=== PATIENT | male | born 1960 | race Caucasian/White ===

== ENCOUNTER → 2022-07-07 | Outpatient (CLI) | payer OTHER, SELFPAY ==
--- NOTE | 2022-07-07 06:57 | RAD_ITS ---
STUDY: X-RAY - CERVICAL SPINE REASON FOR EXAM: Male, 62 years old. Radiculopathy, cervical region TECHNIQUE: 3 view(s) of the cervical spine were obtained. COMPARISON: None FINDINGS: Normal anterior atlantoaxial articulation. Normal odontoid process. There is reversal of the normal cervical lordosis. There is 3 mm retrolisthesis C5, otherwise normal alignments. There is multi-level endplate spondylosis. There is multi-level degenerative disc disease with multilevel disc space narrowing. The soft tissue structures are unremarkable. There is no demonstrated fracture of the cervical spine. RAD/Cerv Spine 2 or 3 Views IMPRESSION: No abnormality. Degenerative changes as above. Electronically Signed: Rodrigo Mosquera MD at 18:22 EDT ,
--- NOTE | 2022-07-07 06:57 | RAD_ITS ---
STUDY: X-RAY - RIGHT SHOULDER REASON FOR EXAM: Male, 62 years old. RIGHT SHOULDER PAIN TECHNIQUE: 4 view(s) of the shoulder. COMPARISON: None. FINDINGS: Normal glenohumeral articulation. Normal acromioclavicular joint. Normal acromion. Normal humeral head and visualized proximal humerus. The soft tissue structures are unremarkable. There is no demonstrated fracture. Normal visualized pulmonary apex. RAD/Shoulder min 2 Views IMPRESSION: Normal x-ray examination of the shoulder. Electronically Signed: Rodrigo Mosquera MD at 20:26 EDT ,
== END | disposition home or self-care (01) ==
LOC: RAD 06:53
PROVIDERS: PCP Nurse Practitioner Family; Referring Provider Anesthesiology Pain Medicine; Visit Provider Anesthesiology Pain Medicine
DX: M25.511 Pain in right shoulder (principal); M54.12 Radiculopathy, cervical region
CPT/HCPCS: 72040; 73030

== ENCOUNTER → 2022-07-27 | Outpatient (CLI) | payer OTHER, SELFPAY ==
--- NOTE | 2022-07-27 07:00 | MRI_ITS ---
STUDY: MRI CERVICAL SPINE REASON FOR EXAM: Male, 62 years old. Radiculopathy TECHNIQUE: MRI examination cervical spine fusion protocol including multiplanar multiecho noncontrast imaging. Contrast: No contrast administered. COMPARISON: None FINDINGS: Vertebral bodies and alignment: 1. Vertebral body height is maintained, there is a short segment reversal cervical lordosis from C4 to C7. No evidence of marrow edema or occult fracture. 2. No evidence of marrow edema, fracture or subluxation. 3. Prevertebral soft tissue planes have normal appearance. 4. Normal appearance the odontoid process and alignment of the craniocervical junction. 5. Normal appearance the posterior muscular fascial planes of the cervical spine, and the posterior ligamentous support structure the cervical spine is intact. Intervertebral disc levels: C2-3: No disc herniation or canal stenosis. Mild LEFT foraminal narrowing due to uncovertebral joint hypertrophic changes. No osiris nerve root impingement. C3-4: Minimal broad-based disc bulge, no evidence of disc herniation or canal stenosis. Bilateral foraminal narrowing is noted severe on the LEFT moderate on the RIGHT. C4-5: Disc desiccation, no evidence of disc herniation or canal stenosis. Mild LEFT foraminal narrowing due to uncovertebral joint hypertrophic changes. Normal RIGHT neural foramen. C5-6: Disc desiccation, broad-based chronic appearing disc protrusion, deformity the anterior epidural space at, cord contact noted however thecal sac measures 11 mm in AP dimension. No cord compression. There is narrowing of neural foramina severe on the LEFT and moderate to severe on the RIGHT. C6-7: Disc desiccation, broad-based posterior disc bulge, no evidence canal stenosis. Bilateral foraminal narrowing contributed about vertebral joint hypertrophic changes. Severe bilateral foraminal stenosis noted. C7-T1: Normal endplates. Normal disc height, signal and morphology. Normal central canal and intervertebral neural foramina. Spinal CORD: There is normal appearance the spinal cord. There is cord contact at C5-6 however no evidence of acute cord compression. No intramedullary signal abnormality. No evidence of syrinx. Cervical medullary junction is normal. MRI/Spine Cervical (Routine) IMPRESSION: 1. Short segment reversal cervical lordosis I, there is a chronic appearing broad-based disc protrusion at C5-6. Deformity the intervertebral space and mild cord contact without evidence of acute cord compression. Bilateral foraminal stenosis noted at this level greater on the LEFT than RIGHT. 2. Mild chronic appearing disc bulges at remaining levels. No other evidence of disc herniation canal stenosis or cord compression. 3. Multilevel foraminal narrowing as detailed with potential of multilevel nerve root impingement. 4. Foraminal narrowing is severe on the LEFT at C3-4, severe at C5-6 greater on the LEFT than RIGHT, severe bilateral foraminal narrowing at C6-7. 5. Normal appearance of the spinal cord without intramedullary signal abnormality. No acute cord compression or syrinx Electronically Signed: Jerrell Lugo MD at 20:59 EDT ,
== END | disposition home or self-care (01) ==
PROVIDERS: PCP Nurse Practitioner Family; Referring Provider Anesthesiology Pain Medicine; Visit Provider Anesthesiology Pain Medicine
DX: M54.12 Radiculopathy, cervical region (principal)
CPT/HCPCS: 72141

== ENCOUNTER 2023-02-16 08:35 | Day surgery (SDC) | payer OTHER, SELFPAY ==
--- NOTE | 2023-02-08 12:30 | EKG12_ITS ---
Test Reason : PRE OP Blood Pressure : / mmHG Vent. Rate : 093 BPM Atrial Rate : 093 BPM P-R Int : 146 ms QRS Dur : 080 ms QT Int : 346 ms P-R-T Axes : 044 -21 027 degrees QTc Int : 430 ms Normal sinus rhythm Normal ECG Confirmed by MARINA WHEELER, RAISSA ([id number]), book editor ABDIRIZAK CASILLAS ([id number]) on 02/13/2023 8:37:24 AM Referred By: BILLY Confirmed By:EFREN GRAY MD
[2023-02-08 13:39] LABS: Absolute Lymphocyte Count 1.77 X10^3/uL (0.83-4.51); Absolute Neutrophil Count 7.9 X10^3/uL (2.0-7.7); Basophil# 0.05 X10^3/uL; Basophil% 0.5 % (0-1); Hematocrit 44.9 % (40-54); Hemoglobin 14.7 g/dL (13.0-16.5); Lymphocyte # 1.77 X10^3/ul (0.83-4.51); Mean Corp Hgb Conc 32.7 g/dL (32-36); Mean Corpuscular Hgb 29.5 pg (27.0-32.0); Mean Corpuscular Volume 90.2 fL (80-94); Mean Platelet Vol. 10.2 fl (6.2-12.0); Monocyte# 0.56 X10^3/uL; Monocyte% 5.4 % (0-10); NRBC Flagged by Analyzer 0 % (0-5); Neutrophil % 75.7 % (47-70); Platelet Count 235 K/mm3 (150-450); RBC Distribution Width SD 39.5 fl (35.1-43.9); Red Blood Count 4.98 M/mm3 (4.6-6.2); White Blood Count 10.4 K/mm3 (4.4-11.0)
[2023-02-16] VITALS (7 sets, daily range): BP systolic 114–136; BP diastolic 61–68; PULSE 61–80; RESP 16; TEMP 36.3–36.6; O2SAT 94–100; BMI 26.4
[2023-02-16] MEDS: Lactated Ringers 1,000 ML 15 ML IV (09:04)
[2023-02-16 09:53] LABS: Bedside Glucose 137 mg/dL (74-106)
[2023-02-16] MEDS: Ropivacaine 0.5% 30 ML Vial (10:56)
--- NOTE | 2023-02-16 11:30 | OP.PCM_ITS ---
Report of Operation Date of Procedure: 02/16/23 Description of Surgical Findings:: Preoperative diagnosis: Bilateral carpal Tunnel Syndrome Postoperative diagnosis: Bilateral carpal Tunnel Syndrome Procedure: Bilateral endoscopic Carpal Tunnel Release Surgeon: Florentino Schneider DO Anesthesia: MAC with local Instructor Ground Services: Pedro Rosario CRNA Complications: None apparent Drains: None Estimated blood loss: 2 cc Urinary output: None measured IV fluids: Per anesthesia record Specimens: None Surgical implants: None Surgical indications: This is a 62-year-old male seen in the outpatient setting diagnosed with bilateral carpal tunnel syndrome. The patient failed nonoperative management in the form of bracing, anti-inflammatory medications, activity modification. Operative intervention in form of endoscopic possible open carpal tunnel release was offered to bilateral hands. The risks, benefits, alternatives to procedure were reviewed with patient at length in the outpatient setting and he agreed to proceed. Risks included but were not limited to bleeding, infection, loss of life or limb, risk of anesthesia, incomplete release, neurovascular injury, persistent pain, need for additional surgery, stiffness, loss of hand function. Patient expressed understanding wish to proceed with surgery. Informed consent obtained in the office. Description of procedure: Patient was seen in preoperative holding area. Patient was identified by name, medical record number, date of . The operative extremities were marked with a surgical marker. We confirmed informed consent with the patient and all questions were answered to the patient's satisfaction. At time of his procedure, patient was brought to the operative suite and positioned supine a standard operating table. All bony prominences were well- padded. Gentle MAC anesthesia was induced. Bilateral upper extremities were then prepped for surgery by first applying a well-padded pneumatic tourniquet to the upper arms. We spun the bed approximately 45 degrees. 2 g Ancef was administered prior to incision by anesthesia staff. Tumescent field blocks were administered with 10 cc in each and of 0.5% plain ropivacaine. We then prepped and draped bilateral upper extremities. We performed a timeout at this point confirming side, site, and operation to be performed. No concerns voiced and elected to proceed. I began surgery on the right side, as this was the more symptomatic side. Hand was exsanguinated and tourniquet was inflated to 250 mmHg. I first marked a transverse incision on the ulnar aspect of the palmaris longus tendon in the proximal wrist crease approximately 1 cm in length. Skin was sharply incised with 15 blade scalpel. Superficial veins were cauterized with bipolar cautery. The fatty layer was dissected through bluntly until the antebrachial fascia was encountered. The antebrachial fascia were split in line with the fibers as well as the incision with the Littler scissors. I then placed a skin hook around the antebrachial fascia distally. I open the proximal 1 cm longitudinally of the an tebrachial fascia. I then sequentially dilated within the carpal tunnel utilizing Arthrex supplied dilators. I then utilized there synovial elevator to debride the undersurface of the transverse carpal ligament free from synovium. I then removed the elevator and inserted the centerline endoscopic carpal tunnel release system. The transverse carpal ligament was well visualized and free from underlying synovium. I identified its distal aspect by blotting the skin and perivascular fat was visualized. I then carefully deployed the scalpel from the sheath and, in retrograde fashion, sequentially released the transverse carpal ligament longitudinally. No aberrancies of the median nerve were apparent. Complete release was confirmed with Littler scissors acting as a probe. The tourniquet was then deflated. Hemostasis was excellent. Skin was closed with interrupted horizontal mattress suture of 4-0 nylon suture. Sterile compression dressing was then applied. I then turned my attention to the left side. Hand was exsanguinated and tourniquet inflated to 250 mmHg. I then marked a transverse incision on the ulnar aspect of the palmaris longus tendon in the proximal wrist crease approximately 1 cm in length. Skin was sharply incised with 15 blade scalpel. Superficial veins were cauterized with bipolar cautery. The fatty layer was dissected through bluntly until the antebrachial fascia was encountered. The antebrachial fascia were split in line with the fibers as well as the incision with the Littler scissors. I then placed a skin hook around the antebrachial fascia distally. I opened the proximal 1 cm longitudinally of the antebrachial fascia. I then sequentially dilated within the carpal tunnel utilizing Arthrex supplied dilators. I then utilized there synovial elevator to debride the undersurface of the transverse carpal ligament free from synovium. I then removed the elevator and inserted the centerline endoscopic carpal tunnel release system. The transverse carpal ligament was well visualized and free from underlying synovium. I identified its distal aspect by blotting the skin and perivascular fat was visualized. I then carefully deployed the scalpel from the sheath and, in retrograde fashion, sequentially released the transverse carpal ligament longitudinally. No aberrancies of the median nerve were apparent. Complete release was confirmed with Littler scissors acting as a probe. The tourniquet was then deflated. Hemostasis was excellent. Skin was closed with interrupted horizontal mattress suture of 4-0 nylon suture. Sterile compression dressing was then applied. Patient tolerated procedure well without apparent complication. Patient was awakened from anesthesia. Patient was transferred to PACU in stable condition. Intraoperative medications: Post Operative Plan: Weightbearing: Weightbearing as tolerated bilateral upper extremities Antibiotics: Ancef 2 g x 1 dose preoperatively DVT Prophylaxis: None indicated Cooney: None Dressing: Okay to remove on postoperative day #2, shower. Apply Band-Aid X-Rays: None Pain Medication: [facility] provided Follow-up: 2 weeks post-operatively with me in the office
[2023-02-16] MEDS: Ketorolac 30 MG/ML Syringe IV (11:50)
== END 2023-02-16 12:25 | disposition home or self-care (01) ==
LOC: SDC 08:36 → AC 08:37
PROVIDERS: PCP Nurse Practitioner Family; Referring Provider Student in an Organized Health Care Education/Training Program; Visit Provider Student in an Organized Health Care Education/Training Program
PROC: (CPT 29848; principal; 2023-02-16 10:10)
DX: G56.03 Carpal tunnel syndrome, bilateral upper limbs (principal); E11.9 Type 2 diabetes mellitus without complications; Z86.718 Personal history of other venous thrombosis and embolism; E78.00 Pure hypercholesterolemia, unspecified; Z87.09 Personal history of other diseases of the respiratory system; Z86.16 Personal history of COVID-19; M18.0 Bilateral primary osteoarthritis of first carpometacarpal joints; M19.042 Primary osteoarthritis, left hand; E66.3 Overweight; Z68.26 Body mass index [BMI] 26.0-26.9, adult
CPT/HCPCS: 29848; 01810; 36415; 82962; 85025; 93005; J7120; J2405

== ENCOUNTER 2023-06-15 07:30 | Outpatient (RCR) | payer OTHER, SELFPAY ==
--- NOTE | 2023-05-26 12:51 | HP.OTEVAL ---
Patient's Visit Information Visit Information Visit Information: MARIELENA FARRELL Jr. is a 62 year old M, referred to Occupational Therapy by Dr. Florentino Schneider DO, with a diagnosis of OA/CTS. Date of Evaluation: 05/26/23 Occupational Therapist: VIJI Wong/Tameka, CHT Subjective Subjective: This 62 year old male was seen for OT eval with dx of CTS and had sx in 2022. Pt states he did have CTS for about two years prior to having sx. Pt also was dx with Bilateral primary osteoarthritis of first carpometacarpal joints. Pt is taking meloxicam in am and pm - pt states he just started back up on that medication. pt state pain in bilateral thumbs and wrist- pt states he does not wear thumb or wrist braces. pt is right handed works round [employer]. 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 Pain right hand: Current Pain Intensity: 1 Pain Intensity Range: 5 left hand: Current Pain Intensity: 2 Pain Intensity Range: 7 ROM Wrist: right 65/60 pain with motion left 75/70 CMC: right 20 left 15* MP: right 40 left 30* IP: right 55 left 50* Palmar Abduction: right 40* therapist felt grind left 30* ROM Comments: therapist can feel grinding with just CMC AROM Strength Sprayer Automatic Spray Machine: right 65# left 85# Lateral Pinch: right 12# left 14# Tripod Pinch: right 10# left 12# Sensation Sensation Comments: denies Quick DASH-Disab of Arm,Shoulder& Hand Quick DASH Score: 55.3550 Goals Goal:: pt will report no pain greater than 3/10 with use of cmc bracing for heavy work and yard tasks by d.c Goal:: Pt will demo understanding of joint protection and ergonomics when performing BADLs and IADLs by d/c Pt will demo understanding of adaptive Equipment use to decrease stress on joints to allow pt to perform BADSL and IADLS at MARTHA level. Goal:: Dash score will improve 10points indication of improved performance of ADLs by d.c Goal:: Pt will demo understanding of using supportive bracing 80% of workday/ADLS to decrease stress on tendon origin to allow healing and decrease pain by end of 3nd session. Rehabilitation General Assessment: pt demo with positive symptoms of bilateral CMC J OA pain and deformity. this is limiting pts ability to perform daily mtg of work tasks. pt would benefit from skilled OT services 1-2x week for 3 -4 weeks to ed. pt on joint protection, use of bracing, and ergo changes to decrease stress on bilateral hands, to decrease pain by d.c. today therapist ed pt on joint protection and ergo changes for work tasks- as well as bracing cmcj- pt receptive to bracing- will continue to explore bracing to ensure good ability with brace- pt demo understanding and agree to POC. Rehabilitation Potential: Good Anticipated Interventions Anticipated Interventions: A/AAROM/PROM, Strengthening and Triggerpoint Release Visit Plan Frequency: 2x /Week Duration: 3 Weeks TEXT: Thank you for the opportunity to evaluate your patient. For Medicare and Medicare HMO plans, please review the plan of care and approve it. It will need to be FAXED BACK to us at [phone] for Medicare purposes. Please let me know if there are questions or concerns regarding this plan of care. Physician Signature: Date:
--- NOTE | 2023-06-15 07:55 | HP.OTDCSUM ---
Discharge Summary D/C Summary: It has been my pleasure to treat MARIELENA FARRELL Jr. under orders from Dr. Florentino Schneider, DO, for the diagnosis of OA/CTS for a total of 7 visit(s). Please see the following information for a summary of their discharge status. 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 05/06-07/06. Right more painful than left- pt has been ed. in joint protection fátima. and work ergo. etc. pt demo understanding. Wrist: right 65/70 ( flexion increased by 10*) left 75/70 no change from eval CMC: right 25 increased by 5* left 20* increase from 15* MP: right 45* increase by 5* left 40* increase from 30* IP: right 60* increased from 55 left 60* increase from 50* Palmar Abduction: right 40* therapist felt grind left 30* ROM Comments: therapist can feel grinding with just CMC AROM Strength Farm Management Teacher: right 60# decrease but painful with resistive furnace brazer testing initial was 65# left 85# Lateral Pinch: right 12# left 14# Tripod Pinch: right 10# left 12# pts ROM and strength limited with Pain . pt using bracing to support CMC while working. Goals Patient Goals: Decrease Pain and Use Hand/Wrist/Arm Normally Again Goal:: pt will report no pain greater than 3/10 with use of cmc bracing for heavy work and yard tasks by d.c (Goal is met) Goal:: Pt will demo understanding of joint protection and ergonomics when performing BADLs and IADLs by d/c ( goal Met) Pt will demo understanding of adaptive Equipment use to decrease stress on joints to allow pt to perform BADSL and IADLS at MARTHA level. (Goal Met) Goal:: Dash score will improve 10points indication of improved performance of ADLs by d.c Goal:: Pt will demo understanding of using supportive bracing 80% of workday/ADLS to decrease stress on tendon origin to allow healing and decrease pain by end of 3nd session. ( goal met) Plan Plan: D/C D/C Information Discharge Comments: Pt was seen in OT for 7 sessions- pt did Meet OT goals. Pt will return to for Further discussion on pursuing [facility] [place] in [place]- Nov. d/c sentence: If there are questions or concerns regarding this patient's occupational therapy, please fell free to call me at [phone]. Thank you for the referral of this patient. Sincerely, Cece Almonte, OTR/L, CHT
== END 2023-06-15 09:41 | disposition home or self-care (01) ==
LOC: OT 07:30
PROVIDERS: PCP Nurse Practitioner Family; Referring Provider Student in an Organized Health Care Education/Training Program; Visit Provider Student in an Organized Health Care Education/Training Program
DX: M18.0 Bilateral primary osteoarthritis of first carpometacarpal joints (principal); G56.03 Carpal tunnel syndrome, bilateral upper limbs
CPT/HCPCS: 97035; 97110; 97140; 97166; 97530

== ENCOUNTER 2024-02-02 08:01 | Emergency (ER) | payer OTHER, SELFPAY ==
[2024-02-02] VITALS (7 sets, daily range): BP systolic 109–130; BP diastolic 62–75; PULSE 68–86; RESP 15–20; TEMP 36.4–37; O2SAT 96–100; BMI 24.5
--- NOTE | 2024-02-02 08:12 | CT_ITS ---
STUDY: CT ABDOMEN AND PELVIS WITH CONTRAST REASON FOR EXAM: Male, 63 years old. Right flank pain RADIATION DOSAGE (If Supplied By Facility): CTDIvol = ( 18.23 ) mGy, DLP = ( 998.16 ) mGycm TECHNIQUE: Transaxial images were obtained from the dome of the diaphragm to the symphysis pubis without oral contrast. IV 100mL Isovue-300 was administered. Sagittal and coronal images were reconstructed. Individualized dose optimization techniques were used for this CT. COMPARISON: None. FINDINGS: The visualized lung bases are unremarkable. Coronary artery calcification. There is decreased attenuation of the liver consistent with steatosis. Normal gallbladder and extrahepatic biliary system. Normal spleen. Normal pancreas. Normal bilateral adrenal glands. There is an 8 mm cyst in the anterior aspect of the right kidney. There is a 4.8 mm nonobstructive left intrarenal calculus. There is a small hiatal hernia. Normal small intestine. Normal colon. The appendix is visualized and appears normal. Normal abdominal aorta. Normal inferior vena cava. Normal retroperitoneum. Normal urinary bladder. There is heterogeneous enlargement of the prostate measuring 5 cm x 5.5 cm. This causes indentation of the bladder base. Normal abdominal wall. Disc space narrowing and degeneration with spondylosis at the L5-S1 CT/Abdomen/Pelvis W IV Cont ONLY IMPRESSION: Nonobstructive left intrarenal calculus. Small right renal cyst. No evidence of ureteral obstruction. Fatty infiltration of the liver. Heterogeneous enlargement of the prostate with indentation at the bladder base. Electronically Signed: Dez Story MD at 9:13 EST ,
--- NOTE | 2024-02-02 08:13 | EX.ED.DYSGE1 ---
HPI History of Present Illness Chief Complaint: Flank Pain Narrative Narrative: Patient is a 63-year-old male who is presenting to the ER with chief complaint of nausea, vomiting, right flank pain. Patient is at bedside. Patient started having right lower back and right flank pain yesterday at 1 PM. Patient left work. Patient's pain was intermittent last evening with intensity. Patient said he was able to sleep, but when he woke up this morning he was having more right lower back pain and right flank pain. Patient has no fever or chills. No chest pain or shortness of breath. He still has his gallbladder and appendix. Patient had no difficulty urinating last evening or today. Patient is a recent heavy lifting twisting or turning. No recent trauma. No radiation of pain down into his right leg. Patient has no history of kidney stone. No other acute complaints. Patient did have 2 loose stools earlier this morning. [facility] Medical History (Updated 02/02/24 @ 13:[address] Jesus Bell, DO) Loss of hearing Wears glasses Anxiety Arthritis Diabetes DVT (deep venous thrombosis) High cholesterol Injury of head and neck Dietary restriction Non-smoker Leg cramps History of deviated nasal septum Home Medications ?Medication ?Instructions ?Recorded ?Last Taken ?Type meloxicam 15 mg tablet 15 mg PO DAILY PRN pain 02/08/23 Unknown History metformin 1,000 mg tablet 1,000 mg PO BID 02/08/23 Unknown History simvastatin 40 mg tablet 40 mg PO DAILY 02/08/23 Unknown History dicyclomine 10 mg capsule 20 mg (2 x 10 mg) PO TIDAC #20 02/02/24 Unknown Rx CAPSULES fluoxetine 10 mg capsule 10 mg PO DAILY 02/02/24 Unknown History ondansetron 4 mg disintegrating 4 mg PO Q8H PRN PRN Nausea #10 tabs 02/02/24 Unknown Rx tablet semaglutide 2 mg/dose (8 mg/3 mL) 2 mg subcut QWEEK 02/02/24 Unknown History subcutaneous pen injector (Ozempic) Allergy/AdvReac Type Severity Reaction Status Date / Time No Known Allergies Allergy Verified 02/02/24 08:27 Social History Smoking Status: Never smoker ROS ROS ED ROS Narrative REVIEW OF SYSTEMS: Unless otherwise stated in this report the patient's positive and negative responses for review of systems for constitutional, eyes, ENT, cardiovascular, respiratory, gastrointestinal, neurological, , musculoskeletal, and integument systems and related systems to the presenting problem are either stated in the history of present illness or were not pertinent or were negative for the symptoms and/or complaints related to the presenting medical problem. EXAM Physical Exam Narrative Exam Narrative: Vital signs reviewed and patient is not hypoxic. General: The patient appears moderate distress secondary to pain and discomfort, patient is holding his right flank. Patient is resting uncomfortably on cart. Not toxic, lethargic, or listless. Skin: Clammy; not diaphoretic, dry, no pallor noted. There is no rash noted. Head: Normocephalic, atraumatic Eye: Normal conjunctiva, no drainage, EOMI. PERRL. Ears, Nose, Mouth, and Throat: oral mucosa is moist. Nares patent. Mouth without vesicles. Poor dentition, no secondary signs of infection. Cardiovascular: Regular Rate and Rhythm, no murmurs, gallops, or rubs Respiratory: Patient is in no distress, no accessory muscle use, lungs are clear to auscultation, no wheezing, rales or rhonchi Back: non-tender, right CVA tenderness to palpation moderate, no left CVA tenderness palpation. Mild to moderate right flank pain, no left flank pain. No right lower quadrant tenderness to palpation, no suprapubic tenderness to palpation. NO CTLS midline or paraspinal tenderness to palpation. GI: Soft, no tenderness to palpation, no masses appreciated. No rebound, guarding, or rigidity noted. Musculoskeletal: The patient has full range of motion of all extremities and joints with no difficulty. Patient has no motor, no sensory deficits. Neurological: A&O x4, normal speech, no focal neurological deficits. Psychiatric: Cooperative Const Vital Signs: 02/02/24 08:01 02/02/24 08:30 02/02/24 09:13 Temperature 98.6 F 98.6 F 97.5 F L Temperature Source Temporal Oral Oral Pulse Rate 80 80 68 Respiratory Rate 20 H 20 H 15 Blood Pressure 130/75 H 130/75 H 109/63 Blood Pressure Mean 93 93 78 Pulse Ox 100 100 100 Oxygen Delivery Method Room Air Room Air Room Air 02/02/24 10:07 02/02/24 11:35 02/02/24 12:28 Temperature 97.5 F L 98.1 F Temperature Source Oral Oral Pulse Rate 86 84 86 Respiratory Rate 17 16 17 Blood Pressure 113/66 112/62 121/66 H Blood Pressure Mean 81 78 84 Pulse Ox 96 97 96 Oxygen Delivery Method Room Air Room Air Room Air 02/02/24 13:31 Temperature 98.2 F Temperature Source Pulse Rate 74 Respiratory Rate 16 Blood Pressure 126/70 H Blood Pressure Mean 88 Pulse Ox 99 Oxygen Delivery Method MDM MDM MDM Narrative Medical decision making narrative: CT report shows no acute findings. Patient has benign findings of fatty liver, right kidney cyst, enlarged prostate. Patient is aware of his left kidney stone. Patient has no other acute intra-abdominal findings. Patient lab work and urine showed no other significant findings. Education was done at bedside and all the incidental findings of his CT of his abdomen pelvis. Patient was given a copy of his CT report. Patient does not know when the last time he saw his PCP and had a regular laboratory testing including PSA. Patient will call today to make an appointment for his PCP for general prophylactic testing as needed and follow-up on all the incidentals that were found today. Patient was sent with Zofran and Bentyl prophylactically. Reassessment of patient's abdomen at discharge shows a soft, nontender, no guarding rebound rigidity. No flank pain. No CVA tenderness. Patient has a completely benign abdomen, lower back and flank. Patient feels good at discharge. Lab Data Labs: Laboratory Results - last 24 hr 02/02/24 02/02/24 08:10 09:40 WBC 8.6 RBC 5.10 Hgb 15.1 Hct 45.3 MCV 88.8 MCH 29.6 MCHC 33.3 RDW Std Deviation 37.8 RDW Coeff of Lucia 11.7 Plt Count 227 MPV 9.7 Immature Gran % (Auto) 0.200 Neut % (Auto) 70.2 H Lymph % (Auto) 19.5 Gove % (Auto) 7.8 Eos % (Auto) 2.0 Baso % (Auto) 0.3 Absolute Neuts (auto) 6.0 Absolute Lymphs (auto) 1.67 Nucleated RBC % 0 Sodium 136 Potassium 4.4 Chloride 102 Carbon Dioxide 26.0 Anion Gap 8 BUN 18 Creatinine 1.05 Estim Creat Clear Calc 83.49 Est GFR (MDRD) Af Amer 92 Est GFR (MDRD) Non-Af 76 BUN/Creatinine Ratio 17.1 Glucose 233 H Lactic Acid 2.2 H* Calcium 9.6 Total Bilirubin 0.80 AST 19 ALT 25 Alkaline Phosphatase 95 Total Protein 7.7 Albumin 3.9 Globulin 3.8 Albumin/Globulin Ratio 1.0 Lipase 51 Urine Color Straw Urine Clarity Clear Urine pH 8.0 Ur Specific [place] 1.010 Urine Protein 30 H Urine Glucose (UA) Normal Urine Ketones 50 H Urine Occult Blood Negative Urine Nitrite Negative Urine Bilirubin Negative Urine Urobilinogen Normal Ur Leukocyte Esterase 25 H Urine RBC 0 SEEN Urine WBC 5-10 SEEN Ur Squamous Epith Cells 0 SEEN Urine Bacteria 0 SEEN Urine Mucus 0 SEEN Radiography Diagnostic Testing: Clinical Impression(s) from Imaging Studies Abdomen/Pelvis CT 02/02/24 08:12 IMPRESSION: Nonobstructive left intrarenal calculus. Small right renal cyst. No evidence of ureteral obstruction. Fatty infiltration of the liver. Heterogeneous enlargement of the prostate with indentation at the bladder base. Electronically Signed: Dez Story MD at 9:13 EST , Discharge Plan Triage Chief Complaint: Flank Pain ED Provider: Jesus Bell Dx/Rx/DC Orders Clinical Impression: Right flank pain, Right lumbar pain Instructions: Abdominal Pain, NAFLD, Back Exercises: Lower Back Stretch, Simple Kidney Cysts, ED BPH (Enlarged Prostate), ED Flank Pain, Uncertain Cause, ED Pain, Acute, Uncertain Cause Prescriptions: New ondansetron 4 mg tablet,disintegrating 4 mg PO Q8H PRN PRN (Reason: Nausea) Qty: 10 0RF dicyclomine 10 mg capsule 20 mg PO TIDAC Qty: 20 0RF No Action metformin 1,000 mg tablet 1,000 mg PO BID simvastatin 40 mg tablet 40 mg PO DAILY meloxicam 15 mg tablet 15 mg PO DAILY PRN (Reason: pain) fluoxetine 10 mg capsule 10 mg PO DAILY Ozempic 2 mg/dose (8 mg/3 mL) pen injector 2 mg subcut QWEEK Primary Care Provider: Elie Garcia NP Referrals: Elie Garcia NP, [employer] [Primary Care Provider] - Activity Restrictions/Additional Instructions: Use Zofran as needed for nausea, use Bentyl as needed for abdominal cramping. Follow-up with your PCP for outpatient lab testing including PSA and additional prostate testing is recommended. Education on fatty liver and right kidney cyst was given to you for educational purposes only. Follow-up for further testing as indicated from your PCP. If any other significant acute concerns, intractable pain, nausea, vomiting or anything else acute returns, return back to the ER. Print Language: Beninese Disposition Disposition: Home, Self Care Discharge Date/Time: 02/02/24 13:32
[2024-02-02] MEDS: Ondansetron 4 MG/2 ML Vial IV (08:23)
[2024-02-02] MEDS: Morphine 4 MG/ML Syringe IV (08:23)
[2024-02-02] MEDS: Ketorolac 15 MG/ML Vial IV (08:23)
[2024-02-02 08:35] LABS: Absolute Lymphocyte Count 1.67 X10^3/uL (0.83-4.51); Basophil# 0.03 X10^3/uL; Basophil% 0.3 % (0-1); Eosinophil# 0.17 X10^3/uL; Hematocrit 45.3 % (40-54); Hemoglobin 15.1 g/dL (13.0-16.5); Lymphocyte # 1.67 X10^3/ul (0.83-4.51); Lymphocyte % 19.5 % (19-41); Mean Corp Hgb Conc 33.3 g/dL (32-36); Mean Corpuscular Hgb 29.6 pg (27.0-32.0); Mean Corpuscular Volume 88.8 fL (80-94); Mean Platelet Vol. 9.7 fl (6.2-12.0); Monocyte# 0.67 X10^3/uL; Monocyte% 7.8 % (0-10); NRBC Flagged by Analyzer 0 % (0-5); Neutrophil # 6.02 X10^3/uL (2.7-7.7); Neutrophil % 70.2 % (47-70); Platelet Count 227 K/mm3 (150-450); RBC Distribution Width CV 11.7 % (11.6-14.6); RBC Distribution Width SD 37.8 fl (35.1-43.9); White Blood Count 8.6 K/mm3 (4.4-11.0)
[2024-02-02 08:50] LABS: AST(SGOT) 19 U/L (15-37); Alanine Aminotransfer ALT/SGPT 25 U/L (16-61); Albumin, Serum 3.9 g/dL (3.2-5.0); Alkaline Phosphatase 95 U/L (45-117); Anion Gap 8 (5-15); BUN 18 mg/dL (7-18); BUN/Creat Ratio 17.1 RATIO (10-20); Calcium,Total 9.6 mg/dL (8.5-10.1); Chloride 102 mmol/L (98-107); Creatinine, Serum 1.05 mg/dL (0.70-1.30); EST Glomerular Filtration Rate 76 mL/min (>60); Est Glom Filt Rate - Afr Amer 92 mL/min (>60); Estimated Creatinine Clearance 83.49 ml/min; Globulin 3.8 g/dL (2.2-4.2); Glucose 233 mg/dL (74-106); Lipase 51 U/L (13-75); Potassium 4.4 mmol/L (3.5-5.1); Protein, Total 7.7 g/dL (6.4-8.2); Sodium Level 136 mmol/L (136-145)
[2024-02-02 09:03] LABS: Lactic Acid 2.2 mmol/L (0.4-1.9)
[2024-02-02 09:46] LABS: Bacteria 0 SEEN /hpf (None Seen); Mucous, Urine 0 SEEN /hpf (<or=2+); Red Blood Cells-Urine 0 SEEN /hpf (0-5); Squamous Epithelial Cells - UA 0 SEEN /hpf (0-5)
[2024-02-02 09:51] LABS: Color, Urine Straw (Yellow); Glucose, Dipstick Normal (Normal); Ketone-Dipstick 50 mg/dl (Negative); Leukocyte Esterase-Dipstick 25 /ul (Negative); Nitrite-Dipstick Negative (Negative); Occult Blood-Urine Negative /ul (Negative); Protein-Dipstick 30 mg/dl (Negative); Urine Bilirubin Dipstick Negative (Negative); Urine Clarity Clear (Clear); Urine Urobilinogen Normal (Normal)
[2024-02-02 10:01] LABS: White Blood Cells 5-10 SEEN /hpf (0-5)
[2024-02-02 12:30] LABS: Reflex Lactate? Y
== END 2024-02-02 13:32 | disposition home or self-care (01) ==
PROVIDERS: Emergency Provider Emergency Medicine; PCP Nurse Practitioner Family; Visit Provider Emergency Medicine
DX: R10.9 Unspecified abdominal pain (principal); E11.9 Type 2 diabetes mellitus without complications; M54.50 Low back pain, unspecified; K76.0 Fatty (change of) liver, not elsewhere classified; E78.00 Pure hypercholesterolemia, unspecified; R11.2 Nausea with vomiting, unspecified; Z79.84 Long term (current) use of oral hypoglycemic drugs; Z79.85 Long-term (current) use of injectable non-insulin antidiabetic drugs; Z79.899 Other long term (current) drug therapy
CPT/HCPCS: 74177; 80053; 81001; 83605; 83690; 85025; 96374; 96375; 99283; Q9967; A4216; J2405

== ENCOUNTER → 2024-02-29 | Outpatient (CLI) | payer OTHER, SELFPAY ==
--- NOTE | 2024-02-29 07:00 | EKG12_ITS ---
Test Reason : PRE OP Blood Pressure : */* mmHG Vent. Rate : 80 BPM Atrial Rate : 80 BPM P-R Int : 164 ms QRS Dur : 76 ms QT Int : 362 ms P-R-T Axes : 66 18 44 degrees QTcB Int : 417 ms Normal sinus rhythm Normal ECG Confirmed by VINI WHEELER, ARELIS ([id number]), scientific publications editor ABDIRIZAK CASILLAS ([id number]) on 03/01/2024 6:27:53 AM Referred By: Frances Escobedo Confirmed By: ARELIS MARTINI MD
== END | disposition home or self-care (01) ==
LOC: PSN 06:57
PROVIDERS: PCP Nurse Practitioner Family; Referring Provider Physician Assistant Surgical; Visit Provider Physician Assistant Surgical
DX: Z01.818 Encounter for other preprocedural examination (principal)
CPT/HCPCS: 93005

== ENCOUNTER → 2024-03-11 | Outpatient (CLI) | payer OTHER, SELFPAY ==
[2024-03-11 18:57] LABS: Hemoglobin A1c 6.9 % (3.8-5.6)
== END | disposition home or self-care (01) ==
LOC: MTLAB 15:30
PROVIDERS: PCP Nurse Practitioner Family; Referring Provider Student in an Organized Health Care Education/Training Program; Visit Provider Student in an Organized Health Care Education/Training Program
DX: E11.9 Type 2 diabetes mellitus without complications (principal)
CPT/HCPCS: 36415; 83036

== ENCOUNTER 2024-06-04 07:30 | Outpatient (RCR) | payer OTHER, SELFPAY ==
--- NOTE | 2024-04-16 10:47 | HP.OTEVAL ---
Patient's Visit Information Visit Information Visit Information: MARIELENA FARRELL Jr. is a 63 year old M, referred to Occupational Therapy by MANJEET Ochoa, with a diagnosis of right CMC primary OA. Date of Evaluation: 04/15/24 Occupational Therapist: Cece Almonte, ANISHAR/Tameka, CHT Subjective Subjective: This 63 year old male was seen for OT eval with dx of right unilateral primary osteoarhritis of first carpometacarpal joint. pt states pain became so bad he decided to have sx. belives sx was on 03/13/24 with cast placed on 03/29/24. pt states pain is gone and he is feeling great! pt arrives to day 4 weeks and 5 days s/p from a right cmc arthroplasty. ROM Wrist: right 45/20 left 75/70 CMC: right 0 left 20 MP: right 20 left 45 IP: right 25 left 40 Strength Visual Basic .Net Developer: right NT left 85# Lateral Pinch: right NT left 12# Strength Comments: will test strength at later date Sensation Sensation Comments: denies Quick DASH-Disab of Arm,Shoulder& Hand Quick DASH Score: 64.2850 Goals Goal:100% adherence to protocol: Yes Comment: cmc arthroplasty guidelines Goal:Daily scar massage when approriate: Yes Goal:ROM equal to unaffected hand: Yes Goal:Visual Basic .Net Developer/Pinch strength at least 75% of unaffected hand: Yes Goal:No pain with affected hand use: Yes Goal:Full use of affected hand in daily activities including work: Yes Other Goal: orthosis use pt will demo understanding of orthosis use by end of 1st session. Rehabilitation General Assessment: pt arrives 4 weeks and 5 days s/p from right cmc arthroplasty. pt demo with newly healing structure's limiting pts functional use of right dominate hand for ADLs and IADs. pt demo need for skilled OT services 1-2x week for 8 weeks to return pt to a functional use of right dominate hand with ADLs and IADLs. Today therapist jonathan. custom thumb spica orthosis to provide support and protection to right CMC. therapist ed. pt on use care and precautions pt demo understanding. therapist ed. pt on wrist ROM and initial of IP and MP flexion - adding in CMC motion in one week. pt demo understanding and agre to POC. Rehabilitation Potential: Good Anticipated Interventions Anticipated Interventions: A/AAROM/PROM, Strengthening, Scar Care, Triggerpoint Release, Desensitization, Modalities, Orthoses, Joint Protection/Energy Conservation, Ergonomic Education, Education re assistive Equipment, Education re Diagnosis and Home Program Visit Plan Frequency: 2-3x /Week Duration: 2 Months General Plan: week 4 Begin MP and IP thumb flexion and extension with cmc SUPPORTED OK for Full wrist ROM Week 6 Begin gentle thumb CMC ROM PROM of wrist Pre-jonathan hand based thumb orthosis of pts choice for daytime Begin retraining of stable CMC position. Week 7 20-30* of MP flexion is adequate Dr. Diggs does not want HYPEREXTENSION at the MP IF there is less than 20-30* of MP flexion, can begin gentle PORM for MP flexion only supporting CMC Week 10 if pt is progressing with finger and wrist motion and is able to demonstrate ability to maintain a stable thumb, may begin hand strengthening. If thumb stability in not achieved at this time * HOLD * on strengthening until week 12 s/p ALL Strengthening is to be performed as tolerated and pain free TEXT: Thank you for the opportunity to evaluate your patient. For Medicare and Medicare HMO plans, please review the plan of care and approve it. It will need to be FAXED BACK to us at [phone] for Medicare purposes. Please let me know if there are questions or concerns regarding this plan of care. Physician Signature: Date:
--- NOTE | 2024-10-31 09:54 | HP.OT.NRP ---
Patient Information Patient Information: MARIELENA FARRELL Jr. was seen in my office for initial evaluation on 04/15/24. The following Plan of Care was established for this patient: POC Established Initial Frequency: 2-3x /Week Initial Duration: 2 Months Plan: week 11 gentle strengthening no hyperextension at MP joint Anticipated Interventions Anticipated Interventions: A/AAROM/PROM, Strengthening, Scar Care, Triggerpoint Release, Desensitization, Modalities, Orthoses, Joint Protection/Energy Conservation, Ergonomic Education, Education re assistive Equipment, Education re Diagnosis and Home Program Last Seen Last Seen: This patient was last seen in our office 06/04/24. Pertinent comments regarding their Occupational therapy will appear below: No further apts have been scheduled. Due to time lapse in service pt is d/c. At this point I will be discontinuing this patient from occupational therapy. I would be happy to see this patient again in the future if found appropriate by the physician. Thank you! Cece Almonte, OTR/L, CHT
== END 2024-06-04 19:00 | disposition home or self-care (01) ==
LOC: OT 07:30
PROVIDERS: PCP Nurse Practitioner Family; Visit Provider Physician Assistant Surgical
DX: M18.11 Unilateral primary osteoarthritis of first carpometacarpal joint, right hand (principal)
CPT/HCPCS: 97110; 97140; 97166; 97530; 97760

== ENCOUNTER → 2025-01-29 | Outpatient (CLI) | payer OTHER, SELFPAY ==
--- OUTSIDE RECORDS SUMMARY | 2025-01-29 07:40 | XMS RPT_ITS | CCD ---
Author Organization [facility] Care Team Providers Care Tie Tamper Name Role Phone Blaz LOAN CLOSER.GIS ADMINISTRATOR, Jakob KERR Primary Care Provider Ching Leonard MD Primary Care Provider Ching Leonard MD Primary Care Provider Ching Leonard MD Primary Care Provider Monique CAN SOLDERER, CAN SOLDERER-C Elie Primary Care Provider Dr. Rohini Beckwith Attending Provider Dr. Florentino Schneider Referring Provider Ching Leonard MD Primary Care Provider Mignon LOAN CLOSER.Alicia MOHAMUD Unavailable Monique LOAN CLOSER.Elie MOHAMUD Unavailable ELIE AMAYA Referring Unavailable ELDERBROCK, CHING Primary Care Unavailable MONIQUEELIE Attending Unavailable ELDERBROCK, CHING Primary Care Unavailable ELDERBROCK, CHING Referring Unavailable ELDERBROCK, CHING Primary Care Unavailable ELDERBROCK, CHING Attending Unavailable ELDERBROCK, CHING Primary Care Unavailable MONIQUEELIE Referring Unavailable ELDERBROCK, CHING Primary Care Unavailable MONIQUE, ELIE Attending Unavailable ELDERBROCK, CHING Primary Care Unavailable LAZARUS HDZ Attending Unavailable ELDERBROCK, CHING Primary Care Unavailable LAZARUS HDZ Attending Unavailable ELDERBROCK, CHING Primary Care Unavailable TESTRAKEADRIAN Attending Unavailable TESTRAKE, ADRIAN Referring Unavailable ELDERBROCK, CHING Primary Care Unavailable TESTRAKE, ADRIAN Referring Unavailable ELDERBROCK, CHING Primary Care Unavailable TESTRAKE, ADRIAN Referring Unavailable ELDERBROCHING BEEBE Primary Care Unavailable ADRIAN LEAHY Attending Unavailable CHING LEONARD Primary Care Unavailable Monique CAN SOLDERER-C, Elie Primary Care Physician Monique CAN SOLDERER-C, Elie Referring Provider Abbe Jackson Attending Physician Monique CAN SOLDERER, Elie Referring Unavailable Monique CAN SOLDERER, Elie Primary Care Unavailable Abbe Jackson Attending Unavailable Monique CAN SOLDERER, Elie Primary Care Unavailable Justice Burkettril Attending Unavailable Frances Escobedo Referring Unavailable Monique CAN SOLDERER, Elie Primary Care Unavailable Frances Escobedo Attending Unavailable Monique CAN SOLDERER, Elie Primary Care Unavailable Spittle, Florentino Referring Unavailable Spittle Florentino Attending Unavailable Monique CAN SOLDERER, Elie Primary Care Unavailable Frances Escobedo Referring Unavailable Frances Escobedo Attending Unavailable Monique CAN SOLDERER, Elie Primary Care Unavailable Jesus Bell Attending Unavailable Allergies Allergy Classification Reported Allergen(s) Allergy Type Date of Onset Reaction(s) Facility (20 sources) Seasonal allergy; Translations: [SEASONAL ALLERGIES] Allergy to substance 0 Other: See Comments [facility] (1 source) Environmental Allergies: Uncoded; Translations: [Environmental Allergies: Uncoded] Propensity to adverse reactions (disorder) 5 [facility] Repository Medications Current Medications Medication Drug Class(es) Dates Sig (Normalized) Sig (Original) Acetaminophen (18 sources) acetaminophen (T YLENOL ARTHRITIS ORAL) Take by mouth once daily. Active acetaminophen (T YLENOL ARTHRITIS ORAL) Take by mouth once daily. 0 Active Apple Cider Vinegar (2 sources) End: 07-29-2021 take 1 dose by mouth once daily APPLE CIDER VINEGAR ORAL Take 1 Dose by mouth once daily. gummy 0 07/29/2021 Discontinued (Course of therapy completed) take 1 dose by mouth once daily APPLE CIDER VINEGAR ORAL Take 1 Dose by mouth once daily. gummy 0 Active Comment on above: Take 1 Dose by mouth once daily. gummy azithromycin 250 mg oral tablet (1 source) Macrolide Antimicrobial Start: 12-01-2023 End: 12-06-2023 azithromycin (ZITHROMAX Z-SUE) 250 mg tablet Indications: Cough, unspecified type , Bronchitis Take 2 tablets day one, then, 1 tablet daily until gone. 6 tablet 12/01/2023 12/06/2023 Active benoxinate hydrochloride 4 mg/ml / fluorescein sodium 3 mg/ml ophthalmic solution (5 sources) Diagnostic Dye Start: 09-30-2024 End: 10-01-2024 fluorescein-benoxinate 0.3-0.4 % 1 drop (FLURESS) Start: 09-30-2024 End: 10-01-2024 1 drop, BOTH EYES, DIRECT ED, Starting on Mon09/30/24 at 1330, Until Mon10/01/24 at 0129, Administer for applanation tonometry. In the event of a Fluress shortage, administer Olga-Fluor 1 drop into both eyes as directed for applanation tonometry Start: 09-21-2023 End: 09-21-2023 fluorescein-benoxinate 0.3-0 .4 % 1 Drop (FLURESS) Start: 09-19-2022 End: 09-19-2022 fluorescein-benoxinate 0.25- 0.4 % 1 Drop (FLURESS) dulaglutide (TRULICITY) 3 mg/0.5 mL pen injector (15 sources) Start: 12-13-2022 End: 10-02-2023 inject 3 mg by subcutaneous injection every week dulaglutide (TRULICITY) 3 mg/0.5 mL pen injector Indications: Controlled type 2 diabetes mellitus without complication, without long-term current use of insulin (HCC) Inject 3 mg subcutaneously one time a week. 4 Each 12/13/2022 10/02/2023 Discontinued (Course of therapy completed) Start: 12-13-2022 inject 3 mg by subcu taneous injection every week dulaglutide (TRULICITY) 3 mg/0.5 mL pen injector Indications: Controlled type 2 diabetes mellitus without complication, without long-term current use of insulin (HCC) Inject 3 mg subcutaneously one time a week. 4 Each 12/13/2022 Active Comment on above: Inject 3 mg subcutan eously one time a week. fexofenadine / Pseudoephedri ne (20 sources) alpha-Adrenergic Agonist, Histamine-1 Receptor Antagonist fexofenadine/pseudoe p hedrine (MARU-D 12 HOUR ORAL) Take by mouth as needed. Active fexofenadine/pse udoephedrine (MARU-D 12 HOUR ORAL) Take by mouth as needed. 0 Active Comment on above: Take by mouth as nee ded. FLUoxetine 10 mg oral capsule (20 sources) Serotonin Reuptake Inhibitor Start: 02-02-2024 take 1 capsule by mouth once daily Fluoxetine 10 mg capsule Active 10 mg PO DAILY February 02, 2024 1:00am Complies with drug therapy Start: 10-02-2023 End: 11-06-2023 take 1 capsule by mouth once daily FLUoxetine (PROZAC) 10 mg capsule Indications: Anxiety with depression Take 1 capsule by mouth once daily. 90 capsule 3 11/06/2023 Active metFORMIN hydrochloride 1000 mg oral tablet (20 sources) Biguanide Start: 02-02-2021 End: 10-07-2025 take 1 tablet by mouth twice daily Metformin 1,000 mg tablet Active 1000 mg PO TWICE A DAY February 08, 2023 1:00am Complies with drug therapy Comment on above: Take 1 tablet by chapo twice daily with meals. Take 1 tablet by chapo th two times a day with meals. phenylephrine hydrochloride 25 mg/ml ophthalmic solution (5 sources) alpha-1 Adrenergic Agonist Start: 09-30-2024 End: 10-01-2024 PHENYLephrine 2.5 % 1 drop (AK-DILATE, ROSANNA-SYNEPHRINE) Start: 09-30-2024 End: 10-01-2024 1 drop, BOTH EYES, DIRECT ED, Starting on Mon09/30/24 at 1330, Until Mon10/01/24 at 0129, Administer for dilation PROTECT FROM LIGHT Start: 09-21-2023 End: 09-21-2023 PHENYLephrine 2.5 % 1 Drop ( AK-DILATE, ROSANNA-SYNEPHRINE) Start: 09-19-2022 End: 09-19-2022 PHENYLephrine 2.5 % 1 Drop ( AK-DILATE, ROSANNA-SYNEPHRINE) proparacaine hydrochloride 5 mg/ml ophthalmic solution (3 sources) Local Anesthetic Start: 09-30-2024 End: 10-01-2024 proparacaine 0.5 % 1 drop (ALCAINE) Start: 09-30-2024 End: 10-01-2024 1 drop, BOTH EYES, DIRECT ED, Starting on Mon09/30/24 at 1330, Until Mon10/01/24 at 0129, Administer for pneumo tonometry, tonopen tonometry, or pachymetry. In the event of a proparacaine shortage, administer tetracaine 0.5% ophthalmic drops 1 drop in the left eye as directed for pneumo tonometry, tonopen tonometry, or pachymetry Start: 09-21-2023 End: 09-21-2023 proparacaine 0.5 % 1 Drop (A LCAINE) semaglutide (OZEMPIC) 2 mg/dose (8 mg/3 mL) pen injector (20 sources) Start: 08-26-2024 inject 2 mg by subcutaneous injection every week semaglutide (OZEMPIC) 2 mg/dose (8 mg/3 mL) pen injector Indications: Controlled type 2 diabetes mellitus without complication, without long-term current use of insulin (HCC) Inject 2 mg subcutaneously one time a week. 3 mL 11 08/26/2024 Active Start: 10-02-2023 End: 08-26-2024 inject 2 mg by subcutaneous injection every week semaglutide (OZEMPIC) 2 mg/dose (8 mg/3 mL) pen injector Indications: Controlled type 2 diabetes mellitus without complication, without long-term current use of insulin (HCC) Inject 2 mg subcutaneously one time a week. 3 mL 5 10/02/2023 08/26/2024 Discontinued Start: 10-02-2023 inject 2 mg by subcu taneous injection every week semaglutide (OZEMPIC) 2 mg/dose (8 mg/3 mL) pen injector Indications: Controlled type 2 diabetes mellitus without complication, without long-term current use of insulin (HCC) Inject 2 mg subcutaneously one time a week. 3 mL 5 10/02/2023 Active Start: 09-01-2023 End: 10-02-2023 inject 2 mg by subcutaneous injection every week semaglutide (OZEMPIC) 2 mg/dose (8 mg/3 mL) pen injector Indications: Controlled type 2 diabetes mellitus without complication, without long-term current use of insulin (HCC) Inject 2 mg subcutaneously one time a week. 3 mL 5 09/01/2023 10/02/2023 Discontinued Start: 09-01-2023 inject 2 mg by subcu taneous injection every week semaglutide (OZEMPIC) 2 mg/dose (8 mg/3 mL) pen injector Indications: Controlled type 2 diabetes mellitus without complication, without long-term current use of insulin ([facility]) Inject 2 mg subcutaneously one time a week. 3 mL 5 09/01/2023 Active simvastatin 40 mg oral tablet (20 sources) HMG-CoA Reductase Inhibitor Start: 02-08-2023 End: 05-06-2024 take 1 tablet by mouth once daily Simvastatin 40 mg tablet Active 40 mg PO DAILY February 08, 2023 1:00am Complies with drug therapy Start: 02-02-2021 End: 09-12-2022 take 1 tablet by mouth once daily at bedtime simvastatin (ZOCOR) 40 mg tablet Indications: Controlled type 2 diabetes mellitus without complication, without long-term current use of insulin ([facility]) , Mixed hyperlipidemia Take 1 tablet by mouth daily at bedtime. 90 tablet 1 07/29/2021 03/10/2022 Discontinued Comment on above: Take 1 tablet by chapo th daily at bedtime. terbinafine 250 mg oral tablet (2 sources) Allylamine Antifungal Start: End: take 1 tablet by mouth once daily terbinafine HCl (LAMISIL) 250 mg tablet Indications: Fungal infection of nail Take 1 tablet by mouth once daily. 30 tablet 2 09/08/2021 12/07/2021 Active Start: 04-20-2021 End: 07-19-2021 take 1 tablet by mouth once daily terbinafine HCl (LAMISIL) 250 mg tablet Indications: Fungal infection of nail Take 1 tablet by mouth once daily. 30 tablet 2 04/20/2021 07/19/2021 Active Comment on above: Take 1 tablet by chapo th once daily. tropicamide 10 mg/ml ophthalmic solution (5 sources) Anticholinergic Start: 09-30-2024 End: 10-01-2024 tropicamide 1 % 1 drop (MYDRIACYL) Start: 09-30-2024 End: 10-01-2024 1 drop, BOTH EYES, DIRECT ED, Starting on Mon09/30/24 at 1330, Until Mon10/01/24 at 0129, Administer for dilation Start: 09-21-2023 End: 09-21-2023 tropicamide 1 % 1 Drop (MYDR IACYL) Start: 09-19-2022 End: 09-19-2022 tropicamide 1 % 1 Drop (MYDR IACYL) Completed/Discontinued Medications Medication Drug Class(es) Dates Sig (Normalized) Sig (Original) acetaminophen 325 mg / HYDROcodone bitartrate 5 mg oral tablet (4 sources) Opioid Agonist Start: 02-16-2023 End: 02-02-2024 Hydrocodone-Acetamino phen 5-325 mg Tablet Discontinued 1 {tbl} PO EVERY 6 HOURS NEEDED as needed for Pain Score 1-5 12 3 February 16, 2023 February 02, 2024 9:28am Other acute postprocedural pain Other acute postprocedural pain Start: 02-16-2023 take 1 tablet by chapo th every six hours as needed Hydrocodone-Acetaminophen Active 1 TABLE T PO EVERY 6 HOURS NEEDED 12 3 February 16, 2023 1 ml dexamethasone phosphate 4 mg/ml injection (1 source) Corticosteroid Start: 01-14-2022 End: 01-14-2022 dexAMETHasone sodium phosphate 8 mg injection (DECADRON) Start: 01-14-2022 End: 01-14-2022 dexAMETHasone sodium phospha te 8 mg injection (DECADRON) dicyclomine hydrochloride 10 mg oral capsule (2 sources) Anticholinergic Start: 02-02-2024 End: 12-05-2024 take 2 capsules by mouth three times daily before mealtime Dicyclomine 10 mg capsule Discontinued 20 mg PO THREE TIMES DAILY BEFORE MEALS 20 0 February 02, 2024 1:00am December 05, 2024 7:50am Dulaglutide (10 sources) GLP-1 Receptor Agonist Start: 02-08-2023 End: 02-02-2024 Dulaglutide (Trulicity) 3 mg/0.5 mL pen injector Discontinued 3 mg SC February 08, 2023 1:00am February 02, 2024 9:28am Start: 02-08-2023 Dulaglutide (T rulicity) 3 mg/0.5 mL pen injector Active 3 MG SC MO February 08, 2023 1:00am Start: 02-08-2023 Dulaglutide (T rulicity) 3 mg/0.5 mL pen injector Active 3 MG SC February 08, 2023 12:00am Start: 07-18-2022 End: 12-13-2022 dulaglutide (TRULICITY) 1.5 mg/0.5 mL pen injector Indications: Controlled type 2 diabetes mellitus without complication, without long-term current use of insulin (HCC) Inject 1.5 mg subcutaneously one time a week. Inject once per week. Discard Pen After 4 Each 09/13/2022 12/13/2022 Discontinued (Course of therapy completed) Start: 06-14-2022 inject 0.75 mg by alicia bcutaneous injection every week dulaglutide (TRULICITY) 0.75 mg/0.5 mL pen injector Indications: Controlled type 2 diabetes mellitus without complication, without long-term current use of insulin (HCC) Inject 0.75 mg subcutaneously one time a week. Inject dose once per week. Discard Pen After 4 Each 0 06/14/2022 Active Comment on above: Inject 0.75 mg subcu taneously one time a week. Inject dose once per week. Discard Pen After Inject 1.5 mg subcut aneously one time a week. Inject once per week. Discard Pen After 10 ml lidocaine hydrochloride 10 mg/ml injection (1 source) Antiarrhythmic, Amide Local Anesthetic Start: 01-14-2022 End: 01-14-2022 lidocaine (PF) 10 mg/mL (1 %) 1 mL injection (XYLOCAINE) Start: 01-14-2022 End: 01-14-2022 lidocaine (PF) 10 mg/mL (1 % ) 1 mL injection (XYLOCAINE) meloxicam 15 mg oral tablet (13 sources) Nonsteroidal Anti-inflammatory Drug Start: 12-14-2022 End: 12-05-2024 take 1 tablet by mouth once daily as needed for pain Meloxicam 15 mg tablet Discontinued 15 mg PO DAILY as needed for pain February 08, 2023 1:00am December 05, 2024 7:50am Start: 01-12-2022 End: 02-11-2022 take 1 tablet by mouth once daily at mealtime meloxicam (MOBIC) 15 mg tablet Indications: Chronic pain of left knee Take 1 tablet by mouth once daily. With food. 30 tablet 5 01/12/2022 02/11/2022 Active Comment on above: Take 1 tablet by chapo th once daily. With food. 1 ml methylPREDNISolone acetate 40 mg/ml injection (1 source) Corticosteroid Start: 01-15-20 End: 01-15-20 methylPREDNISolone acetate 40 mg injection (DEPO-Medrol) Start: 01-14-2022 End: 01-14-2022 methylPREDNISolone acetate 4 0 mg injection (DEPO-Medrol) ondansetron 4 mg disintegrating oral tablet (2 sources) Serotonin-3 Receptor Antagonist Start: 02-02-2024 End: 12-05-2024 take 1 tablet by mouth every eight hours as needed for nausea Ondansetron 4 mg tablet,disintegrating Discontinued 4 mg PO EVERY 8 HOURS NEEDED as needed for Nausea 10 February 02, 2024 1:00am December 05, 2024 7:51am Semaglutide (2 sources) Start: 02-02-2024 End: 12-05-2024 inject 2 mg by subcutaneous injection every week Semaglutide (Semaglutide 2 Mg/Dose (8 Mg/3 Ml) Subcutaneous Pen Injector) 2 mg/dose (8 mg/3 mL) pen injector Discontinued 2 mg SC EVERY WEEK February 02, 2024 1:00am December 05, 2024 7:51am Start: 02-02-2024 inject 2 mg by subcutaneous in jection every week Problems Active Problems Problem Classification Problem Date Documented Date Episodic/Chronic Acquired foot deformities (7 sources) Hammer toe; Translations: [Other hammer toe(s) (acquired), right foot] Onset: 09-05-2024 Chronic Adjustment disorders (1 source) Adjustment disorder with depressed mood; Translations: [Adjustment disorder with depressed mood] Chronic Anxiety disorders (5 sources) Mixed anxiety and depressive disorder; Translations: [Other specified anxiety disorders] Onset: 04-08-2024 10-02-2023 Chronic Blindness and vision defects (4 sources) Presbyopia; Translations: [Presbyopia] Onset: 09-30-2024 09-19-2022 Episodic Cataract (8 sources) Nuclear sclerosis; Translations: [Age-related nuclear cataract, bilateral] Onset: 09-30-2024 09-19-2022 Chronic Chronic obstructive pulmonary disease and bronchiectasis (1 source) Bronchitis; Translations: [Bronchitis, not specified as acute or chronic] 12-01-2023 Episodic Chronic ulcer of skin (2 sources) Non-pressure chronic ulcer of other part of left foot limited to breakdown of skin; Translations: [Ulcer of other part of foot] 01-03-2023 Chronic Diabetes mellitus with complications (4 sources) Disorder of nervous system due to type 2 diabetes mellitus; Translations: [Type 2 diabetes mellitus with other diabetic neurological complication] Onset: 07-16-2024 Chronic Diabetes mellitus without complication (20 sources) Type 2 diabetes mellitus without complication; Translations: [Type 2 diabetes mellitus without complications] Onset: 09-23-2019 09-23-2019 Chronic Disorders of lipid metabolism (20 sources) Mixed hyperlipidemia; Translations: [Mixed hyperlipidemia] Onset: 09-23-2019 09-23-2019 Chronic Hyperplasia of prostate (1 source) Large prostate ; Translations: [Benign prostatic hyperplasia without lower urinary tract symptoms] 02-08-2024 Chronic Joint disorders and dislocations; trauma-related (1 source) Old tear of medial meniscus; Translations: [Derangement of unspecified medial meniscus due to old tear or injury, left knee] Chronic Mycoses (4 sources) Onychomycosis; Translations: [Tinea unguium] Episodic Osteoarthritis (2 sources) Arthritis of knee; Translations: [Unilateral primary osteoarthritis, unspecified knee] Onset: 11-13-2024 Chronic Other aftercare (1 source) Post-discharge follow-up; Translations: [Encounter for follow-up examination after completed treatment for conditions other than malignant neoplasm] 02-08-2024 Episodic Other circulatory disease (1 source) Abnormal peripheral pulse; Translations: [Other specified symptoms and signs involving the circulatory and respiratory systems] Episodic Other circulatory disease (1 source) Other specified symptoms and signs involving the circulatory and respiratory systems; Translations: [Diminished pulses in lower extremity] Onset: 09-05-2024 Episodic Other disorders of stomach and duodenum (1 source) Upset stomach; Translations: [Functional dyspepsia] 02-08-2024 Episodic Other eye disorders (3 sources) Disorder of lacrimal gland; Translations: [Dry eye syndrome of bilateral lacrimal glands] 09-19-2022 Episodic Other eye disorders (1 source) Dry eye syndrome of bilateral lacrimal glands; Translations: [Dry eye syndrome of bilateral lacrimal glands] Onset: 09-30-2024 Episodic Other lower respiratory disease (1 source) Cough; Translations: [Cough, unspecified type] 12-01-2023 Episodic Other nervous system disorders (4 sources) Acute postoperative pain; Translations: [Other acute postprocedural pain] 02-16-2023 Episodic Other non-traumatic joint disorders (6 sources) Pain in left knee; Translations: [Pain in joint, lower leg] Episodic Other skin disorders (4 sources) Callosity between toes; Translations: [Corns and callosities] Episodic Spondylosis; intervertebral disc disorders; other back problems (2 sources) Lumbago; Translations: [Pain in right lumbar region of back] 02-10-2024 Episodic Unclassified (1 source) Established Patient Onset: 09-10-2024 Past or Other Problems Problem Classification Problem Date Documented Da te Episodic/Chronic Abdominal pain (4 sources) Flank pain; Translations: [Unspecified abdominal pain] Onset: 03-02-2024 02-08-2024 Episodic Other screening for suspected conditions (not mental disorders or infectious disease) (9 sources) Patient encounter status; Translations: [Encounter for screening for malignant neoplasm of colon] Onset: 02-08-2024 Episodic Other skin disorders (1 source) Corns and callosities; Translations: [Callus between toes] Onset: 07-16-2024 Episodic Results Test Name Value Interpretation Reference Range Facility Urgent Care Visit Reporton 1 Urgent Care Visit Report [facility] [address], [address] [place] [id number] OFFICE VISIT Date of Service: 12/05/24 MR#: [id number] Acct: [id number] Name: MARIELENA FARRELL Jr. Rep #: [id number] : 1960 Provider: MANJEET Vital Age/Sex: 64/M Location: [email or web address] Status: Signed Intake Vital Signs 02/02/24 08:01 12/05/24 07:54 Height 6 ft 1 in 6 ft 1 in Weight: 188 lb 6 oz BMI 24.8 BP 120/60 Position Sitting Respiration 20 H Pulse 124 H Temp 99.6 F H Temp Source Oral Pulse Oximetry (%) 97 Oxygen Delivery Method room air Intake Visit Reasons: COUGH, SINUS, BODY ACHES, HEADACHE Accompanied by: Self Allergies Environmental Allergies: Uncoded (seasonal) Allergy (Verified 12/05/24 07:50) Other Nurse's Note: Patient has cough, BA and DE [place] and sinus c/o that has been going on since Monday. Patient is also c/o of wheezing. [facility] Medical History (Updated 12/05/24 @ 08:42 by MANJEET Mariano) Loss of hearing Wears glasses Anxiety Arthritis Diabetes DVT (deep venous thrombosis) High cholesterol Injury of head and neck Dietary restriction Non-smoker Leg cramps History of deviated nasal septum Social History (Updated 12/05/24 @ 07:51 by Lori Brasher MA) Smoking Status: Never smoker alcohol intake: never HPI HPI Details: MARIELENA FARRELL, is a 64 M who presents to the office today for complaint of cough, congestion for the past 5 days. No fever, chills or sweats. No nausea, vomiting or diarrhea. No hemoptysis, shortness of breath or difficulty breathing. No other associated symptoms or alleviating/aggravating factors. ROS Const Constitutional: No other (6 system ROS completed with pertinent findings in the HPI otherwise normal.) Exam Const General: cooperative and well developed HENOR Head: normal to inspection and atraumatic Ears: hearing grossly normal bilaterally Nose: nasal discharge clear Face and sinus: normal facial exam Mouth: oral mucosae normal Throat: abnormal tonsil bilaterally hypertrophy 1+ Resp Effort Inspection: normal respiratory effort and no audible wheezes Auscultation: Bilateral: Clear to Auscultation Cardio Palpation: normal PMI Rate: regular rate Rhythm: regular rhythm Neuro General: patient alert and CN's II-XI intact bilaterally Psych Appearance: grossly normal Mental Status: mental status grossly normal Coding Level of Care Code Off vis,new,level 3 Diagnoses Acute bronchitis J20.9 Assessment and Plan Assessment and Plan (1) Acute bronchitis: Status: Acute Plan: Azithromycin as prescribed today. Encouraged to get plenty of rest, drink lots of clear liquids, and use Tylenol or Ibuprofen (unless contraindicated) for fever and comfort. Patient also educated on other symptomatic management techniques. To be seen in 7-10 days if no improvement; sooner if worsening of symptoms. Patient advised of potential red flags and when appropriate to report to the ED. Patient verbalized understanding and agreement with all the above. Medications: New azithromycin take 500 mg today (day 1), then 250 mg for 4 days (days 2-5) PO 6 tabs 0RF Discontinued dicyclomine Discontinued Reason: Pt no longer taking 20 mg (2 x 10 mg) PO TIDAC 20 CAPSULES 0RF ondansetron Discontinued Reason: Pt no longer taking 4 mg PO Q8H PRN PRN 10 tabs 0RF Nausea 12/05/24 0843 Date Abbe Bhandari Signature: Date (if applicable) CC: Normal [facility] OT D/C of Non Returning Pton 10-31-2024 OT D/C of Non Returning Pt [facility] [address] [place] [address] [address] [place] [address] / REHABILITATION SERVICES DISCHARGE SUMMARY MR#: [id number] Acct: [id number] Name: MARIELENA FARRELL Jr. Rep #: [id number] : 1960 64 From: Cece Almonte OTR/L, CHT Referring Dr.: MANJEET Ochoa Status: REG RCR Eval Date: Discharge Date: Patient Information Patient Information: MARIELENA FARRELL Jr. was seen in my office for initial evaluation on 04/15/24. The following Plan of Care was established for this patient: POC Established Initial Frequency: 2-3x /Week Initial Duration: 2 Months Plan: week 11 gentle strengthening no hyperextension at MP joint Anticipated Interventions Anticipated Interventions: A/AAROM/PROM, Strengthening, Scar Care, Triggerpoint Release, Desensitization, Modalities, Orthoses, Joint Protection/Energy Conservation, Ergonomic Education, Education re assistive Equipment, Education re Diagnosis and Home Program Last Seen Last Seen: This patient was last seen in our office 06/04/24. Pertinent comments regarding their Occupational therapy will appear below: No further apts have been scheduled. Due to time lapse in service pt is d/c. At this point I will be discontinuing this patient from occupational therapy. I would be happy to see this patient again in the future if found appropriate by the physician. Thank you! Cece Almonte, ANISHAR/L, CHT 10/31/24 0954 CC: KRISTOPHER Amaya; MANJEET Ochoa MK Signed Normal [facility] ALBUMIN/CREATININE RATIO, UR JAMALon 10-07-2024 Albumin DL <= 20 mg/L (U) [Mass/Vol] mg/dL Normal [facility] Comment on above: Order Comment: Speci men Type: URINE SPECIMENOrdering Facility: [facility] Address: [address] [place] [address] Performed By: #### U ACR ####[facility] LABCLIA [id number] [place] [address] [place] Albumin/Creatinine (U) [Mass ratio] <7 Normal <30 [facility] Comment on above: Order Comment: Speci men Type: URINE SPECIMENOrdering Facility: [facility] Address: [address] [place] [address] Result Comment: Adul t Male and Female Nephrotic Criteria: <30 mg/g is considered normal to mildly increased 30-300 mg/g is considered moderately increased >300 mg/g is considered severely increased KDIGO. (2013). KDIGO 2012 Clinical Practice Guideline for the Evaluation and Management of Chronic Kidney Disease. Official Journal of the International Society of Nephrology, 3(1), 1-150. Performed By: #### U ACR ####[facility] LABCLIA [id number] [place] [address] [place] Creatinine (U) [Mass/Vol] 168.1 mg/dL Normal 20.0-300.0 [facility] Comment on above: Order Comment: Speci men Type: URINE SPECIMENOrdering Facility: [facility] Address: [address] [place] [address] Performed By: #### U ACR ####[facility] LABCLIA [id number] [place] [address] [place] CBC W Auto Differential pane l (Bld)on 10-07-2024 Basophils (Bld) [#/Vol] 0.04 10*3/uL Normal <0.11 [facility] Comment on above: Order Comment: Speci men Type: BLOOD SPECIMENOrdering Facility: [facility] Address: [address] [place] [address] Performed By: #### 5 7021-8 ####[facility] LABCLIA [id number] [facility] [place] [address] [place] Basophils/100 WBC (Bld) 0.5 % Normal [facility] Comment on above: Order Comment: Speci men Type: BLOOD SPECIMENOrdering Facility: [facility] Address: [address] [place] [address] Performed By: #### 5 7021-8 ####[facility] LABCLIA [id number] [facility] [address] [place] Differential cell count method Nom (Bld) Auto Normal [facility] Comment on above: Order Comment: Speci men Type: BLOOD SPECIMENOrdering Facility: [facility] Address: [address] [place] [address] Performed By: #### 5 7021-8 ####[facility] LABCLIA [id number] [place] [address] [place] Eosinophils (Bld) [#/Vol] 0.17 10*3/uL Normal <0.46 [facility] Comment on above: Order Comment: Speci men Type: BLOOD SPECIMENOrdering Facility: [facility] Address: [address] [place] [address] Performed By: #### 5 7021-8 ####[facility] LABCLIA [id number] [place] [address] [place] Eosinophils/100 WBC (Bld) 2.1 % Normal [facility] Comment on above: Order Comment: Speci men Type: BLOOD SPECIMENOrdering Facility: [facility] Address: [address] [place], [place] [address] Performed By: #### 5 7021-8 ####[facility] LABCLIA [id number] [address] [place] [address] [place] Erythrocyte distribution width (RBC) [Ratio] 11.9 % Normal 11.5-15.0 [facility] Comment on above: Order Comment: Speci men Type: BLOOD SPECIMENOrdering Facility: [facility] Address: [address] [place] [address] Performed By: #### 5 7021-8 ####[facility] LABCLIA [id number] [address], [facility]95 [place] Hematocrit (Bld) [Volume fraction] 42.5 % Normal 39.0-51.0 [facility] Comment on above: Order Comment: Speci men Type: BLOOD SPECIMENOrdering Facility: [facility] Address: [address] [place] [address] Performed By: #### 5 7021-8 ####[facility] LABIA [id number] [address], [facility]95 [place] Hemoglobin (Bld) [Mass/Vol] 14.5 g/dL Normal 13.0-17.0 [facility] Comment on above: Order Comment: Speci men Type: BLOOD SPECIMENOrdering Facility: [facility] Address: [address] [place] [address] Performed By: #### 5 7021-8 ####[facility] LABCLIA [id number] [facility] [address] [place] [address] [place] Immature granulocytes (Bld) [#/Vol] 10*3/uL Normal <0.10 [facility] Comment on above: Order Comment: Speci men Type: BLOOD SPECIMENOrdering Facility: [facility] Address: [address] [place] [address] Performed By: #### 5 7021-8 ####[facility] LABIA [id number] [place] [address] [place] Immature granulocytes/100 WBC (Bld) 0.1 % Normal [facility] Comment on above: Order Comment: Speci men Type: BLOOD SPECIMENOrdering Facility: [facility] Address: [address] [place] [address] Performed By: #### 5 7021-8 ####[facility] LABCLIA [id number] [place] [address] [place] Lymphocytes (Bld) [#/Vol] 1.65 10*3/uL Normal 1.00-4.00 [facility] Comment on above: Order Comment: Speci men Type: BLOOD SPECIMENOrdering Facility: [facility] Address: [address] [place] [address] Performed By: #### 5 7021-8 ####[facility] LABCLIA [id number] [place] [address] [place] Lymphocytes/100 WBC (Bld) 20.7 % Normal [facility] Comment on above: Order Comment: Speci men Type: BLOOD SPECIMENOrdering Facility: [facility] Address: [address] [place] [address] Performed By: #### 5 7021-8 ####[facility] LABCLIA [id number] [place] [address] [place] MCH (RBC) [Entitic mass] 30.3 pg Normal 26.0-34.0 [facility] Comment on above: Order Comment: Speci men Type: BLOOD SPECIMENOrdering Facility: [facility] Address: [address] [place] [address] Performed By: #### 5 7021-8 ####[facility] LABCLIA [id number] [place] [address] [place] MCHC (RBC) [Mass/Vol] 34.1 g/dL Normal 30.5-36.0 [facility] Comment on above: Order Comment: Speci men Type: BLOOD SPECIMENOrdering Facility: [facility] Address: [address] [place] [address] Performed By: #### 5 7021-8 ####[facility] LABCLIA [id number] [place] [address] [place] MCV (RBC) [Entitic vol] 88.7 fL Normal 80.0-100.0 [facility] Comment on above: Order Comment: Speci men Type: BLOOD SPECIMENOrdering Facility: [facility] Address: [address] [place] [address] Performed By: #### 5 7021-8 ####[facility] LABIA [id number] [place] [address] [place] Monocytes (Bld) [#/Vol] 0.61 10*3/uL Normal <0.87 [facility] Comment on above: Order Comment: Speci men Type: BLOOD SPECIMENOrdering Facility: [facility] Address: [address] [place] [address] Performed By: #### 5 7021-8 ####[facility] LABIA [id number] [place] [address] [place] Monocytes/100 WBC (Bld) 7.7 % Normal [facility] Comment on above: Order Comment: Speci men Type: BLOOD SPECIMENOrdering Facility: [facility] Address: [address] [place] [address] Performed By: #### 5 7021-8 ####[facility] LABCLIA [id number] [place] [address] [place] Neutrophils (Bld) [#/Vol] 5.49 10*3/uL Normal 1.45-7.50 [facility] Comment on above: Order Comment: Speci men Type: BLOOD SPECIMENOrdering Facility: [facility] Address: [address] [place] [address] Performed By: #### 5 7021-8 ####[facility] LABCLIA [id number] [address] [place] [address] [place] Neutrophils/100 WBC (Bld) 68.9 % Normal [facility] Comment on above: Order Comment: Speci men Type: BLOOD SPECIMENOrdering Facility: [facility] Address: [address] [place] [address] Performed By: #### 5 7021-8 ####[facility] LABCLIA [id number] [address], [place] [address] [place] Nucleated RBC (Bld) [#/Vol] 10*3/uL Normal <0.01 [facility] Comment on above: Order Comment: Speci men Type: BLOOD SPECIMENOrdering Facility: [facility] Address: [address] [place] [address] Performed By: #### 5 7021-8 ####[facility] LABCLIA [id number] [address], [place] [address] [place] Nucleated RBC/100 WBC (Bld) [Ratio] 0.0 /100 WBC Normal [facility] Comment on above: Order Comment: Speci men Type: BLOOD SPECIMENOrdering Facility: [facility] Address: [address] [place] [address] Performed By: #### 5 7021-8 ####[facility] LABCLIA [id number] [address], [place] [address] [place] Platelet mean volume (Bld) [Entitic vol] 10.6 fL Normal 9.0-12.7 [facility] Comment on above: Order Comment: Speci men Type: BLOOD SPECIMENOrdering Facility: [facility] Address: [address] [place] [address] Performed By: #### 5 7021-8 ####[facility] LABCLIA [id number] [address] [place] [address] [place] Platelets (Bld) [#/Vol] 227 10*3/uL Normal 150-400 [facility] Comment on above: Order Comment: Speci men Type: BLOOD SPECIMENOrdering Facility: [facility] Address: [address] [place] [address] Performed By: #### 5 7021-8 ####[facility] [id number] [place] [address] [place] RBC (Bld) [#/Vol] 4.79 10*6/uL Normal 4.20-6.00 [facility] Comment on above: Order Comment: Speci men Type: BLOOD SPECIMENOrdering Facility: [facility] Address: [address] [place] [address] Performed By: #### 5 7021-8 ####[facility] LABIA [id number] [place] [address] [place] WBC (Bld) [#/Vol] 7.97 10*3/uL Normal 3.70-11.00 [facility] Comment on above: Order Comment: Speci men Type: BLOOD SPECIMENOrdering Facility: [facility] Address: [address] [place] [address] Performed By: #### 5 7021-8 ####[facility] LABIA [id number] [place] [address] [place] CNOVon 10-07-2024 CNOV Office Visit (DONALDWS ) MARIELENA FARRELL ([id number]) 1960 M Date Time Provider Department 10/07/24 7:00 AM ELIE AMAYA During your visit today, we recorded the following information about you: Pulse Respiration Blood pressure Weight 81/minute 16/minute 117/75 84 kg Elie Amaya, EULOGIO.GIS ADMINISTRATOR 10/07/2024 7:11 AM Signed Chief Complaint Patient presents with: F/U 6 months HPI Marielena Farrell is a 64 year old male who presents here today for above reason. Senthil Farrell is a 64-year-old male with a history of T2DM, HLD, and depression, presenting for a 6-month follow-up. Senthil reports a 15-16 lb weight loss since his last visit in March, which he attributes to a decreased appetite secondary to his current medications, metformin and semaglutide. He denies any concerns about the weight loss and feels fine, noting increased activity levels. He is currently on the maximum dose of semaglutide and also takes simvastatin 40 mg for cholesterol and Prozac 10 mg for depression, both of which are well-tolerated. He requests a refill of metformin. He does not monitor his glucose levels at home, relying on laboratory tests for management. He denies chest pain, dyspnea, fevers, chills, syncope, or neuropathy in his feet. He has previously declined the pneumonia vaccine and wishes to postpone it for another year. He is currently under the care of Dr. Bello for hemorrhoids and is considering surgery. Past medical history, appointments, medications, allergies reviewed. EXAM: BP 117/75 Pulse 81 Resp 16 Wt 84 kg (185 lb 3.2 oz) SpO2 95% BMI 24.43 kg/m? General Appearance: Well appearing, alert, in no acute distress, well-hydrated, well nourished.. Heart: RRR without murmur, gallop, or rubs. No ectopy. Lungs: Lungs clear to auscultation, No wheezing, rales or rhonchi Assessment and Plan 1. Controlled type 2 diabetes mellitus without complication, without long-term current use of insulin (HCC) (E11.9) Clinically stable on metformin and semaglutide. Recent weight loss of approximately 15-16 lbs since last visit in March, likely due to medication effects and increased activity. Last HbA1c was 7.3%. - Ordered HbA1c, CBC, and CMP to assess current glycemic control, hematologic status, and renal and hepatic function. - Refilled metformin prescription; sent to [facility] pharmacy. - Follow-up in 6 months. 2. Mixed hyperlipidemia (E78.2) Clinically stable on simvastatin 40 mg daily. - Ordered lipid panel to assess current lipid levels. 3. Anxiety with depression (F41.8) Clinically stable on fluoxetine 10 mg daily. - Continue current fluoxetine regimen. Elie Amaya APRN.CNP RTO in 6 months, sooner if needed. This note was partly generated using Enikoson voice recognition dictation and may contain some misspelled or inaccurate words missed on review. Recording using TrepUp software for draft documentation of the visit was discussed with the patient/authorized labor representative; all questions welcomed and answered. Patient/authorized labor representative agreed to proceed Elie Amaya APRN.CNP 10/07/2024 7:11 AM Addendum We discussed your weight loss: - You have lost approximately 15-16 pounds since your last visit in March. This is likely due to your medications and your active lifestyle. - Metformin has a weight-neutral effect, and semaglutide (Ozempic) at the maximum dose is a strong appetite suppressant, which can contribute to weight loss. - Continue your current medications and maintain your active lifestyle and healthy diet. We discussed your medications: - Continue taking Metformin, Simvastatin 40 mg, and Prozac 10 mg as prescribed. - A refill for Metformin has been sent to your preferred [facility] pharmacy. - You reported that Prozac is working well for you, and no changes are needed at this time. We discussed your lab work: - Blood work was ordered today, including a cholesterol panel, hemoglobin A1c, complete blood count (CBC), and metabolic profile, to monitor your overall health and medication effects. - If you are able to complete the lab work today, I will review the results and send you a message through Spime. We discussed your health maintenance: - Your hemoglobin A1c was previously 7.3, which indicates good control of your diabetes. Based on your weight loss and medication adherence, I anticipate it may have improved further. - You declined the pneumonia vaccine today and opted to postpone it for another year. We discussed your symptoms: - You reported no chest pain, shortness of breath, fevers, chills, fainting, or neuropathy symptoms such as numbness or tingling in your feet. No further evaluation is needed at this time. We discussed your follow-up care: - I will continue to be your provider, but I will be transitioning to work with Dr. Ribera (more content not included)... Normal [facility] metabolic 2000 panelon 08-11-2025 Albumin [Mass/Vol] 4.2 g/dL Normal 3.9-4.9 [facility] Comment on above: Order Comment: Speci men Type: BLOOD SPECIMENOrdering Facility: [facility] Address: [address] [place] [address] Performed By: #### 2 4323-8, 80604-2 ####[facility] LABCLIA [id number] [place] [id number] [place] ALP [Catalytic activity/Vol] 67 U/L Normal 38-113 [facility] Comment on above: Order Comment: Speci men Type: BLOOD SPECIMENOrdering Facility: [facility] Address: [address] [place] [address] Performed By: #### 2 4323-8, 70009-1 ####[facility] LABCLIA [id number] [place] [address] [place] ALT [Catalytic activity/Vol] 18 U/L Normal 10-54 [facility] Comment on above: Order Comment: Speci men Type: BLOOD SPECIMENOrdering Facility: [facility] Address: [address] [place] [address] Performed By: #### 2 4323-8, 08410-5 ####[facility] LABCLIA [id number] [place] [id number] [place] Anion gap [Moles/Vol] 13 mmol/L Normal 8-15 [facility] Comment on above: Order Comment: Speci men Type: BLOOD SPECIMENOrdering Facility: [facility] Address: [address] [place] [address] Performed By: #### 2 4323-8, 93390-3 ####[facility] LABCLIA [id number] [address] [address] [place] AST [Catalytic activity/Vol] 16 U/L Normal 14-40 [facility] Comment on above: Order Comment: Speci men Type: BLOOD SPECIMENOrdering Facility: [facility] Address: [address] [place] [id number] Performed By: #### 2 4323-8, 05631-8 ####[facility] LABCLIA [id number] [place] [address] [place] Bilirubin [Mass/Vol] 0.6 mg/dL Normal 0.2-1.3 [facility] Comment on above: Order Comment: Speci men Type: BLOOD SPECIMENOrdering Facility: [facility] Address: [address] [place] [address] Performed By: #### 2 4323-8, 38312-3 ####[facility] LABCLIA [id number] [place] [address] [place] Calcium [Mass/Vol] 9.5 mg/dL Normal 8.5-10.2 [facility] Comment on above: Order Comment: Speci men Type: BLOOD SPECIMENOrdering Facility: [facility] Address: [address] [place] [address] Performed By: #### 2 4323-8, 45379-4 ####[facility] LABIA [id number] [place] [address] [place] Chloride [Moles/Vol] 101 mmol/L Normal 98-107 [facility] Comment on above: Order Comment: Speci men Type: BLOOD SPECIMENOrdering Facility: [facility] Address: [address] [place], [place] [address] Performed By: #### 2 4323-8, 02967-1 ####[facility] LABCLIA [id number] [place] [id number] [place] CO2 [Moles/Vol] 24 mmol/L Normal 22-30 [facility] Comment on above: Order Comment: Speci men Type: BLOOD SPECIMENOrdering Facility: [facility] Address: [address] [place], [place] [address] Performed By: #### 2 4323-8, 27620-9 ####[facility] LABCLIA [id number] [address] [address] [place] Creatinine [Mass/Vol] 0.98 mg/dL Normal 0.73-1.22 [facility] Comment on above: Order Comment: Tremaine agrawal Type: BLOOD SPECIMENOrdering Facility: [facility] Address: [address] [place] [address] Performed By: #### 2 4323-8, ####[facility] LABIA [id number] [address] [address] [place] eGFRcr SerPlBld CKD-EPI 2020 87 mL/min/1.73m??? Normal >=60 [facility] Comment on above: Order Comment: Tremaine agrawal Type: BLOOD SPECIMENOrdering Facility: [facility] Address: [address] [place] [address] Result Comment: Jose Angel mated Glomerular Filtration Rate (eGFR) is calculated using the 2020 CKD-EPI creatinine equation. This equation utilizes serum creatinine, sex, and age as parameters. The creatinine assay has traceable calibration to isotope dilution-mass spectrometry. Refer to KDIGO guidelines for clinical interpretation. In patients with unstable renal function, e.g. those with acute kidney injury, the eGFR may not accurately reflect actual GFR. Performed By: #### 2 4323-8, ####[facility] LABIA [id number] [address] [address] [place] Glucose [Mass/Vol] 128 mg/dL High 74-99 [facility] Comment on above: Order Comment: Tremaine agrawal Type: BLOOD SPECIMENOrdering Facility: [facility] Address: [address] [place] [address] Result Comment: The [place] Diabetes Association (ADA) provides guidance for cutoff values for fasting glucose and random glucose. The ADA defines fasting as no caloric intake for at least 8 hours. Fasting plasma glucose results between 100 to 125 mg/dL indicate increased risk for diabetes (prediabetes). Fasting plasma glucose results greater than or equal to 126 mg/dL meet the criteria for diagnosis of diabetes. In the absence of unequivocal hyperglycemia, results should be confirmed by repeat testing. In a patient with classic symptoms of hyperglycemia or hyperglycemic crisis, random plasma glucose results greater than or equal to 200 mg/dL meet the criteria for diagnosis of diabetes. Reference: Standards of Medical Care in Diabetes 2016, [place] Diabetes Association. Diabetes Care. 2016.39(Suppl 1). Performed By: #### 2 4323-8, 62692-3 ####[facility] LABCLIA [id number] [facility] [address] [address] [place] Potassium [Moles/Vol] 4.4 mmol/L Normal 3.7-5.1 [facility] Comment on above: Order Comment: Claudiai men Type: BLOOD SPECIMENOrdering Facility: [facility] Address: [address] [place] [address] Performed By: #### 2 4323-8, 36569-9 ####[facility] LABCLIA [id number] [place] [id number] [place] Protein [Mass/Vol] 6.8 g/dL Normal 6.3-8.0 [facility] Comment on above: Order Comment: Claudiai nghia Type: BLOOD SPECIMENOrdering Facility: [facility] Address: [address] [place] [address] Performed By: #### 2 4323-8, 60067-9 ####[facility] LABCLIA [id number] [facility] [address] [address] [place] Sodium [Moles/Vol] 138 mmol/L Normal 136-144 [facility] Comment on above: Order Comment: Speci men Type: BLOOD SPECIMENOrdering Facility: [facility] Address: [address] [place] [address] Performed By: #### 2 4323-8, 79717-1 ####[facility] LABCLIA [id number] [facility] [address] [place] [address] [place] Urea nitrogen [Mass/Vol] 18 mg/dL Normal 9-24 [facility] Comment on above: Order Comment: Tremaine agrawal Type: BLOOD SPECIMENOrdering Facility: [facility] Address: [address] [place] [address] Performed By: #### 2 4323-8, 54724-0 ####[facility] LABCLIA [id number] [facility] [address] [place] HbA1c (Bld)on 10-07-2024 Average glucose Estimated from glycated hemoglobin (Bld) [Mass/Vol] 143 mg/dL Normal [facility] Comment on above: Order Comment: Tremaine agrawal Type: BLOOD SPECIMENOrdering Facility: [facility] Address: [address] [place] [address] Result Comment: eAG: (Estimated average glucose) is a calculated value from HgbA1c and is labor representative of the average blood glucose level in the last 2-3 month period. Performed By: #### 5 5454-3 ####[facility] LABCLIA [id number] [address] [place] HbA1c (Bld) [Mass fraction] 6.6 % High 4.3-5.6 [facility] Comment on above: Order Comment: Tremiane nghia Type: BLOOD SPECIMENOrdering Facility: [facility] Address: [address] [place] [address] Result Comment: Amer ican Diabetes Association guidelines indicate that patients with HgbA1c in the range 5.7-6.4% are at increased risk for development of diabetes, and intervention by lifestyle modification may be beneficial. HgbA1c greater or equal to 6.5% is considered diagnostic of diabetes. Performed By: #### 5 5454-3 ####[facility] LABCLIA [id number] [place] [address] [facility] Lipid 1996 panelon 5 Cholesterol [Mass/Vol] 139 mg/dL Normal <200 [facility] Comment on above: Order Comment: Tremaine nghia Type: BLOOD SPECIMENOrdering Facility: [facility] Address: [address] [place] [address] Result Comment: <200 mg/dL, Desirable 200-239 mg/dL, Borderline high >239 mg/dL, High Performed By: #### 2 4323-8, 42995-2 ####[facility] LABCLIA [id number] [address] [address] [place] Cholesterol in HDL [Mass/Vol] 38 mg/dL Low >39 [facility] Comment on above: Order Comment: Claudiai men Type: BLOOD SPECIMENOrdering Facility: [facility] Address: [address] [place] [address] Result Comment: 40-5 9 mg/dL, Acceptable >59 mg/dL, High: Negative risk factor for coronary heart disease <40 mg/dL, Low: Positive risk factor for coronary heart disease Performed By: #### 2 4323-8, 15982-9 ####[facility] LABCLIA [id number] [address] [place] Cholesterol in LDL [Mass/Vol] 77 mg/dL Normal <100 [facility] Comment on above: Order Comment: Tremaine agrawal Type: BLOOD SPECIMENOrdering Facility: [facility] Address: [address] [place] [address] Result Comment: <100 mg/dL, Optimal 100-129 mg/dL, Near optimal/above optimal 130-159 mg/dL, Borderline high 160-189 mg/dL, High >189 mg/dL, Very high Secondary prevention optimal LDL Cholesterol levels are recommended to be <70 mg/dL LDL cholesterol is calculated using the Tian-NIH equation. Performed By: #### 2 4323-8, 61920-1 ####[facility] LABCLIA [id number] [place] [id number] [place] Cholesterol in LDL/Cholesterol in HDL [Mass ratio] 2.03 {ratio} Normal <2.54 [facility] Comment on above: Order Comment: Claudiai men Type: BLOOD SPECIMENOrdering Facility: [facility] Address: [address] [place] [address] Result Comment: Refe urbanoce: 1. National Cholesterol Education Program ATP III Guideline At-A-Glance Quick Desk Reference: National Heart, Lung, and Blood [place]. National Institutes of Health. 2001: NIH Publication No. 01-3305. 2. An International Atherosclerosis Society position paper: global recommendations for the management of dyslipidemia: executive summary, Atherosclerosis. 2014: 232(2):410-413. Performed By: #### 2 4323-8, 18345-0 ####[facility] LABCLIA [id number] [address] [address] [place] Cholesterol in VLDL [Mass/Vol] 20 mg/dL Normal <30 [facility] Comment on above: Order Comment: Speci men Type: BLOOD SPECIMENOrdering Facility: [facility] Address: [address] [place] [address] Performed By: #### 2 4328, ####[facility] LABCLIA [id number] [place] [address] [place] Cholesterol non HDL [Mass/Vol] 101 mg/dL Normal <130 [facility] Comment on above: Order Comment: Speci men Type: BLOOD SPECIMENOrdering Facility: [facility] Address: [address] [place] [address] Result Comment: <130 mg/dL, Optimal 130-159 mg/dL, Near optimal/above optimal 160-189 mg/dL, Borderline high 190-219 mg/dL, High >219 mg/dL, Very high Secondary prevention optimal non HDL Cholesterol levels are recommended to be <100 mg/dL Performed By: #### 2 4322-09, ####[facility] LABCLIA [id number] [address] [address] [place] Cholesterol.total/Ch olesterol in HDL [Mass ratio] 3.66 {ratio} Normal <5.10 [facility] Comment on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 L503.6005, L100.0100, L500.4050 #### [facility] [address] [place], [address] Platelet mean volume (Bld) [Entitic vol] 9.7 fL Normal 6.2-12.0 [facility] Comment on above: Performed By: #### L 501.2450, L503.6005, L100.0100, L500.4050 #### [facility] [address] [place], [address] Platelets (Bld) [#/Vol] 227 10*3/uL Normal 150-450 [facility] Comment on above: Performed By: #### L 501.2450, L503.6005, L100.0100, L500.4050 #### [facility] [address] [place], [address] RBC (Bld) [#/Vol] 5.10 10*6/uL Normal 4.6-6.2 [facility] Comment on above: Performed By: #### L 501.2450, L503.6005, L100.0100, L500.4050 #### [facility] [address] [place], [address] RDW SD 37.8 fl Normal 35.1-43.9 [facility] Comment on above: Performed By: #### L 501.2450, L503.6005, L100.0100, L500.4050 #### [facility] [address] [place], [address] WBC (Bld) [#/Vol] 8.6 10*3/uL Normal 4.4-11.0 [facility] Comment on above: Performed By: #### L 501.2450, L503.6005, L100.0100, L500.4050 #### [facility] [address] [place], [address] Comprehensive Metabolic Prof idon 02-02-2024 Albumin [Mass/Vol] 3.9 g/dL Normal 3.2-5.0 [facility] Comment on above: Performed By: #### L 501.2450, L503.6005, L100.0100, L500.4050 #### [facility] [address] [place], [address] Albumin/Globulin [Mass ratio] 1.0 {ratio} Normal 0.9-2.4 [facility] Comment on above: Performed By: #### L 501.2450, L503.6005, L100.0100, L500.4050 #### [facility] [address] [place], [address] ALK P 95 U/L Normal 45-117 [facility] Comment on above: Performed By: #### L 501.2450, L503.6005, L100.0100, L500.4050 #### [facility] [address] [place], [address] ALT [Catalytic activity/Vol] 25 U/L Normal 16-61 [facility] Comment on above: Performed By: #### L 501.2450, L503.6005, L100.0100, L500.4050 #### [facility] [address] [place], [address] AST [Catalytic activity/Vol] 19 U/L Normal 15-37 [facility] Comment on above: Performed By: #### L 501.2450, L503.6005, L100.0100, L500.4050 #### [facility] [address] [place], [address] Bilirubin [Mass/Vol] 0.80 mg/dL Normal 0.20-1.00 [facility] Comment on above: Result Comment: For patients on eltrombopag therapy, use of Dimension [place] TBIL is not recommended. Performed By: #### L 501.2450, L503.6005, L100.0100, L500.4050 #### [facility] [address] [place], [address] BUN/CRE 17.1 RATIO Normal 10-20 [facility] Comment on above: Performed By: #### L 501.2450, L503.6005, L100.0100, L500.4050 #### [facility] [address] [place], [address] CA,Total 9.6 mg/dL Normal 8.5-10.1 [facility] Comment on above: Performed By: #### L 501.2450, L503.6005, L100.0100, L500.4050 #### [facility] [address] [place], [address] Chloride [Moles/Vol] 102 mmol/L Normal 98-107 [facility] Comment on above: Performed By: #### L 501.2450, L503.6005, L100.0100, L500.4050 #### [facility] [address] [place], [address] CO2 [Moles/Vol] 26.0 mmol/L Normal 21.0-32.0 [facility] Comment on above: Performed By: #### L 501.2450, L503.6005, L100.0100, L500.4050 #### [facility] [address] [place], [address] Creatinine [Mass/Vol] 1.05 mg/dL Normal 0.70-1.30 [facility] Comment on above: Result Comment: The validity of the calculated GFR GFRAA in patients over 70 years has not been determined. Clinical correlation is essential. Performed By: #### L 501.2450, L503.6005, L100.0100, L500.4050 #### [facility] [address] [place], [address] ECRCL 83.49 ml/min Normal [facility] Comment on above: Performed By: #### L 501.2450, L503.6005, L100.0100, L500.4050 #### [facility] [address] [place], [address] EST GFR - AA 92 mL/min Normal >60 [facility] Comment on above: Result Comment: Afri can Cymro GFR Calc Performed By: #### L 501.2450, L503.6005, L100.0100, L500.4050 #### [facility] [address] [place], [address] GAP 8 Normal 5-15 [facility] Comment on above: Performed By: #### L 501.2450, L503.6005, L100.0100, L500.4050 #### [facility] [address] [place], [address] GFR/1.73 sq M.predicted among non-blacks MDRD (S/P/Bld) [Vol rate/Area] 76 mL/min/{1.73_m2} Normal >60 [facility] Comment on above: Result Comment: Non- GFR Calc Performed By: #### L 501.2450, L503.6005, L100.0100, L500.4050 #### [facility] [address] [place], [address] Globulin (S) [Mass/Vol] 3.8 g/dL Normal 2.2-4.2 [facility] Comment on above: Performed By: #### L 501.2450, L503.6005, L100.0100, L500.4050 #### [facility] [address] [place], [address] Glucose [Mass/Vol] 233 mg/dL High 74-106 [facility] Comment on above: Result Comment: Gluc ose result greater than or equal to 200 mg/dL suggests DIABETES MELLITUS per A.D.A. criteria. Performed By: #### L 501.2450, L503.6005, L100.0100, L500.4050 #### [facility] [address] [place], [address] Potassium [Moles/Vol] 4.4 mmol/L Normal 3.5-5.1 [facility] Comment on above: Performed By: #### L 501.2450, L503.6005, L100.0100, L500.4050 #### [facility] [address] [place], [address] Sodium [Moles/Vol] 136 mmol/L Normal 136-145 [facility] Comment on above: Performed By: #### L 501.2450, L503.6005, L100.0100, L500.4050 #### [facility] [address] [place], [address] T PROT 7.7 g/dL Normal 6.4-8.2 [facility] Comment on above: Performed By: #### L 501.2450, L503.6005, L100.0100, L500.4050 #### [facility] [address] [place], [address] Urea nitrogen [Mass/Vol] 18 mg/dL Normal 7-18 [facility] Comment on above: Performed By: #### L 501.2450, L503.6005, L100.0100, L500.4050 #### [facility] [address] [place], [address] Emergency Department Summary on 02-02-2024 Emergency Department Summary [facility] Medical Records Department [address] [place] [address] Emergency Department Summary 02/02/24 MR#: [id number] Acct: [id number] Name: MARIELENA FARRELL Rep #: [id number] : 1960 63 From: Jesus Bell DO PCP: KRISTOPHER Madrigal Status:DEP ER Location: ED HPI History of Present Illness Chief Complaint: Flank Pain Narrative Narrative: Patient is a 63-year-old male who is presenting to the ER with chief complaint of nausea, vomiting, right flank pain. Patient is at bedside. Patient started having right lower back and right flank pain yesterday at 1 PM. Patient left work. Patient's pain was intermittent last evening with intensity. Patient said he was able to sleep, but when he woke up this morning he was having more right lower back pain and right flank pain. Patient has no fever or chills. No chest pain or shortness of breath. He still has his gallbladder and appendix. Patient had no difficulty urinating last evening or today. Patient is a recent heavy lifting twisting or turning. No recent trauma. No radiation of pain down into his right leg. Patient has no history of kidney stone. No other acute complaints. Patient did have 2 loose stools earlier this morning. [facility] Medical History (Updated 02/02/24 @ 13:[address] Jesus Bell, DO) Loss of hearing Wears glasses Anxiety Arthritis Diabetes DVT (deep venous thrombosis) High cholesterol Injury of head and neck Dietary restriction Non-smoker Leg cramps History of deviated nasal septum Home Medications ???Medication ???Instructions ???Recorded ???Last Taken ???Type meloxicam 15 mg tablet 15 mg PO DAILY PRN pain 02/08/23 Unknown History metformin 1,000 mg tablet 1,000 mg PO BID 02/08/23 Unknown History simvastatin 40 mg tablet 40 mg PO DAILY 02/08/23 Unknown History dicyclomine 10 mg capsule 20 mg (2 x 10 mg) PO TIDAC #20 02/02/24 Unknown Rx CAPSULES fluoxetine 10 mg capsule 10 mg PO DAILY 02/02/24 Unknown History ondansetron 4 mg disintegrating 4 mg PO Q8H PRN PRN Nausea #10 tabs 02/02/24 Unknown Rx tablet semaglutide 2 mg/dose (8 mg/3 mL) 2 mg subcut QWEEK 02/02/24 Unknown History subcutaneous pen injector (Ozempic) Allergy/AdvReac Type Severity Reaction Status Date / Time No Known Allergies Allergy Verified 02/02/24 08:27 Social History Smoking Status: Never smoker ROS ROS ED ROS Narrative REVIEW OF SYSTEMS: Unless otherwise stated in this report the patient's positive and negative responses for review of systems for constitutional, eyes, ENT, cardiovascular, respiratory, gastrointestinal, neurological, , musculoskeletal, and integument systems and related systems to the presenting problem are either stated in the history of present illness or were not pertinent or were negative for the symptoms and/or complaints related to the presenting medical problem. EXAM Physical Exam Narrative Exam Narrative: Vital signs reviewed and patient is not hypoxic. General: The patient appears moderate distress secondary to pain and discomfort, patient is holding his right flank. Patient is resting uncomfortably on cart. Not toxic, lethargic, or listless. Skin: Clammy; not diaphoretic, dry, no pallor noted. There is no rash noted. Head: Normocephalic, atraumatic Eye: Normal conjunctiva, no drainage, EOMI. PERRL. Ears, Nose, Mouth, and Throat: oral mucosa is moist. Nares patent. Mouth without vesicles. Poor dentition, no secondary signs of infection. Cardiovascular: Regular Rate and Rhythm, no murmurs, gallops, or rubs Respiratory: Patient is in no distress, no accessory muscle use, lungs are clear to auscultation, no wheezing, rales or rhonchi Back: non-tender, right CVA tenderness to palpation moderate, no left CVA tenderness palpation. Mild to moderate right flank pain, no left flank pain. No right lower quadrant tenderness to palpation, no suprapubic tenderness to palpation. NO CTLS midline or paraspinal tenderness to palpation. GI: Soft, no tenderness to palpation, no masses appreciated. No rebound, guarding, or rigidity noted. Musculoskeletal: The patient has full range of motion of all extremities and joints with no difficulty. Patient has no motor, no sensory deficits. Neurological: A O x4, normal speech, no focal neurological deficits. Psychiatric: Cooperative Const Vital Signs: 02/02/24 08:01 02/02/24 08:30 02/02/24 09:13 Temperature 98.6 F 98.6 F 97.5 F L Temperature Source Temporal Oral Oral Pulse Rate 80 80 68 Respiratory Rate 20 H 20 H 15 Blood Pressure 130/75 H 130/75 H 109/63 Blood Pressure Mean 93 93 78 Pulse Ox 100 100 100 Oxygen Delivery Method Room Air Room Air Room Air 02/02/24 10:07 02/02/24 11:35 02/02/24 12:28 Temperature 97.5 F L 98.1 F Temperature (more content not included)... Normal [facility] Lactic Acidon 02-02-2024 Lactate [Moles/Vol] 2.2 mmol/L Invalid Interpretation Code 0.4-1.9 [facility] Comment on above: Order Comment: Y Result Comment: Crit ical Result(s) Called at: 09:01:58 02/02/2024 by: Shannon Fowler.. Results read back by same. Performed By: #### L 501.2450, L503.6005, L100.0100, L500.4050 #### [facility] [address] [place], [address] Lipaseon 02-02-2024 Lipase [Catalytic activity/Vol] 51 U/L Normal 13-75 [facility] Comment on above: Result Comment: Plea se note: LIPASE revised reference range effective 22. New Lipase methodology. Expected to produce lower values than the previous assay method. NEW Reference Range: 13 - 75 U/L Performed By: #### L 501.2450, L503.6005, L100.0100, L500.4050 #### [facility] [address] [place], [address] Urinalysis, Completeon 02-01 WBC 5-10 SEEN Normal 0-5 [facility] Comment on above: Order Comment: CLEAN CATCH Performed By: #### L 400.0001 #### [facility] [address] [place], [address] BILIRUBIN URINE Negative Normal Negative [facility] Comment on above: Order Comment: CLEAN CATCH Performed By: #### L 400.0001 #### [facility] [address] [place], [address] Clarity (U) Clear Normal Clear [facility] Comment on above: Order Comment: CLEAN CATCH Performed By: #### L 400.0001 #### [facility] [address] [place], [address] Color (U) Straw Normal Yellow [facility] Comment on above: Order Comment: CLEAN CATCH Performed By: #### L 400.0001 #### [facility] [address] [place], [address] GLUCOSE, UR Normal Normal Normal [facility] Comment on above: Order Comment: CLEAN CATCH Performed By: #### L 400.0001 #### [facility] [address] [place], [address] KETONE UR 50 mg/dl Abnormal Negative [facility] Comment on above: Order Comment: CLEAN CATCH Performed By: #### L 400.0001 #### [facility] [address] [place], [address] LEUK ESTERASE 25 /ul Abnormal Negative [facility] Comment on above: Order Comment: CLEAN CATCH Performed By: #### L 400.0001 #### [facility] [address] [place] [place], [address] Nitrite Ql (U) Negative Normal Negative [facility] Comment on above: Order Comment: CLEAN CATCH Performed By: #### L 400.0001 #### [facility] [address] [place], [place], [facility] OCCULT BLOOD-UR Negative Normal Negative [facility] Comment on above: Order Comment: CLEAN CATCH Performed By: #### L 400.0001 #### [facility] [address] [place], [address] pH UR 8.0 Normal 5.0 - 8.0 [facility] Comment on above: Order Comment: CLEAN CATCH Performed By: #### L 400.0001 #### [facility] [address] [place], [address] PROT DIPSTX 30 mg/dl Abnormal Negative [facility] Comment on above: Order Comment: CLEAN CATCH Performed By: #### L 400.0001 #### [facility] [address] [place], [address] SP.GR. DIPSTX 1.010 Normal 1.002-1.030 [facility] Comment on above: Order Comment: CLEAN CATCH Performed By: #### L 400.0001 #### [facility] [address] [place], [address] UROBILI Normal Normal Normal [facility] Comment on above: Order Comment: CLEAN CATCH Performed By: #### L 400.0001 #### [facility] [address] [place], [address] BACTERIA 0 SEEN Normal None Seen [facility] Comment on above: Order Comment: CLEAN CATCH Performed By: #### L 400.0001 #### [facility] [address] [place], [address] EPI,SQUAMOUS 0 SEEN Normal 0-5 [facility] Comment on above: Order Comment: CLEAN CATCH Performed By: #### L 400.0001 #### [facility] [address] [place], [address] Mucus Ql (Urine sed) 0 SEEN Normal [facility] Comment on above: Order Comment: CLEAN CATCH Performed By: #### L 400.0001 #### [facility] [address] [place], [address] RBC 0 SEEN Normal 0-5 [facility] Comment on above: Order Comment: CLEAN CATCH Performed By: #### L 400.0001 #### [facility] [address] [place], [address] Glucose Glucometer (BldC) [M ass/Vol]Ordered By: Florentino Schneider on 02-16-2023 Glucose [Mass/Vol] 137 mg/dL 74-106 [facility] Comment on above: MANAGEMENT OF PATIEN T CARE PER NURSING PROTOCOL Absolute lymphocyte countOrd ered By: Florentino Schneider on 02-08-2023 Lymphocytes Auto (Unsp spec) [#/Vol] 1.77 10*3/uL 0.83-4.51 [facility] Basophil percentageOrdered B y: Florentino Schneider on 02-08-2023 Basophils/100 WBC (Bld) 0.5 % 0-1 [facility] Eosinophils/100 WBC (Bld) 1.0 % 0-5 [facility] Neutrophils (Bld) [#/Vol] 7.9 10*3/uL 2.0-7.7 [facility] Neutrophils/100 WBC (Bld) 75.7 % 47-70 [facility] WBC (Bld) [#/Vol] 10.4 10*3/uL 4.4-11.0 [facility] Blood erythrocytes count (nu mber/volume)Ordered By: Florentino Schneider on 02-08-2023 RBC (Bld) [#/Vol] 4.98 10*6/uL 4.6-6.2 [facility] Blood hemoglobin measurement (mass/volume)Ordered By: Flornetino Schneider on 02-08-2023 Hemoglobin (Bld) [Mass/Vol] 14.7 g/dL 13.0-16.5 [facility] Blood lymphocytes/100 leukoc ytesOrdered By: Florentino Schneider on 02-08-2023 Lymphocytes/100 WBC (Bld) 17.0 % 19-41 [facility] Blood monocytes/100 leukocyt esOrdered By: Florentino Schneider on 02-08-2023 Monocytes/100 WBC (Bld) 5.4 % 0-10 [facility] Blood platelet mean volumeOr dered By: Florentino Schneider on 02-08-2023 Platelet mean volume (Bld) [Entitic vol] 10.2 fL 6.2-12.0 [facility] Determination of erythrocyte mean corpuscular volume (MCV)Ordered By: Florentino Schneider on 02-08-2023 MCV (RBC) [Entitic vol] 90.2 fL 80-94 [facility] Hematocrit Auto (Bld) [Volum e fraction]Ordered By: Florentino Schneider on 02-08-2023 Hematocrit (Bld) [Volume fraction] 44.9 % 40-54 [facility] Laboratory - Hematology and Cell countsOrdered By: Florentino Schneider on 02-08-2023 Erythrocyte distribution width (RBC) [Entitic vol] 39.5 fL 35.1-43.9 [facility] Erythrocyte distribution width (RBC) [Ratio] 12.0 % 11.6-14.6 [facility] Immature granulocytes/100 WBC (Bld) 0.400 % 0.0-0.9 [facility] Comment on above: IG% - Immature Granu locytes (promyelocytes, myelocytes and metamyelocytes) > 1% indicates that a LEFT SHIFT is Present. MCH (RBC) [Entitic mass] 29.5 pg 27.0-32.0 [facility] Nucleated RBC/100 WBC (Bld) [Ratio] 0 % 0-5 [facility] MCHC Auto (RBC) [Mass/Vol]Or dered By: Florentino Schneider on 02-08-2023 MCHC (RBC) [Mass/Vol] 32.7 g/dL 32-36 [facility] Platelets bldOrdered By: Caleb Schneider on 02-08-2023 Platelets (Bld) [#/Vol] 235 10*3/uL 150-450 [facility] XR Knee - left 4 Viewson IMPRESSION: Findings are suggestive of degenerative changes in the left knee. [facility] Transcribe Date/Time: Jan 07 2022 8:43A Dictated by : ARYA REYES MD This examination was interpreted and the report reviewed and electronically signed by: ARYA REYES MD on Jan 07 2022 8:47AM [facility] DIVISION OF RADIOLOGY * * *Final Report* * * DATE OF EXAM: Jan 07 2022 8:19AM WOX [id number] - XR KNEE 4V AP/PA BOTH+LAT/HILLARY LT / PROCEDURE REASON: multiple diagnoses * * * * Physician Interpretation * * * * EXAM TITLE: XR KNEE 4V AP/PA BOTH+LAT/HILLARY LT EXAM DATE/TIME: 01/07/2022 8:19 AM COMPARISON: None. CLINICAL INDICATION/HISTORY: Knee pain. TECHNIQUE: AP/PA, lateral and sunrise views of the left knee are presented. FINDINGS: No acute fractures or subluxations are noted. Questionable mild medial compartmental joint space narrowing. There are tricompartmental bony spurs. Tibial tubercle fragmentation seen on lateral view. There is no evidence of joint effusion. The mineralization of the bones is normal. There is no significant soft tissue swelling. DIVISION OF RADIOLOGY Provider, Jose Dunham - 01/07/2022 * * *Final Report* * * DATE OF EXAM: Jan 07 2022 8:19AM WOX [id number] - XR KNEE 4V AP/PA BOTH+LAT/HILLARY LT / PROCEDURE REASON: multiple diagnoses * * * * Physician Interpretation * * * * EXAM TITLE: XR KNEE 4V AP/PA BOTH+LAT/HILLARY LT EXAM DATE/TIME: 01/07/2022 8:19 AM COMPARISON: None. CLINICAL INDICATION/HISTORY: Knee pain. TECHNIQUE: AP/PA, lateral and sunrise views of the left knee are presented. FINDINGS: No acute fractures or subluxations are noted. Questionable mild medial compartmental joint space narrowing. There are tricompartmental bony spurs. Tibial tubercle fragmentation seen on lateral view. There is no evidence of joint effusion. The mineralization of the bones is normal. There is no significant soft tissue swelling. IMPRESSION IMPRESSION: Findings are suggestive of degenerative changes in the left knee. Exhauster: RUTH Transcribe Date/Time: Jan 07 2022 8:43A Dictated by : ARYA REYES MD This examination was interpreted and the report reviewed and electronically signed by: ARYA REYES MD on Jan 07 2022 8:47AM EST [facility] Radiology Study observation (narrative) [facility] XR Knee - left 4 ViewsOrdere d By: [facility] Provider on 01-07-2022 [facility] Large Joint Arthro/Inj: L kn ee joint [facility] Vital Signs Date Time Vital Sign Value Performing Clinician Facility 12-05-2024 07:54-0400 Body height 185.42 cm Elie Amaya NP-C Work Phone: [facility] 12-05-2024 07:54-0400 Body mass index (BMI) [Ratio] 24.8 kg/m2 Elie Amaya CAN SOLDERER-C Work Phone: [facility] 12-05-2024 07:54-0400 Body temperature 99.6 [degF] Elie Amaya CAN SOLDERER-C Work Phone: [facility] 12-05-2024 07:54-0400 Body weight 85.44 kg Elie Amaya NP-C Work Phone: [facility] 12-05-2024 07:54-0400 Diastolic blood pressure 60 mm[Hg] Elie Monique CAN SOLDERER-C Work Phone: [facility] 12-05-2024 07:54-0400 Heart rate 124 /min Elie Monique CAN SOLDERER-C Work Phone: [facility] 12-05-2024 07:54-0400 Respiratory rate 20 /min Elie Monique CAN SOLDERER-C Work Phone: [facility] 12-05-2024 07:54-0400 SaO2% (BldA) [Mass fraction] 97 % Elie Monique CAN SOLDERER-C Work Phone: [facility] 12-05-2024 07:54-0400 Systolic blood pressure 120 mm[Hg] Elie Monique CAN SOLDERER-C Work Phone: [facility] 10-07-2024 06:56-0400 Body mass index (BMI) [Ratio] 24.43 kg/m2 Elie Monique LOAN CLOSER.GIS ADMINISTRATOR Work Phone: [facility] 10-07-2024 06:56-0400 Body weight 84.01 kg Elie Monique LOAN CLOSER.GIS ADMINISTRATOR Work Phone: [facility] 10-07-2024 06:56-0400 Diastolic blood pressure 75 mm[Hg] Elie Monique LOAN CLOSER.GIS ADMINISTRATOR Work Phone: [facility] 10-07-2024 06:56-0400 Heart rate 81 /min Elie Monique LOAN CLOSER.GIS ADMINISTRATOR Work Phone: [facility] 10-07-2024 06:56-0400 Respiratory rate 16 /min Elie Monique LOAN CLOSER.GIS ADMINISTRATOR Work Phone: [facility] 10-07-2024 06:56-0400 SaO2% (BldA) [Mass fraction] 95 % Elie Monique LOAN CLOSER.GIS ADMINISTRATOR Work Phone: [facility] 10-07-2024 06:56-0400 Systolic blood pressure 117 mm[Hg] Elie Monique LOAN CLOSER.GIS ADMINISTRATOR Work Phone: [facility] 04-08-2024 06:58-0500 Body mass index (BMI) [Ratio] 26.25 kg/m2 Elie Monique LOAN CLOSER.GIS ADMINISTRATOR Work Phone: [facility] 04-08-2024 06:58-0500 Body weight 90.27 kg Elie Monique LOAN CLOSER.GIS ADMINISTRATOR Work Phone: [facility] 04-08-2024 06:58-0500 Diastolic blood pressure 68 mm[Hg] Elie Monique LOAN CLOSER.GIS ADMINISTRATOR Work Phone: [facility] 04-08-2024 06:58-0500 Heart rate 75 /min Elie Monique LOAN CLOSER.GIS ADMINISTRATOR Work Phone: [facility] 04-08-2024 06:58-0500 Respiratory rate 16 /min Elie Monique LOAN CLOSER.GIS ADMINISTRATOR Work Phone: [facility] 04-08-2024 06:58-0500 SaO2% (BldA) [Mass fraction] 97 % Elie Monique LOAN CLOSER.GIS ADMINISTRATOR Work Phone: [facility] 04-08-2024 06:58-0500 Systolic blood pressure 110 mm[Hg] Elie Monique LOAN CLOSER.GIS ADMINISTRATOR Work Phone: [facility] 02-08-2024 14:51-0500 Body mass index (BMI) [Ratio] 26.21 kg/m2 Ching Leonard MD Work Phone: [facility] 02-08-2024 14:51-0500 Body weight 90.1 kg Ching Leonard MD Work Phone: [facility] 02-08-2024 14:51-0500 Diastolic blood pressure 66 mm[Hg] Ching Leonard MD Work Phone: [facility] 02-08-2024 14:51-0500 Heart rate 88 /min Ching Leonard MD Work Phone: [facility] 02-08-2024 14:51-0500 Respiratory rate 16 /min Ching Leonard MD Work Phone: [facility] 02-08-2024 14:51-0500 Systolic blood pressure 120 mm[Hg] Ching Leonard MD Work Phone: [facility] 12-01-2023 11:43-0400 Body mass index (BMI) [Ratio] 25.51 kg/m2 Ching Leonard MD Work Phone: [facility] 12-01-2023 11:43-0400 Body weight 87.7 kg Ching Leonard MD Work Phone: [facility] 12-01-2023 11:43-0400 Diastolic blood pressure 64 mm[Hg] Ching Leonard MD Work Phone: [facility] 12-01-2023 11:43-0400 Heart rate 76 /min Ching Leonard MD Work Phone: [facility] 12-01-2023 11:43-0400 Respiratory rate 18 /min Ching Leonard MD Work Phone: [facility] 12-01-2023 11:43-0400 Systolic blood pressure 102 mm[Hg] Ching Leonard MD Work Phone: [facility] 11-06-2023 07:28-0400 Body mass index (BMI) [Ratio] 25.8 kg/m2 Elie Monique LOAN CLOSER.GIS ADMINISTRATOR Work Phone: [facility] 11-06-2023 07:28-0400 Body weight 88.7 kg Elie Monique LOAN CLOSER.GIS ADMINISTRATOR Work Phone: [facility] 11-06-2023 07:28-0400 Diastolic blood pressure 70 mm[Hg] Elie Monique LOAN CLOSER.GIS ADMINISTRATOR Work Phone: [facility] 11-06-2023 07:28-0400 Heart rate 73 /min Elie Monique LOAN CLOSER.GIS ADMINISTRATOR Work Phone: [facility] 11-06-2023 07:28-0400 Respiratory rate 16 /min Elie Monique LOAN CLOSER.GIS ADMINISTRATOR Work Phone: [facility] 11-06-2023 07:28-0400 SaO2% (BldA) [Mass fraction] 99 % Elie Monique LOAN CLOSER.GIS ADMINISTRATOR Work Phone: [facility] 11-06-2023 07:28-0400 Systolic blood pressure 100 mm[Hg] Elie Monique LOAN CLOSER.GIS ADMINISTRATOR Work Phone: [facility] 10-02-2023 07:35-0400 Body mass index (BMI) [Ratio] 25.6 kg/m2 Elie Monique LOAN CLOSER.GIS ADMINISTRATOR Work Phone: [facility] 10-02-2023 07:35-0400 Body weight 88 kg Elie Amaya LOAN CLOSER.GIS ADMINISTRATOR Work Phone: [facility] 10-02-2023 07:35-0400 Diastolic blood pressure 60 mm[Hg] Elie Monique LOAN CLOSER.GIS ADMINISTRATOR Work Phone: [facility] 10-02-2023 07:35-0400 Heart rate 73 /min Elie Monique LOAN CLOSER.GIS ADMINISTRATOR Work Phone: [facility] 10-02-2023 07:35-0400 Respiratory rate 16 /min Elie Monique LOAN CLOSER.GIS ADMINISTRATOR Work Phone: [facility] 10-02-2023 07:35-0400 SaO2% (BldA) [Mass fraction] 98 % Elie Amaya LOAN CLOSER.GIS ADMINISTRATOR Work Phone: [facility] 10-02-2023 07:35-0400 Systolic blood pressure 106 mm[Hg] Elie Monique LOAN CLOSER.GIS ADMINISTRATOR Work Phone: [facility] 02-16-2023 11:45-0500 Body temperature 97.3 [degF] CAN SOLDERER-C Elie Monique CAN SOLDERER Work Phone: [facility] 02-16-2023 11:45-0500 Diastolic blood pressure 65 mm[Hg] CAN SOLDERER-C Elie Monique CAN SOLDERER Work Phone: [facility] 02-16-2023 11:45-0500 Heart rate 62 /min CAN SOLDERER-C Elie Monique CAN SOLDERER Work Phone: [facility] 02-16-2023 11:45-0500 Respiratory rate 16 /min CAN SOLDERER-C Elie Monique CAN SOLDERER Work Phone: [facility] 02-16-2023 11:45-0500 SaO2% (BldA) [Mass fraction] 95 % CAN SOLDERER-C Elie Estrellail CAN SOLDERER Work Phone: [facility] 02-16-2023 11:45-0500 Systolic blood pressure 126 mm[Hg] CAN SOLDERER-C Elie Monique CAN SOLDERER Work Phone: [facility] 02-16-2023 09:06-0500 Body height 182.88 cm CAN SOLDERER-C Elie Estrellail CAN SOLDERER Work Phone: [facility] 02-16-2023 09:06-0500 Body mass index (BMI) [Ratio] 26.4 kg/m2 CAN SOLDERER-C Elie Estrellail CAN SOLDERER Work Phone: [facility] 02-16-2023 09:06-0500 Body weight 88.6 kg CAN SOLDERER-C Elie Monique CAN SOLDERER Work Phone: [facility] 09-12-2022 07:04-0400 Body temperature 96.8 [degF] Elie Monique LOAN CLOSER.GIS ADMINISTRATOR Work Phone: [facility] 09-12-2022 07:04-0400 Body weight 89.54 kg Elie Monique LOAN CLOSER.GIS ADMINISTRATOR Work Phone: [facility] 09-12-2022 07:04-0400 Diastolic blood pressure 71 mm[Hg] Elie Monique LOAN CLOSER.GIS ADMINISTRATOR Work Phone: [facility] 09-12-2022 07:04-0400 Heart rate 80 /min Elie Monique LOAN CLOSER.GIS ADMINISTRATOR Work Phone: [facility] 09-12-2022 07:04-0400 Respiratory rate 16 /min Elie Monique LOAN CLOSER.GIS ADMINISTRATOR Work Phone: [facility] 09-12-2022 07:04-0400 SaO2% (BldA) [Mass fraction] 97 % Elie Monique LOAN CLOSER.GIS ADMINISTRATOR Work Phone: [facility] 09-12-2022 07:04-0400 Systolic blood pressure 114 mm[Hg] Elie Monique LOAN CLOSER.GIS ADMINISTRATOR Work Phone: [facility] 06-13-2022 06:56-0400 Body temperature 97.11 [degF] Elie Monique LOAN CLOSER.GIS ADMINISTRATOR Work Phone: [facility] 06-13-2022 06:56-0400 Body weight 92.08 kg Elie Monique LOAN CLOSER.GIS ADMINISTRATOR Work Phone: [facility] 06-13-2022 06:56-0400 Diastolic blood pressure 74 mm[Hg] Elie Monique LOAN CLOSER.GIS ADMINISTRATOR Work Phone: [facility] 06-13-2022 06:56-0400 Heart rate 75 /min Elie Monique LOAN CLOSER.GIS ADMINISTRATOR Work Phone: [facility] 06-13-2022 06:56-0400 Respiratory rate 16 /min Elie Monique LOAN CLOSER.GIS ADMINISTRATOR Work Phone: [facility] 06-13-2022 06:56-0400 SaO2% (BldA) [Mass fraction] 98 % Elie Monique LOAN CLOSER.GIS ADMINISTRATOR Work Phone: [facility] 06-13-2022 06:56-0400 Systolic blood pressure 121 mm[Hg] Elie Monique LOAN CLOSER.GIS ADMINISTRATOR Work Phone: [facility] 04-13-2022 13:04-0500 Body weight 92.99 kg Alicia Raymondf LOAN CLOSER.GIS ADMINISTRATOR Work Phone: [facility] 04-13-2022 13:04-0500 Diastolic blood pressure 76 mm[Hg] Aliciadeclan Carpenterhof LOAN CLOSER.GIS ADMINISTRATOR Work Phone: [facility] 04-13-2022 13:04-0500 Heart rate 82 /min Alicia Carpenterhof LOAN CLOSER.GIS ADMINISTRATOR Work Phone: [facility] 04-13-2022 13:04-0500 Respiratory rate 16 /min Alicia Tannhof LOAN CLOSER.GIS ADMINISTRATOR Work Phone: [facility] 04-13-2022 13:04-0500 SaO2% (BldA) [Mass fraction] 97 % Alicia Tannhof LOAN CLOSER.GIS ADMINISTRATOR Work Phone: [facility] 04-13-2022 13:04-0500 Systolic blood pressure 118 mm[Hg] Alicia Tannhof LOAN CLOSER.GIS ADMINISTRATOR Work Phone: [facility] 01-14-2022 08:36-0500 Body height 185.4 cm Santiago Adams MD Work Phone: [facility] 01-14-2022 08:36-0500 Body weight 92.99 kg Santiago Adams MD Work Phone: [facility] 01-12-2022 07:06-0500 Body weight 92.99 kg Alicia Tannhof LOAN CLOSER.GIS ADMINISTRATOR Work Phone: [facility] 01-12-2022 07:06-0500 Diastolic blood pressure 84 mm[Hg] Alicia Tannhof LOAN CLOSER.GIS ADMINISTRATOR Work Phone: [facility] 01-12-2022 07:06-0500 Heart rate 85 /min Alicia Tannhof LOAN CLOSER.GIS ADMINISTRATOR Work Phone: [facility] 01-12-2022 07:06-0500 Respiratory rate 16 /min Alicia Tannhof LOAN CLOSER.GIS ADMINISTRATOR Work Phone: [facility] 01-12-2022 07:06-0500 SaO2% (BldA) [Mass fraction] 98 % Alicia Tannhof LOAN CLOSER.GIS ADMINISTRATOR Work Phone: [facility] 01-12-2022 07:06-0500 Systolic blood pressure 126 mm[Hg] Alicia Tannhof LOAN CLOSER.GIS ADMINISTRATOR Work Phone: [facility] 12-13-2021 07:08-0400 Body temperature 97.5 [degF] Elie Monique LOAN CLOSER.GIS ADMINISTRATOR Work Phone: [facility] 12-13-2021 07:08-0400 Body weight 91.72 kg Elie Monique LOAN CLOSER.GIS ADMINISTRATOR Work Phone: [facility] 12-13-2021 07:08-0400 Diastolic blood pressure 68 mm[Hg] Elie Monique LOAN CLOSER.GIS ADMINISTRATOR Work Phone: [facility] 12-13-2021 07:08-0400 Heart rate 80 /min Elie Monique LOAN CLOSER.GIS ADMINISTRATOR Work Phone: [facility] 12-13-2021 07:08-0400 Respiratory rate 16 /min Elie Monique LOAN CLOSER.GIS ADMINISTRATOR Work Phone: [facility] 12-13-2021 07:08-0400 Systolic blood pressure 110 mm[Hg] Elie Monique LOAN CLOSER.GIS ADMINISTRATOR Work Phone: [facility] 09-08-2021 17:01-0400 Body weight 91.08 kg Ching Leonard MD Work Phone: [facility] 09-08-2021 17:01-0400 Diastolic blood pressure 64 mm[Hg] Ching Leonard MD Work Phone: [facility] 09-08-2021 17:01-0400 Heart rate 72 /min Ching Leonard MD Work Phone: [facility] 09-08-2021 17:01-0400 Respiratory rate 16 /min Ching Leonard MD Work Phone: [facility] 09-08-2021 17:01-0400 Systolic blood pressure 126 mm[Hg] Ching Leonard MD Work Phone: [facility] 07-29-2021 07:02-0400 Body temperature 98.01 [degF] Jakob Dang APRN.GIS ADMINISTRATOR, DNP Work Phone: [facility] 07-29-2021 07:02-0400 Body weight 88.91 kg Jakob Dang LOAN CLOSER.GIS ADMINISTRATOR, DNP Work Phone: [facility] 07-29-2021 07:02-0400 Diastolic blood pressure 74 mm[Hg] Jakob Dang APRN.ONEIDA, DNP Work Phone: [facility] 07-29-2021 07:02-0400 Heart rate 79 /min Jakob Dang APRN.CNP, DNP Work Phone: [facility] 07-29-2021 07:02-0400 Respiratory rate 14 /min Jakob Dang APRN.ONEIDA, DNP Work Phone: [facility] 07-29-2021 07:02-0400 SaO2% (BldA) [Mass fraction] 99 % Jakob Dang APRN.CNP, USHA Work Phone: [facility] 07-29-2021 07:02-0400 Systolic blood pressure 122 mm[Hg] Jakob Dang APRN.ONEIDA, USHA Work Phone: [facility] Encounters Encounter Date Encounter Type Care Provider Facility Start: 12-05-2024 End: 12-05-2024 Patient encounter procedure [facility] Work Phone: Start: 12-05-2024 End: 12-05-2024 ambulatory Elie SUMMERS Work Phone: [facility] Start: 10-08-2024 End: 10-08-2024 ambulatory Elie Amaya APRN.CNP Work Phone: [facility] Comment on above: Lab Results Start: 10-08-2024 End: 10-08-2024 E-mail encounter from caregiver Elie Amaya APRN.CNP Work Phone: [facility] [place] Start: 10-07-2024 End: 10-07-2024 Office outpatient visit 25 minutes Elie Amaya APRN.CNP Work Phone: [facility] Comment on above: Controlled type 2 di abetes mellitus without complication, without long-term current use of insulin (HCC) (Primary Dx); Mixed hyperlipidemia; Anxiety with depression Start: 10-07-2024 End: 10-07-2024 ambulatory ELIE AMAYA Facility:[facility] Start: 09-30-2024 End: 09-30-2024 Patient encounter procedure Lazarus Hdz OD Work Phone: Ophthalmology Comment on above: Type 2 diabetes ekta itus without retinopathy (HCC) (Primary Dx); Nuclear sclerosis of both eyes; Cortical age-related cataract, bilateral; Dry eye syndrome of bilateral lacrimal glands; Presbyopia Start: 09-30-2024 End: 09-30-2024 ambulatory LAZARUS HDZ Facility:[facility] Start: 09-23-2024 ambulatory LAZARUS HDZ Facilit y:[facility] Start: 09-10-2024 End: 09-10-2024 Patient encounter procedure Adrian Leahy Work Phone: Podiatry Comment on above: Hammertoe of left fo ot (Primary Dx); Callus between toes Start: 09-10-2024 End: 09-10-2024 ambulatory ADRIAN LEAHY Facility:[facility] Start: 09-05-2024 End: 09-05-2024 ambulatory ADRIAN LEAHY Facility:[facility] Start: 08-28-2024 End: 08-28-2024 Telephone encounter Ching Leonard MD Work Phone: [facility] [place] Comment on above: Insurance Authorizat ion Start: 08-26-2024 End: 08-26-2024 Refill Ching Leonard MD Work Phone: [address] [place] [address] Comment on above: Refill Request Start: 07-18-2024 End: 09-17-2024 Follow-up encounter Adrian Leahy Work Phone: Podiatry Start: 07-16-2024 ambulatory ADRIAN LEAHY Facili ty:[facility] Start: 07-16-2024 End: 07-16-2024 ambulatory ADRIAN LEAHY Facility:[facility] Start: 06-04-2024 End: 06-04-2024 ambulatory Elie Amaya NP Facility:[facility] Start: 05-06-2024 End: 05-06-2024 Refill Ching Leonard MD Work Phone: [facility] Comment on above: Refill Request Start: 04-09-2024 End: 04-09-2024 ambulatory Elie Amaya APRN.CNP Work Phone: [facility] Start: 04-09-2024 End: 04-09-2024 E-mail encounter from caregiver Elie Estrellamartha BUSTILLOSGIS ADMINISTRATOR Work Phone: [facility] Start: 04-09-2024 End: 06-09-2024 Follow-up encounter Elie Amaya APRN.GIS ADMINISTRATOR Work Phone: [facility] Start: 04-08-2024 End: 04-08-2024 ambulatory ELIE AMAYA Facility:[facility] Start: 04-08-2024 End: 04-08-2024 Office outpatient visit 25 minutes Elie Amaya APRN.GIS ADMINISTRATOR Work Phone: [facility] Comment on above: Controlled type 2 di abetes mellitus without complication, without long-term current use of insulin (HCC) (Primary Dx); Mixed hyperlipidemia; Anxiety with depression Start: 03-23-2024 Encounter for other preprocedural examination [facility] Start: 03-11-2024 End: 03-11-2024 Telephone encounter Ching Leonard MD Work Phone: [facility] Start: 03-11-2024 End: 03-11-2024 ambulatory Elie Monique CAN SOLDERER Facility:[facility] Start: 02-29-2024 End: 02-29-2024 ambulatory Elie Amaya CAN SOLDERER Facility[place] Start: 02-29-2024 End: 02-29-2024 ambulatory Elie Monique CAN SOLDERER Facility:[facility] Start: 02-09-2024 End: 02-09-2024 Orders Only Ching Leonard MD Work Phone: [facility] Comment on above: Elevated PSA (Primar y Dx) Start: 02-08-2024 End: 02-08-2024 ambulatory CHING LEONARD Facility:[facility] Start: 02-08-2024 End: 02-08-2024 Patient encounter procedure Ching Leonard MD Work Phone: [facility] Comment on above: Hospital discharge f ollow-up (Primary Dx); Enlarged prostate; Flank pain; Upset stomach; Screening for prostate cancer Start: 02-02-2024 End: 02-02-2024 Emergency department patient visit Elie Amaya NP Facility:[facility] Start: 12-01-2023 End: 12-01-2023 Patient encounter procedure Ching Leonard MD Work Phone: [facility] Comment on above: Cough, unspecified t ype (Primary Dx); Bronchitis; Controlled type 2 diabetes mellitus without complication, without long-term current use of insulin (HCC); Mixed hyperlipidemia Start: 11-06-2023 End: 11-06-2023 Office outpatient visit 15 minutes Elie Amaya APRN.GIS ADMINISTRATOR Work Phone: [facility] Comment on above: Anxiety with depress ion (Primary Dx) Start: 10-03-2023 ambulatory Elie PATRICIA RN.GIS ADMINISTRATOR Work Phone: [facility] Comment on above: Labs Start: 10-03-2023 E-mail encounter fro m caregiver Elie Amaya APRN.GIS ADMINISTRATOR Work Phone: [facility] Start: 10-02-2023 End: 10-02-2023 Office outpatient visit 25 minutes Elie Amaya APRN.GIS ADMINISTRATOR Work Phone: [facility] Comment on above: Controlled type 2 di abetes mellitus without complication, without long-term current use of insulin (HCC) (Primary Dx); Mixed hyperlipidemia; Screening for depression; Encounter for screening examination for other mental health and behavioral disorders; Anxiety with depression; Screening for colon cancer Start: 09-28-2023 Refill Elie PATRICIA RN.GIS ADMINISTRATOR Work Phone: [facility] Comment on above: Refill Request Start: 09-24-2023 Refill Elie PATRICIA RN.GIS ADMINISTRATOR Work Phone: [facility] Comment on above: Refill Request Start: 09-21-2023 End: 09-21-2023 Patient encounter procedure Lazarus Hdz OD Work Phone: Ophthalmology Comment on above: Type 2 diabetes ekta itus without retinopathy (HCC) (Primary Dx); Nuclear sclerosis of both eyes; Cortical age-related cataract, bilateral; Dry eye syndrome of bilateral lacrimal glands; Presbyopia Start: 09-04-2023 Telephone encounter Ching hilton MD Work Phone: [facility] Comment on above: Insurance Authorizat ion Start: 09-01-2023 Telephone encounter Ching hilton MD Work Phone: [facility] Comment on above: Medication Problem Start: 08-07-2023 Telephone encounter Ching hilton MD Work Phone: [facility] Comment on above: Insurance Authorizat ion (trulicity) Start: 06-15-2023 End: 06-15-2023 ambulatory [facility] Work Phone: Start: 06-15-2023 End: 06-15-2023 Discharged Recurring [facility] Work Phone: Start: 05-16-2023 End: 05-16-2023 Patient encounter procedure Adrian Armond Work Phone: Podiatry Comment on above: Hammertoe of left fo ot (Primary Dx); Callus between toes Start: 05-09-2023 Refill Ching campo MD Work Phone: [facility] Comment on above: Refill Request Start: 04-06-2023 Refill Ching campo MD Work Phone: [facility] Comment on above: Refill Request Start: 02-16-2023 End: 02-16-2023 Admission to same day surgery center CAN SOLDERERNancy Amaya NP Work Phone: [facility] Start: 02-16-2023 End: 02-16-2023 ambulatory CAN SOLDERERNancy Amaya NP Work Phone: [facility] Work Phone: Start: 02-08-2023 End: 02-08-2023 Non-patient / Non-visit CAN SOLDERER-C Elie Amaya NP Work Phone: [facility] Work Phone: Start: 01-17-2023 Telephone encounter Adrian Oliver Work Phone: Podiatry Comment on above: Patient Question; Ap pointment Start: 01-03-2023 End: 01-03-2023 Subsequent hospital visit by physician Xr [facility] Work Phone: Radiology Comment on above: Ulcer of toe of left foot, limited to breakdown of skin (HCC) [L97.521] Start: 01-03-2023 End: 01-03-2023 Patient encounter procedure Adrian Leahy Work Phone: Podiatry Comment on above: Ulcer of toe of left foot, limited to breakdown of skin (HCC) (Primary Dx); Other diabetic neurological complication associated with type 2 diabetes mellitus (HCC); Hammertoe of left foot Start: 12-14-2022 Telephone encounter Ching hilton MD Work Phone: [facility] Comment on above: Refill Request Start: 12-13-2022 Telephone encounter Elie etienne APRN.GIS ADMINISTRATOR Work Phone: [facility] Comment on above: Results Start: 09-19-2022 End: 09-19-2022 Patient encounter procedure Lazarus Hdz OD Work Phone: Ophthalmology Comment on above: Type 2 diabetes ekta itus without retinopathy (HCC) (Primary Dx); Nuclear sclerosis of both eyes; Cortical age-related cataract, bilateral; Presbyopia; Dry eye syndrome of bilateral lacrimal glands Start: 09-13-2022 Telephone encounter Elie etienne APRN.GIS ADMINISTRATOR Work Phone: [facility] Comment on above: Results Start: 09-12-2022 End: 09-12-2022 Office outpatient visit 25 minutes Elie Amaya APRN.GIS ADMINISTRATOR Work Phone: [facility] Comment on above: Controlled type 2 di abetes mellitus without complication, without long-term current use of insulin (HCC) (Primary Dx); Mixed hyperlipidemia; Screening for diabetic retinopathy Start: 07-27-2022 End: 07-27-2022 ambulatory [facility] Work Phone: Start: 07-27-2022 End: 07-27-2022 Patient encounter procedure [facility] - [facility] Work Phone: Start: 07-07-2022 End: 07-07-2022 Patient encounter procedure [facility], [facility] Work Phone: Start: 06-15-2022 Telephone encounter Elie etienne APRN.GIS ADMINISTRATOR Work Phone: [facility] Comment on above: Insurance Authorizat ion (dulaglutide (TRULICITY) 0.75 mg/0.5 mL pen injector-patient told last night when he went to picker box operator the medication that it was declined by his insurance) Start: 06-13-2022 End: 06-13-2022 Office outpatient visit 25 minutes Elie Amaya APRN.GIS ADMINISTRATOR Work Phone: [facility] Comment on above: Controlled type 2 di abetes mellitus without complication, without long-term current use of insulin (HCC) (Primary Dx); Mixed hyperlipidemia; Screening for colon cancer Start: 04-13-2022 End: 04-13-2022 Patient encounter procedure Adrian Leahy Work Phone: Podiatry Comment on above: Hammer toes of both feet (Primary Dx); Callus between toes; Other diabetic neurological complication associated with type 2 diabetes mellitus (HCC); Diminished pulses in lower extremity Start: 04-13-2022 End: 04-13-2022 Patient encounter procedure Alicia Crow APRN.GIS ADMINISTRATOR Work Phone: [facility] Comment on above: Callus between toes (Primary Dx) Start: 03-10-2022 Refill Ching campo MD Work Phone: [facility] Comment on above: Refill Request Start: 01-14-2022 End: 01-14-2022 Patient encounter procedure Santiago Adams MD Work Phone: Orthopaedics Comment on above: Arthritis of knee (P rimary Dx); Chronic pain of left knee; Old tear of medial meniscus of left knee, unspecified tear type Start: 01-12-2022 End: 01-12-2022 Patient encounter procedure Alicia Crow APRN.CNP Work Phone: [facility] [place] Comment on above: Chronic pain of left knee (Primary Dx) Start: 01-07-2022 ambulatory Elie PATRICIA RN.ONEIDA Work Phone: [facility] [place] Comment on above: Knee Xray Start: 01-07-2022 E-mail encounter fro m caregiver Elie Amaya APRN.CNP Work Phone: [facility] [place] Start: 01-07-2022 End: 01-07-2022 Subsequent hospital visit by physician Justice [facility] Work Phone: Radiology Comment on above: Chronic pain of left knee [M25.562, G89.29] Start: 12-13-2021 End: 12-13-2021 Office outpatient visit 25 minutes Elie Amaya APRN.CNP Work Phone: Family [facility] [place] Comment on above: Controlled type 2 di abetes mellitus without complication, without long-term current use of insulin (HCC) (Primary Dx); Mixed hyperlipidemia; Fungal infection of nail; Chronic pain of left knee Start: 09-08-2021 End: 09-08-2021 Patient encounter procedure Ching Leonard MD Work Phone: Family [facility] [place] Comment on above: Fungal infection of nail (Primary Dx); Controlled type 2 diabetes mellitus without complication, without long-term current use of insulin (HCC); Mixed hyperlipidemia Start: 09-05-2021 Refill Jakob Dang APRN.USHA MOHAMUD Work Phone: Family [facility] [place] Comment on above: Refill Request Start: 07-29-2021 End: 07-29-2021 Patient encounter procedure Jakob Dang APRN.USHA MOHAMUD Work Phone: [facility] [place] Comment on above: Adjustment disorder with depressed mood (Primary Dx); Controlled type 2 diabetes mellitus without complication, without long-term current use of insulin (HCC); Mixed hyperlipidemia; Fungal infection of nail Start: 07-14-2021 ambulatory Tana Callahan RN NURSE FOOD QUALITY TESTER Comment on above: Medication Problem Procedures Date Procedure Procedure Detail Performing Clinician Start: 10-02-2023 Adult depression scr eening assessment Elie Amaya APRN.CNP Work Phone: Start: 02-16-2023 Arthroscopy of ankle CAN SOLDERER -C Elie Amaya CAN SOLDERER Work Phone: Start: 07-27-2022 MRI of cervical spine Start: 07-07-2022 Plain X-ray of shoulder Start: 07-07-2022 X-ray of cervical spine Start: 01-14-2022 Arthrocentesis aspir &/inj major jt/bursa w/o us Santiago Adams MD Work Phone: Start: 01-07-2022 Radiologic exam knee complete 4/more views Elie Amaya APRN.GIS ADMINISTRATOR Work Phone: Plan of Treatment Date Care Activity Detail Author Start: 2037 RSV Vaccine (1 - 1-dose 75+ series) RSV Vaccine (1 - 1-dose 75+ series) [facility] Start: 04-08-2029 Prostate specific antigen measurement Prostate Cancer Screening Discussion [facility] Start: 02-07-2029 Prostate specific antigen measurement Prostate Cancer Screening Discussion [facility] Start: 01-10-2027 Screening for malignant neoplasm of colon [facility] Start: 03-16-2026 Urine microalbumin profile [facility] Start: 10-07-2025 Annual PCP Team Chronic Disease Visit Annual PCP Team Chronic Disease Visit [facility] Start: 10-07-2025 Hepatitis B screening Urine Albumin:Creatinine Ratio [facility] Start: 10-07-2025 Hepatitis B surface antibody level LDL Cholesterol [facility] Start: 10-07-2025 Pneumococcal Vaccine: 50+ (1 of 2 - PCV) Pneumococcal Vaccine: 50+ (1 of 2 - PCV) [facility] Comment on above: Postponed from 1981 (Declined at t his time) Start: 09-30-2025 End: 09-30-2025 Patient encounter procedure 09/30/2025 2:45 PM EDT Office Visit [facility] [address] [place] [address] Lazarus Hdz, OD [address] [place] [address] [facility] [address] [id number] 1 yr-diabetic eye exam Ophthalmology Comment on above: 1 yr-diabetic eye exam Start: 09-30-2025 Glaucoma screening Dilated Retinal Exam [facility] Start: 04-11-2025 End: 04-11-2025 Patient encounter procedure 04/11/2025 7:00 AM EST Office Visit [facility] [place] [address] [place] [address] Elie Amaya APRN.GIS ADMINISTRATOR [address] [place] [address] [address] [facility] [place] Comment on above: 6 month follow up Start: 04-10-2025 End: 07-10-2025 Comprehensive metabolic 2000 panel - Serum or Plasma COMPREHENSIVE METABOLIC PANEL Lab Routine Controlled type 2 diabetes mellitus without complication, without long-term current use of insulin (HCC) Expected: 04/10/2025, Expires: 07/10/2025 [facility] Comment on above: Expected: 04/10/2025, Expires: Start: 04-10-2025 End: 07-10-2025 Hemoglobin A1c in Blood HEMOGLOBIN A1C Lab Routine Controlled type 2 diabetes mellitus without complication, without long-term current use of insulin (HCC) Expected: 04/10/2025, Expires: 07/10/2025 [facility] Work Phone: Comment on above: Expected: 04/10/2025, Expires: Start: 04-10-2025 End: 07-10-2025 Lipid 1996 panel - Serum or Plasma LIPID PANEL, FASTING Lab Routine Controlled type 2 diabetes mellitus without complication, without long-term current use of insulin (HCC) Expected: 04/10/2025, Expires: 07/10/2025 [facility] Comment on above: Expected: 04/10/2025, Expires: Start: 04-09-2025 Hemoglobin A1c measurement HbA1C [facility] Start: 04-09-2025 PROSTATE CANCER SCREENING DISCUSSION PROSTATE CANCER SCREENING DISCUSSION [facility] Start: 04-09-2025 Prostate specific antigen measurement Prostate Cancer Screening Discussion [facility] Start: 04-08-2025 Annual PCP Team Chronic Disease Visit Annual PCP Team Chronic Disease Visit [facility] Start: 02-07-2025 Annual PCP Team Chronic Disease Visit Annual PCP Team Chronic Disease Visit [facility] Start: 11-30-2024 Annual PCP Team Chronic Disease Visit Annual PCP Team Chronic Disease Visit [facility] Start: 11-05-2024 Annual PCP Team Chronic Disease Visit Annual PCP Team Chronic Disease Visit [facility] Start: 11-05-2024 Covid-19 Vaccine () Covid-19 Vaccine () [facility] Comment on above: Postponed from 10/29/2023 (Declined at t his time) Start: 11-05-2024 Covid-19 Vaccine ( season) Covid-19 Vaccine () [facility] Comment on above: Postponed from 10/29/2023 (Declined at t his time) Start: 10-28-2024 Influenza vaccination [facility] Start: 10-07-2024 End: 01-06-2025 CBC W Auto Differential panel - Blood COMPLETE BLOOD COUNT AND DIFFERENTIAL Lab Routine Controlled type 2 diabetes mellitus without complication, without long-term current use of insulin (HCC) Expected: 10/07/2024 (Approximate), Expires: 01/06/2025 [facility] Comment on above: Expected: 10/07/2024 (Approximate), Expi res: 01/06/2025 Start: 10-07-2024 End: 01-06-2025 Comprehensive metabolic 2000 panel - Serum or Plasma COMPREHENSIVE METABOLIC PANEL Lab Routine Controlled type 2 diabetes mellitus without complication, without long-term current use of insulin (HCC) Mixed hyperlipidemia Expected: 10/07/2024 (Approximate), Expires: 01/06/2025 [facility] Comment on above: Expected: 10/07/2024 (Approximate), Expi res: 01/06/2025 Start: 10-07-2024 End: 01-06-2025 Hemoglobin A1c in Blood HEMOGLOBIN A1C Lab Routine Controlled type 2 diabetes mellitus without complication, without long-term current use of insulin (HCC) Expected: 10/07/2024 (Approximate), Expires: 01/06/2025 [facility] Comment on above: Expected: 10/07/2024 (Approximate), Expi res: 01/06/2025 Start: 10-07-2024 End: 01-06-2025 Lipid 1996 panel - Serum or Plasma LIPID PANEL BASIC Lab Routine Controlled type 2 diabetes mellitus without complication, without long-term current use of insulin (HCC) Mixed hyperlipidemia Expected: 10/07/2024 (Approximate), Expires: 01/06/2025 [facility] Comment on above: Expected: 10/07/2024 (Approximate), Expi res: 01/06/2025 Start: 10-07-2024 End: 01-06-2025 Microalbumin/Creatinine [Mass Ratio] in Urine ALBUMIN/CREATININE RATIO, URINE Lab Routine Controlled type 2 diabetes mellitus without complication, without long-term current use of insulin (HCC) Expected: 10/07/2024 (Approximate), Expires: 01/06/2025 [facility] Work Phone: Comment on above: Expected: 10/07/2024 (Approximate), Expi res: 01/06/2025 Start: 10-07-2024 End: 10-07-2024 Patient encounter procedure 10/07/2024 7:00 AM EDT Office Visit Family [facility] [place] [address] [place] [id number] Elie Amaya, EULOGIO.GIS ADMINISTRATOR [address] [place] [address] 6 month follow up [facility] [place] Comment on above: 6 month follow up Start: 10-06-2024 Hemoglobin A1c measurement HbA1C [facility] Start: 10-01-2024 Annual PCP Team Chronic Disease Visit Annual PCP Team Chronic Disease Visit [facility] Start: 10-01-2024 Anxiety Screening Anxiety Screening [facility] Start: 10-01-2024 Depression Screening Depression Screening [facility] Start: 10-01-2024 Hepatitis B screening Urine Albumin:Creatinine Ratio [facility] Start: 10-01-2024 Hepatitis B surface antibody level LDL Cholesterol [facility] Start: 09-23-2024 End: 09-23-2024 Patient encounter procedure 09/23/2024 8:00 AM EDT Office Visit [facility] [address] [place] [address] Lazarus Hdz, OD [address] [place] [address] 1YR diabetic eye exam Ophthalmology Comment on above: 1YR diabetic eye exam Start: 09-20-2024 Glaucoma screening Dilated Retinal Exam [facility] Start: 09-10-2024 End: 09-10-2024 Patient encounter procedure 09/10/2024 8:15 AM EDT Office Visit Podiatry [address] [place] [address] Adrian Leahy [address] [place] [address] follow up after testing and discuss surgery Podiatry Comment on above: follow up after testing and discuss surg kassidy Start: 09-05-2024 End: 09-05-2024 Patient encounter procedure 09/05/2024 8:00 AM EDT Office Visit Vasculary Surgery [address] [place] [address] Hammertoe of left foot [M20.42] [facility] Comment on above: Hammertoe of left foot [M20.42] Start: 08-26-2024 Influenza vaccination Influenza Vaccine (#1) [facility] Comment on above: Postponed from 10/29/2023 (Declined at t his time) Start: 04-08-2024 End: 04-08-2024 Patient encounter procedure 04/08/2024 7:00 AM EST Office Visit [facility] [place] [address] [place] [address] Elie Amaya APRN.GIS ADMINISTRATOR [address] [place] [address] 5 month follow up [facility] [place] Comment on above: 5 month follow up Start: 04-04-2024 End: 07-04-2024 Comprehensive metabolic 2000 panel - Serum or Plasma COMPREHENSIVE METABOLIC PANEL Lab Routine Controlled type 2 diabetes mellitus without complication, without long-term current use of insulin (HCC) Expected: 04/04/2024, Expires: 07/04/2024 [facility] Comment on above: Expected: 04/04/2024, Expires: Start: 04-04-2024 End: 07-04-2024 Hemoglobin A1c in Blood HEMOGLOBIN A1C Lab Routine Controlled type 2 diabetes mellitus without complication, without long-term current use of insulin (HCC) Expected: 04/04/2024, Expires: 07/04/2024 [facility] Work Phone: Comment on above: Expected: 04/04/2024, Expires: Start: 04-04-2024 End: 07-04-2024 Prostate specific Ag [Mass/volume] in Serum or Plasma PROSTATE-SPECIFIC ANTIGEN DIAGNOSTIC Lab Routine Elevated PSA Expected: 04/04/2024 (Approximate), Expires: 07/04/2024 [facility] Work Phone: Comment on above: Expected: 04/04/2024 (Approximate), Expi res: 07/04/2024 Start: 04-03-2024 Hemoglobin A1c measurement HbA1C [facility] Start: 03-09-2024 Annual PCP Team Chronic Disease Visit Annual PCP Team Chronic Disease Visit [facility] Start: 02-08-2024 End: 05-09-2024 PSA/PROSTATE SPECIFIC ANTIGEN SCREENING [facility] Work Phone: Comment on above: Expected: 02/08/2024, Expires: Start: 12-13-2023 Annual PCP Team Chronic Disease Visit Annual PCP Team Chronic Disease Visit [facility] Start: 12-13-2023 Covid-19 Vaccine () Covid-19 Vaccine () [facility] Comment on above: Postponed from 10/28/2022 (Declined at t his time) Start: 12-13-2023 Hepatitis B surface antibody level LDL Cholesterol [facility] Start: 11-06-2023 End: 11-06-2023 Patient encounter procedure 11/06/2023 7:40 AM EDT Office Visit Family [facility] [place] [address] [facility] [place] [address] Elie Amaya, EULOGIO.GIS ADMINISTRATOR [address] [place] [address] 4 week follow up Family [facility] Comment on above: 4 week follow up Start: 10-29-2023 Influenza vaccination [facility] Start: 10-02-2023 End: 01-01-2024 CBC W Auto Differential panel - Blood [facility] Comment on above: Expected: 10/02/2023, Expires: Start: 10-02-2023 End: 01-01-2024 Comprehensive metabolic 2000 panel - Serum or Plasma [facility] Comment on above: Expected: 10/02/2023, Expires: Start: 10-02-2023 End: 01-01-2024 Hemoglobin A1c in Blood [facility] Work Phone: Comment on above: Expected: 10/02/2023, Expires: Start: 10-02-2023 End: 01-01-2024 Lipid 1996 panel - Serum or Plasma [facility] Comment on above: Expected: 10/02/2023, Expires: Start: 10-02-2023 End: 01-01-2024 Microalbumin/Creatinine [Mass Ratio] in Urine [facility] Comment on above: Expected: 10/02/2023, Expires: 4 Start: 10-02-2023 End: 10-02-2023 Patient encounter procedure 10/02/2023 7:40 AM EDT Office Visit [facility] [place] [address] [facility] [place] [address] Elie Amaya, EULOGIO.GIS ADMINISTRATOR [address] [place] [id number] est physical / diabetic check [facility] [place] Comment on above: est physical / diabetic check Start: 09-21-2023 End: 09-21-2023 Patient encounter procedure 09/21/2023 8:00 AM EDT Office Visit [facility] [address] [place] [address] Lazarus Hdz, OD [address] [place] [address] 1YR diabetic eye exam Ophthalmology Comment on above: 1YR diabetic eye exam Start: 09-20-2023 Glaucoma screening Dilated Retinal Exam [facility] Start: 09-20-2023 Hepatitis C antibody, confirmatory test DILATED RETINAL EXAM [facility] Start: 09-13-2023 ANNUAL PCP TEAM CHRONIC DISEASE VISIT ANNUAL PCP TEAM CHRONIC DISEASE VISIT [facility] Start: 08-27-2023 Influenza vaccination Influenza Vaccine (#1) [facility] Comment on above: Postponed from 10/28/2022 (Declined at t his time) Start: 06-14-2023 ANNUAL PCP TEAM CHRONIC DISEASE VISIT ANNUAL PCP TEAM CHRONIC DISEASE VISIT [facility] Start: 06-14-2023 Hepatitis B screening URINE ALBUMIN:CREATININE RATIO [facility] Start: 06-14-2023 Hepatitis B surface antibody level LDL CHOLESTEROL [facility] Start: 06-13-2023 Hemoglobin A1c measurement HbA1C [facility] Start: 06-13-2023 Hemoglobin A1c/Hemoglobin.total in Blood HbA1C [facility] Start: 06-07-2023 End: 09-06-2023 ALBUMIN/CREAT RATIO RND UR ALBUMIN/CREAT RATIO RND UR Lab Routine Controlled type 2 diabetes mellitus without complication, without long-term current use of insulin (HCC) Expected: 06/07/2023 (Approximate), Expires: 09/06/2023 [facility] Work Phone: Comment on above: Expected: 06/07/2023 (Approximate), Expi res: 09/06/2023 Start: 06-07-2023 End: 09-06-2023 Comprehensive metabolic 2000 panel - Serum or Plasma COMP METABOLIC PANEL Lab Routine Controlled type 2 diabetes mellitus without complication, without long-term current use of insulin (HCC) Mixed hyperlipidemia Expected: 06/07/2023 (Approximate), Expires: 09/06/2023 [facility] Work Phone: Comment on above: Expected: 06/07/2023 (Approximate), Expi res: 09/06/2023 Start: 06-07-2023 End: 09-06-2023 Hemoglobin A1c in Blood HGB A1C Lab Routine Controlled type 2 diabetes mellitus without complication, without long-term current use of insulin (HCC) Expected: 06/07/2023 (Approximate), Expires: 09/06/2023 [facility] Work Phone: Comment on above: Expected: 06/07/2023 (Approximate), Expi res: 09/06/2023 Start: 06-07-2023 End: 09-06-2023 Lipid 1996 panel - Serum or Plasma LIPID PANEL BASIC Lab Routine Mixed hyperlipidemia Expected: 06/07/2023 (Approximate), Expires: 09/06/2023 [facility] Work Phone: Comment on above: Expected: 06/07/2023 (Approximate), Expi res: 09/06/2023 Start: 04-13-2023 3 comp foot exam completed Diabetic Foot Exam [facility] Start: 04-13-2023 ANNUAL PCP TEAM CHRONIC DISEASE VISIT ANNUAL PCP TEAM CHRONIC DISEASE VISIT [facility] Start: 04-13-2023 Diabetic foot examination Diabetic Foot Exam [facility] Start: 03-15-2023 Hemoglobin A1c/Hemoglobin.total in Blood HBA1C [facility] Start: 02-27-2023 Behavioral Health Screening Behavioral Health Screening [facility] Start: 02-27-2023 Depression Assessment Depression Assessment [facility] Start: 02-16-2023 Anes nerve muscle tdn fascia&bursa forearm wrist ANESTH LOWER ARM SURGERY [facility] Start: 02-16-2023 Ndsc wrst surg w/rls transvrs carpl ligm WRIST ENDOSCOPY/SURGERY [facility] Start: 02-16-2023 Application of ice collar, cap or bag [facility] Start: 02-16-2023 Catheterization of vein [facility] Start: 02-16-2023 Following clinical pathway protocol [facility] Start: 02-16-2023 Patient discharge [facility] Start: 02-16-2023 Procedure discontinued [facility] Start: 02-16-2023 Taking patient vital signs [facility] Start: 02-16-2023 Vital signs measurements [facility] Start: 02-16-2023 [facility] Start: 02-16-2023 Medication education [facility] Start: 01-12-2023 ANNUAL PCP TEAM CHRONIC DISEASE VISIT ANNUAL PCP TEAM CHRONIC DISEASE VISIT [facility] Start: 12-14-2022 End: 02-13-2023 Comprehensive metabolic 2000 panel - Serum or Plasma COMP METABOLIC PANEL Lab Routine Controlled type 2 diabetes mellitus without complication, without long-term current use of insulin (HCC) Expected: 12/14/2022 (Approximate), Expires: 02/13/2023 [facility] Work Phone: Comment on above: Expected: 12/14/2022 (Approximate), Expi res: 02/13/2023 Start: 12-14-2022 End: 02-13-2023 Hemoglobin A1c in Blood HGB A1C Lab Routine Controlled type 2 diabetes mellitus without complication, without long-term current use of insulin (HCC) Expected: 12/14/2022 (Approximate), Expires: 02/13/2023 [facility] Work Phone: Comment on above: Expected: 12/14/2022 (Approximate), Expi res: 02/13/2023 Start: 12-14-2022 End: 02-13-2023 Lipid 1996 panel - Serum or Plasma LIPID PANEL BASIC Lab Routine Controlled type 2 diabetes mellitus without complication, without long-term current use of insulin (HCC) Expected: 12/14/2022 (Approximate), Expires: 02/13/2023 [facility] Work Phone: Comment on above: Expected: 12/14/2022 (Approximate), Expi res: 02/13/2023 Start: 12-13-2022 ANNUAL PCP TEAM CHRONIC DISEASE VISIT ANNUAL PCP TEAM CHRONIC DISEASE VISIT [facility] Start: 12-13-2022 Hepatitis B surface antibody level LDL CHOLESTEROL [facility] Start: 10-28-2022 Influenza vaccination [facility] Start: 09-12-2022 Hemoglobin A1c/Hemoglobin.total in Blood HBA1C [facility] Start: 09-08-2022 3 comp foot exam completed DIABETIC FOOT EXAM [facility] Start: 09-08-2022 ANNUAL PCP TEAM CHRONIC DISEASE VISIT ANNUAL PCP TEAM CHRONIC DISEASE VISIT [facility] Start: 07-29-2022 ANNUAL PCP TEAM CHRONIC DISEASE VISIT ANNUAL PCP TEAM CHRONIC DISEASE VISIT [facility] Start: 07-14-2022 ANNUAL PCP TEAM CHRONIC DISEASE VISIT ANNUAL PCP TEAM CHRONIC DISEASE VISIT [facility] Start: 06-13-2022 End: 08-13-2022 ALBUMIN/CREAT RATIO RND UR [facility] Work Phone: Comment on above: Expected: 06/13/2022, Expires: 3 Start: 06-13-2022 End: 08-13-2022 Comprehensive metabolic 2000 panel - Serum or Plasma [facility] Work Phone: Comment on above: Expected: 06/13/2022, Expires: 3 Start: 06-13-2022 End: 08-13-2022 Hemoglobin A1c in Blood [facility] Work Phone: Comment on above: Expected: 06/13/2022, Expires: 3 Start: 06-13-2022 End: 08-13-2022 Lipid 1996 panel - Serum or Plasma [facility] Work Phone: Comment on above: Expected: 06/13/2022 (Approximate), Expi res: 08/13/2022 Start: 2022 Hepatitis B Vaccine (1 of 3 - Risk 3-dose series) Hepatitis B Vaccine (1 of 3 - Risk 3-dose series) [facility] Start: 2022 RSV Vaccine (1 - 1-dose 60+ series) RSV Vaccine (1 - 1-dose 60+ series) [facility] Start: 04-28-2022 COLORECTAL CANCER SCREENING COLORECTAL CANCER SCREENING [facility] Start: 04-28-2022 FECAL OCCULT BLOOD FECAL OCCULT BLOOD [facility] Start: 04-28-2022 Screening for malignant neoplasm of colon [facility] Start: 04-27-2022 Hepatitis C antibody, confirmatory test DILATED RETINAL EXAM [facility] Start: 04-20-2022 Hepatitis B screening URINE ALBUMIN:CREATININE RATIO [facility] Start: 04-20-2022 Hepatitis B surface antibody level LDL CHOLESTEROL [facility] Start: 04-20-2022 ONE PNEUMOVAX PRIOR TO AGE 65 ONE PNEUMOVAX PRIOR TO AGE 65 [facility] Comment on above: Postponed from 1978 (Declined at t his time) Start: 04-20-2022 PNEUMOCOCCAL (1 - PCV) PNEUMOCOCCAL (1 - PCV) [facility] Comment on above: Postponed from 1968 (Declined at t his time) Start: 03-15-2022 Hemoglobin A1c/Hemoglobin.total in Blood HBA1C [facility] Start: 02-27-2022 DEPRESSION ASSESSMENT DEPRESSION ASSESSMENT [facility] Start: 12-09-2021 End: 02-08-2022 Comprehensive metabolic 2000 panel - Serum or Plasma COMP METABOLIC PANEL Lab Routine Controlled type 2 diabetes mellitus without complication, without long-term current use of insulin (HCC) Expected: 12/09/2021 (Approximate), Expires: 02/08/2022 [facility] Work Phone: Comment on above: Expected: 12/09/2021 (Approximate), Expi res: 02/08/2022 Start: 12-09-2021 End: 02-08-2022 Hemoglobin A1c in Blood HGB A1C Lab Routine Controlled type 2 diabetes mellitus without complication, without long-term current use of insulin (HCC) Mixed hyperlipidemia Expected: 12/09/2021 (Approximate), Expires: 02/08/2022 [facility] Work Phone: Comment on above: Expected: 12/09/2021 (Approximate), Expi res: 02/08/2022 Start: 12-09-2021 End: 02-08-2022 Lipid 1996 panel - Serum or Plasma LIPID PANEL BASIC Lab Routine Mixed hyperlipidemia Expected: 12/09/2021 (Approximate), Expires: 02/08/2022 [facility] Work Phone: Comment on above: Expected: 12/09/2021 (Approximate), Expi res: 02/08/2022 Start: 10-28-2021 Influenza vaccination [facility] Start: 10-27-2021 3 comp foot exam completed DIABETIC FOOT EXAM [facility] Start: 10-18-2021 Hemoglobin A1c/Hemoglobin.total in Blood HBA1C [facility] Start: 07-29-2021 End: 09-28-2021 T3 BLD [facility] Work Phone: Comment on above: Expected: 07/29/2021, Expires: 2 Start: 07-29-2021 End: 09-28-2021 T4 FREE/FREE THYROX [facility] Work Phone: Comment on above: Expected: 07/29/2021, Expires: 2 Start: 07-29-2021 End: 09-28-2021 Thyrotropin [Units/volume] in Serum or Plasma [facility] Work Phone: Comment on above: Expected: 07/29/2021, Expires: 2 Start: 06-07-2021 COVID-19 VACCINE (4 - Booster for Moderna series) COVID-19 VACCINE (4 - Booster for Moderna series) [facility] Start: 04-03-2021 COVID-19 VACCINE (4 - Booster for Moderna series) COVID-19 VACCINE (4 - Booster for Moderna series) [facility] Start: 04-03-2021 COVID-19 VACCINE (4 - Moderna series) COVID-19 VACCINE (4 - Moderna series) [facility] Start: 05-29-2007 COLOGUARD (FIT-DNA) COLOGUARD (FIT-DNA) [facility] Start: 05-29-2007 Colonoscopy COLONOSCOPY [facility] Start: 05-29-[address] COLONOGRAPHY [facility] Start: 05-29-2007 Screening for malignant neoplasm of colon [facility] Start: 05-29-2007 SIGMOIDOSCOPY SIGMOIDOSCOPY [facility] Start: 1981 HEPATITIS B (1 of 3 - Risk 3-dose series) HEPATITIS B (1 of 3 - Risk 3-dose series) [facility] Start: 1981 Pneumococcal Vaccine: 50+ (1 of 2 - PCV) Pneumococcal Vaccine: 50+ (1 of 2 - PCV) [facility] Start: 1980 Anxiety Screening Anxiety Screening [facility] Start: 1980 Depression Screening Depression Screening [facility] Start: 1968 PNEUMOCOCCAL (1 - PCV) PNEUMOCOCCAL (1 - PCV) [facility] Start: 1968 [facility] COLOGUARD Lab Ro utine Screening for colon cancer Ordered: 10/02/2023 [facility] Comment on above: Ordered: 10/02/2023 Hemoglobin.gastroint jose angel nal.lower [Presence] in Stool by Immunoassay FECAL OCCULT BLOOD TEST Lab Routine Screening for colon cancer Ordered: 06/13/2022 [facility] Work Phone: Comment on above: Ordered: 06/13/2022 Patient referral [facility] Work Phone: End: 04-13-2023 PVR ANK PRESS [facility]VR ANK [facility] Vascular Lab Routine Callus between toes Hammer toes of both feet Diminished pulses in lower extremity 1 Occurrences starting 04/13/2022 until 04/13/2023 [facility] Work Phone: Comment on above: 1 Occurrences starting 04/13/2022 until 04/13/2023 End: 05-13-2023 XR FOOT GENERAL 3V AP/LAT/OBL BILATERAL XR FOOT GENERAL 3V AP/LAT/OBL BILATERAL Radiology Routine Hammer toes of both feet 1 Occurrences starting 04/13/2022 until 05/13/2023 [facility] Work Phone: Comment on above: 1 Occurrences starting 04/13/2022 until 05/13/2023 XR FOOT GENERAL 3V AP/LAT/OBL BILATERAL XR FOOT GENERAL 3V AP/LAT/OBL BILATERAL Radiology Routine Hammer toes of both feet 04/13/2022 4:23 PM EST [facility] Work Phone: End: 02-02-2024 XR FOOT GENERAL 3V AP/LAT/OBL LEFT XR FOOT GENERAL 3V AP/LAT/OBL LEFT Radiology Routine Ulcer of toe of left foot, limited to breakdown of skin (HCC) Other diabetic neurological complication associated with type 2 diabetes mellitus (HCC) Hammertoe of left foot 1 Occurrences starting 01/03/2023 until 02/02/2024 [facility] Work Phone: Comment on above: 1 Occurrences starting 01/03/2023 until 02/02/2024 XR FOOT GENERAL 3V AP/LAT/OBL LEFT XR FOOT GENERAL 3V AP/LAT/OBL LEFT Radiology Routine Ulcer of toe of left foot, limited to breakdown of skin (HCC) Other diabetic neurological complication associated with type 2 diabetes mellitus (HCC) Hammertoe of left foot 01/03/2023 9:42 AM EST [facility] Work Phone: End: 01-12-2023 XR KNEE GENERAL 4V AP BOTH/PA BOTH/LAT/MERC LEFT XR KNEE GENERAL 4V AP BOTH/PA BOTH/LAT/MERC LEFT Radiology Routine Chronic pain of left knee 1 Occurrences starting 12/13/2021 until 01/12/2023 [facility] Work Phone: Comment on above: 1 Occurrences starting 12/13/2021 until 01/12/2023 [facility] Immunizations Immunization Date Immunization Notes Care Provider Eusebia bach 10-27-2020 zoster vaccine recombinant Tana Callahan RN [facility] 07-21-2020 zoster vaccine recombinant Tana Callahan RN [facility] 06-11-2020 COVID-19 vaccine, fu ll dose (MODERNA) Tana Callahan RN [facility] Work Phone: 05-14-2020 COVID-19 vaccine, fu ll dose (MODERNA) Tana Callahan RN [facility] Work Phone: 03-16-2016 tetanus toxoid, redu fernandez diphtheria toxoid, and acellular pertussis vaccine, adsorbed Tana Callahan RN [facility] Work Phone: 02-03-2016 influenza, seasonal, injectable Tana Callahan RN [facility] Work Phone: 02-03-2016 influenza virus vaccine, unspecified formulation Elie Amaya APRN.GIS ADMINISTRATOR Work Phone: [facility] 01-16-2015 influenza, seasonal, injectable Tana Callahan RN [facility] Work Phone: 09-20-2011 hepatitis A vaccine, adult dosage Tana Callahan RN [facility] Work Phone: 03-22-2011 hepatitis A vaccine, adult dosage Tana Callahan RN [facility] Work Phone: 03-18-2011 tetanus toxoid, redu fernandez diphtheria toxoid, and acellular pertussis vaccine, adsorbed Tana Callahan RN [facility] Work Phone: Payers Date Payer Category Payer Self-pay 2021 [facility] [id number] 2021-Present [phone] [address] [address] [place] [address] O [id number] 2021 Private Health Insurance [id number] 2021 Unknown [id number] Unknown ANTHEM [id number] Unknown COMMERCIAL OTHER [id number] Unknown [id number] Unknown [id number] Unknown [id number] Unknown [id number] Unknown [id number] Unknown [id number] Social History Date Type Detail Facility Start: 09-23-2019 End: 12-05-2024 Tobacco smoking status NCIS Never smoked tobacco [facility] Work Phone: Start: 09-23-2019 End: 12-13-2021 Tobacco use and exposure Smokeless tobacco non-user [facility] Work Phone: Start: 07-14-2021 End: 10-07-2024 Alcohol intake Ex-drinker (finding) [facility] Start: 09-23-2019 End: 04-13-2022 History SDOH Alcohol Frequency 2 [facility] Start: 09-23-2019 End: 04-13-2022 History SDOH Alcohol Std Drinks 1 [facility] Start: 1960 Sex Assigned At Male [facility] Work Phone: Start: 07-28-2021 End: 04-13-2022 History SDOH Social Connections Phone 3 [facility] Start: 07-28-2021 History SDOH Physical Activity DPW 0 [facility] Start: 07-28-2021 End: 04-13-2022 History SDOH Financial 5 [facility] Start: 07-04-2021 End: 07-14-2021 Exposure to SARS-CoV-2 (event) Unable to assess [facility] Work Phone: Start: 08-27-2021 End: 01-12-2022 Exposure to SARS-CoV-2 (event) Not sure [facility] Start: 04-13-2022 End: 07-18-2022 History of Social function [facility] Start: 04-13-2022 End: 07-18-2022 Social connection and isolation panel [facility] Do you belong to any clubs or organizations such as episcopalian groups, unions, fraternal or athletic groups, or school groups? Yes [facility] Are you now , , , , never or living with a partner? [facility] How often to you hav e a drink containing alcohol? Monthly or less [facility] How many standard dr inks containing alcohol do you have on a typical day? 1 or 2 [facility] How often do you hav e 6 or more drinks on 1 occasion? Never [facility] Start: 09-14-2014 How hard is it for you to pay for the very basics like food, housing, medical care, and heating Not hard at all [facility] (I/We) worried wheth er (my/our) food would run out before (I/we) got money to buy more. Never true [facility] In the past 12 month s, was there a time when you were not able to pay the mortgage or rent on time? No [facility] Start: 09-23-2019 Gender identity Identifies as male gender (finding) [facility] Work Phone: Start: 09-23-2019 Sexual orientation Heterosexual (finding) [facility] Work Phone: Start: 02-08-2023 End: 02-08-2023 Tobacco smoking status NHIS Unknown if ever smoked [facility] How often to you hav e a drink containing alcohol? 2-3 time sa week [facility] Do you feel stress - tense, restless, nervous, or anxious, or unable to sleep at night because your mind is troubled all the time - these days [OSQ] Only a little [facility] Do you feel stress - tense, restless, nervous, or anxious, or unable to sleep at night because your mind is troubled all the time - these days [OSQ] To some extent [facility] Do you feel stress - tense, restless, nervous, or anxious, or unable to sleep at night because your mind is troubled all the time - these days [OSQ] Not at all [facility] Goals Date Patient Goal Desired Activity /State Mental Status Date Assessment Result Facility 02-16-2023 Cognitive function Voice/Name [facility] Work Phone: Clinical Notes 07-14-2021 to 10-07-2024 Patient InstructionsElie Amaya APRN.GIS ADMINISTRATOR - 10/07/2024 7:00 AM Lazarus Kilpatrick OD - 09/30/2024 2:15 PM Adrian Graham - 09/10/2024 11:05 PM Lolly Ayala LPN - 09/10/2024 8:06 AM EDT Note Date & Type Note Facility 10-07-2024 Instructions Elie Amaya APRN.CNP - 10/07/2024 7:10 AM EDT We discussed your weight loss: - You have lost approximately 15-16 pounds since your last visit in March. This is likely due to your medications and your active lifestyle. - Metformin has a weight-neutral effect, and semaglutide (Ozempic) at the maximum dose is a strong appetite suppressant, which can contribute to weight loss. - Continue your current medications and maintain your active lifestyle and healthy diet. We discussed your medications: - Continue taking Metformin, Simvastatin 40 mg, and Prozac 10 mg as prescribed. - A refill for Metformin has been sent to your preferred [facility] pharmacy. - You reported that Prozac is working well for you, and no changes are needed at this time. We discussed your lab work: - Blood work was ordered today, including a cholesterol panel, hemoglobin A1c, complete blood count (CBC), and metabolic profile, to monitor your overall health and medication effects. - If you are able to complete the lab work today, I will review the results and send you a message through Spime. We discussed your health maintenance: - Your hemoglobin A1c was previously 7.3, which indicates good control of your diabetes. Based on your weight loss and medication adherence, I anticipate it may have improved further. - You declined the pneumonia vaccine today and opted to postpone it for another year. We discussed your symptoms: - You reported no chest pain, shortness of breath, fevers, chills, fainting, or neuropathy symptoms such as numbness or tingling in your feet. No further evaluation is needed at this time. We discussed your follow-up care: - I will continue to be your provider, but I will be transitioning to work with Dr. Faria s team after December 31. You do not need to take any action to continue seeing me. - Your next follow-up appointment is in 6 months. At that time, we may consider introducing you to Dr. Faria for continuity of care. We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 07/29/2021 88.9 kg (196 lb) 04/20/2021 89.4 kg (197 lb 3.2 oz) 10/27/2020 92.1 kg (203 lb) 07/21/2020 93.4 kg (206 lb) 04/09/2020 93.9 kg (207 lb) Medication and allergy list reviewed, reconciled and updated 07/29/2021 Component Latest Ref Rng & Units 04/09/2020 04/28/2021 TSH 0.270 - 4.200 uU/mL 1.740 Free T4 0.9 - 1.7 ng/dL 1.2 Occult Blood, Stool Negative Negative ASSESSMENT/PLAN: 1. Adjustment disorder with depressed mood - ICD9: 309.0, ICD10: F43.21 (primary diagnosis) Recent improvement over this past week with mood and depression. Shared decision to wait on medication treatment for depression given improvement in symptoms over this past week. GAD7 - 14 PHQ9 - 14 Continue with counseling No SI or HI follow up in 4 weeks with Elie Amaya. If no improvement then consider an SSRI. Recommend: Working to reduce overall frequency, intensity, and duration of anxiety so that daily functioning is not impaired. Learn and implement coping skills that result in a reduction of anxiety and worry, and improved daily functioning. Discussed sleep hygiene and importance of sleep. Use of social support system for depressive feelings F/u with Behavioral Health Counselor or Therapist Discussed safety plan: That includes ER, 911 and Crisis hotline # [phone] If symptoms worsen return to clinic or initiate safety plan - TSH BLD - T4 FREE/FREE THYROX - T3 BLD 2. Controlled type 2 diabetes mellitus without complication, without long-term current use of insulin (HCC) - ICD9: 250.00, ICD10: E11.9 Improved controlled per current A1C -which was 7.6%. Discussed medication compliance and routine follow-up to manage diabetes. BP well controlled and at goal. - Continue current medications. - Encouraged regular aerobic exercise and weight loss - Follow up in 3 months, sooner should any other issues arise. - Discussed diabetic education issues of chcf diabetic complications, hypoglycemic symptoms, hyperglycemic symptoms, diet and medications- side effects and need for compliance with patient. - BP goal of <130/80 - LDL goal of <100 - A1C goal of 7%. - METFORMIN 1,000 MG TABLET - SIMVASTATIN 40 MG TABLET 3. Mixed hyperlipidemia - ICD9: 272.2, ICD10: E78.2 - good control - Continue current medication. - Encouraged following a low carbohydrate, healthy oil intake diet. - Continue current therapy. - METFORMIN 1,000 MG TABLET - SIMVASTATIN 40 MG TABLET 4. Fungal infection of nail - ICD9: 110.1, ICD10: B35.1 Discontinue Lamisil. Continue to monitor. Jakob Dang DNP.GIS ADMINISTRATOR This note was completed with [employer] dictation software. Note was reviewed for accuracy. There may be minor misspellings or grammar miscues with [employer]. I spent a total of 28 minutes on the date of the service which included preparing to see the patient, [id number] patient care, completing clinical documentation, performing a medically appropriate examination, counseling and educating the patient/family/caregiver and ordering medications, tests, or procedures. [place] [id number] This note was copied from previous note and exam dated 04/20/21 . Author is Jakob Dang DNP.ONEIDA note reviewed and changes have been made or updates noted in the copy & paste portion of an encounter. documented in this encounterBrecksville Va [facility]05-18-2022 Miscellaneous Notes* Telephone Encounter - Jakob Dagn APRN.CNP, DNP - 07/14/2021 8:41 AM EDT Noted. Jakob Dang APRN.CNP, DNP * Telephone Encounter - Tana Callahan RN - 07/14/2021 7:47 AM EDT Patient calling with a medication question. Patient denies any new or worsening symptoms of which aprovider is not aware: No. Patient is questioning side effect (depression) of medications that he is taking (alone or in combination). Patient advised to call PCP when the office is open for assistance. Reason for Disposition [1] Caller has NON-URGENT medicine question about med that PCP prescribed AND [2] triager unable toanswer question Protocols used: MEDICATION QUESTION [id number] [facility]* Diagnosis Adjustment disorder with depressed mood- Primary Controlled type 2 diabetes mellitus without complication, without long-term current use of insulin (HCC) Mixed hyperlipidemia Fungal infection of nail Dermatophytosis of nail [facility] Diagnosis Fungal infection of nail Dermatophytosis of nail [facility] Diagnosis Fungal infection of nail- Primary Dermatophytosis of nail Controlled type 2 diabetes mellitus without complication, without long-term current use of insulin (HCC) Mixed hyperlipidemia [facility]* Diagnosis Controlled type 2 diabetes mellitus without complication, without long-term current use of insulin (HCC)- Primary Mixed hyperlipidemia Fungal infection of nail Dermatophytosis of nail Chronic pain of left knee Pain in joint, lower leg [facility] Diagnosis Chronic pain of left knee- Primary Pain in joint, lower leg [facility]* Diagnosis Arthritis of knee- Primary Unspecified arthropathy, lower leg Chronic pain of left knee Pain in joint, lower leg Old tear of medial meniscus of left knee, unspecified tear type [facility]* Diagnosis Controlled type 2 diabetes mellitus without complication, without long-term current use of insulin (HCC) Mixed hyperlipidemia [facility]* Diagnosis Callus between toes- Primary [facility] Diagnosis Hammer toes of both feet- Primary Callus between toes Other diabetic neurological complication associated with type 2 diabetes mellitus (HCC) Diminished pulses in lower extremity Other symptoms involving cardiovascular system documented in this encounter [facility] note* Diagnosis Controlled type 2 diabetes mellitus without complication, without long-term current use of insulin (HCC)- Primary Mixed hyperlipidemia Screening for colon cancer Special screening for malignant neoplasms, colon documented in this encounter [facility] noteNo assessment information availableWKindred Healthcare Work Phone: Evaluation note* Diagnosis Controlled type 2 diabetes mellitus without complication, without long-term current use of insulin (HCC)- Primary Mixed hyperlipidemia Screening for diabetic retinopathy Screening for other eye conditions [facility]* Diagnosis Controlled type 2 diabetes mellitus without complication, without long-term current use of insulin (HCC) [facility]* Diagnosis Type 2 diabetes mellitus without retinopathy (HCC)- Primary Type II or unspecified type diabetes mellitus without mention of complication, not stated as uncontrolled Nuclear sclerosis of both eyes Cortical age-related cataract, bilateral Presbyopia Dry eye syndrome of bilateral lacrimal glands Tear film insufficiency, unspecified [facility]* Diagnosis Controlled type 2 diabetes mellitus without complication, without long-term current use of insulin (HCC)- Primary Mixed hyperlipidemia [facility] Diagnosis Chronic pain of left knee Pain in joint, lower leg [facility] Diagnosis Ulcer of toe of left foot, limited to breakdown of skin (HCC)- Primary Other diabetic neurological complication associated with type 2 diabetes mellitus (HCC) Hammertoe of left foot [facility] Diagnosis Ulcer of toe of left foot, limited to breakdown of skin (HCC) Other diabetic neurological complication associated with type 2 diabetes mellitus (HCC) Hammertoe of left foot [facility]* Diagnosis Controlled type 2 diabetes mellitus without complication, without long-term current use of insulin (HCC) Mixed hyperlipidemia [facility] Diagnosis Controlled type 2 diabetes mellitus without complication, without long-term current use of insulin (HCC) Mixed hyperlipidemia [facility] Diagnosis Hammertoe of left foot- Primary Callus between toes [facility]* Diagnosis Controlled type 2 diabetes mellitus without complication, without long-term current use of insulin (HCC)- Primary [facility]* Diagnosis Type 2 diabetes mellitus without retinopathy (HCC)- Primary Type II or unspecified type diabetes mellitus without mention of complication, not stated as uncontrolled Nuclear sclerosis of both eyes Cortical age-related cataract, bilateral Dry eye syndrome of bilateral lacrimal glands Tear film insufficiency, unspecified Presbyopia [facility]* Diagnosis Controlled type 2 diabetes mellitus without complication, without long-term current use of insulin (HCC) Mixed hyperlipidemia [facility]* Diagnosis Chronic pain of left knee Pain in joint, lower leg [facility] Diagnosis Controlled type 2 diabetes mellitus without complication, without long-term current use of insulin (HCC)- Primary Mixed hyperlipidemia Screening for depression Encounter for screening examination for other mental health and behavioral disorders Anxiety with depression Screening for colon cancer Special screening for malignant neoplasms, colon [facility]* Diagnosis Controlled type 2 diabetes mellitus without complication, without long-term current use of insulin (HCC)- Primary [facility]* Diagnosis Anxiety with depression- Primary [facility]* Diagnosis Chronic pain of left knee Pain in joint, lower leg documented in this encounter [facility] note* Diagnosis Cough, unspecified type- Primary Bronchitis Bronchitis, not specified as acute or chronic Controlled type 2 diabetes mellitus without complication, without long-term current use of insulin (HCC) Mixed hyperlipidemia documented in this encounter [facility] note* Diagnosis Hospital discharge follow-up- Primary Other follow-up examination Enlarged prostate Hypertrophy of prostate without urinary obstruction and other lower urinary tract symptoms (LUTS) Flank pain Abdominal pain, unspecified site Upset stomach Dyspepsia and other specified disorders of function of stomach Screening for prostate cancer Special screening for malignant neoplasm of prostate documented in this encounter [facility] note* Diagnosis Elevated PSA- Primary Elevated prostate specific antigen (PSA) documented in this encounter [facility] note* Diagnosis Controlled type 2 diabetes mellitus without complication, without long-term current use of insulin (HCC)- Primary Mixed hyperlipidemia Anxiety with depression documented in this encounter [facility] note* Diagnosis Controlled type 2 diabetes mellitus without complication, without long-term current use of insulin (HCC)- Primary Mixed hyperlipidemia documented in this encounter [facility] note* Diagnosis Controlled type 2 diabetes mellitus without complication, without long-term current use of insulin (HCC) Mixed hyperlipidemia documented in this encounter [facility] note* Diagnosis Controlled type 2 diabetes mellitus without complication, without long-term current use of insulin (HCC) documented in this encounter [facility] note* Diagnosis Hammertoe of left foot- Primary Callus between toes documented in this encounter [facility] note* Diagnosis Type 2 diabetes mellitus without retinopathy (HCC)- Primary Type II or unspecified type diabetes mellitus without mention of complication, not stated as uncontrolled Nuclear sclerosis of both eyes Cortical age-related cataract, bilateral Dry eye syndrome of bilateral lacrimal glands Tear film insufficiency, unspecified Presbyopia documented in this encounter [facility] note* Diagnosis Controlled type 2 diabetes mellitus without complication, without long-term current use of insulin (HCC)- Primary Mixed hyperlipidemia Anxiety with depression documented in this encounter [facility] note* Diagnosis Controlled type 2 diabetes mellitus without complication, without long-term current use of insulin (HCC)- Primary documented in this encounter [facility] for referral (narrative)* Diagnostic Procedure Only (Routine) - Pending Review Specialty Diagnoses / Procedures Referred By Contac t Referred To Contact XR IMAGING Diagnoses Chronic pain of left knee Procedures XR KNEE GENERAL 4V AP BOTH/PA BOTH/LAT/MERC LEFT RADIOLOGIC EXAM KNEE COMPLETE 4/MORE VIEWS Elie Amaya APRN.CNP [address] [place] [address] Xr Imaging Referral ID Status Reason Start Date Expiration Date Visits Requested Visits Authorized [id number] Pending Review Auto-Generat ed Referral 2 01/12/2023 1 1 [facility] for referral (narrative)* Outpatient Procedure (Routine) - Authorized Specialty Diagnoses / Procedures Referred By Contac t Referred To Contact [facility] Diagnoses Callus between toes Hammer toes of both feet Diminished pulses in lower extremity Procedures PVR ANK PRESS WIN[facility] NON-INVAS PHYSIOLOGIC STD EXTREMITY ART 2 LEVEL Adrian Leahy [address] [place] [address] [facility] [place] [address] [place] [address] Referral ID Status Reason Start Date Expiration Date Visits Requested Visits Authorized [id number] Authorized Auto-Generat ed Referral 04/13/2022 04/13/2023 1 1 * Diagnostic Procedure Only (Routine) - Closed Specialty Diagnoses / Procedures Referred By Contac t Referred To Contact XR IMAGING Diagnoses Hammer toes of both feet Procedures XR FOOT GENERAL 3V AP/LAT/OBL BILATERAL RADEX FOOT COMPLETE MINIMUM 3 VIEWS Adrian Leahy [address] [place] [address] Xr Imaging Referral ID Status Reason Start Date Expiration Date V isits Requested Visits Authorized [id number] Closed Auto-Generate d Referral 04/13/2022 05/13/2023 1 1 [facility] for referral (narrative)* Diagnostic Procedure Only (Routine) - Closed Specialty Diagnoses / Procedures Referred By Contac t Referred To Contact XR IMAGING Diagnoses Ulcer of toe of left foot, limited to breakdown of skin (HCC) Other diabetic neurological complication associated with type 2 diabetes mellitus (HCC) Hammertoe of left foot Procedures XR FOOT GENERAL 3V AP/LAT/OBL LEFT RADEX FOOT COMPLETE MINIMUM 3 VIEWS Adrian Leahy [address] [place] [address] [place] [address] Referral ID Status Reason Start Date Expiration Date V isits Requested Visits Authorized [id number] Closed Auto-Generate d Referral 01/03/2023 02/02/2024 1 1 [facility] for referral (narrative)* Diagnostic Procedure Only (Routine) - Closed Specialty Diagnoses / Procedures Referred By Contac t Referred To Contact XR IMAGING Diagnoses Chronic pain of left knee Procedures XR KNEE GENERAL 4V AP BOTH/PA BOTH/LAT/MERC LEFT RADIOLOGIC EXAM KNEE COMPLETE 4/MORE VIEWS Elie Amaya APRN.CNP [address] [place] [id number] [place] [address] Referral ID Status Reason Start Date Expiration Date V isits Requested Visits Authorized [id number] Closed Auto-Generate d Referral 12/13/2021 01/12/2023 1 1 [facility] for referral (narrative)No reason for referral information availableWKindred Healthcare Work Phone: Reason for visit Narrative* Diagnostic Procedure Only (Routine) - Closed Specialty Diagnoses / Procedures Referred By Contac t Referred To Contact XR IMAGING Diagnoses Ulcer of toe of left foot, limited to breakdown of skin (HCC) Other diabetic neurological complication associated with type 2 diabetes mellitus (HCC) Hammertoe of left foot Procedures XR FOOT GENERAL 3V AP/LAT/OBL LEFT RADEX FOOT COMPLETE MINIMUM 3 VIEWS Ardian Leahy [address] [place] [address] [place] [address] Referral ID Status Reason Start Date Expiration Date V isits Requested Visits Authorized [id number] Closed Auto-Generate d Referral 01/03/2023 02/02/2024 1 1 [facility] N[facility]* Diagnostic Procedure Only (Routine) - Closed Specialty Diagnoses / Procedures Referred By Contac t Referred To Contact XR IMAGING Diagnoses Chronic pain of left knee Procedures XR KNEE GENERAL 4V AP BOTH/PA BOTH/LAT/MERC LEFT RADIOLOGIC EXAM KNEE COMPLETE 4/MORE VIEWS Elie Amaya APRN.GIS ADMINISTRATOR [address] [place] [address] [place] [address] Referral ID Status Reason Start Date Expiration Date V isits Requested Visits Authorized [id number] Closed Auto-Generate d Referral 12/13/2021 01/12/2023 1 1 [facility] Reason for Referral Specialty Diagnoses / Procedures Referred By Contac t Referred To Contact Orthopedics Diagnoses Chronic pain of left knee Procedures CONSULT TO ORTHOPAEDICS OFFICE/OUTPATIENT NEW HIGH MDM 60-74 MINUTES Alicia Crow, LOAN CLOSER.GIS ADMINISTRATOR [address] [place] [address] Referral ID Status Reason Start Date Expiration Date Visits Requested Visits Authorized [id number] Authorized PCP Requested Referral 2 01/12/2023 1 1 Specialty Diagnoses / Procedures Referred By Contac t Referred To Contact Podiatry Diagnoses Callus between toes Procedures CONSULT TO PODIATRY OFFICE/OUTPATIENT NEW HIGH MDM 60-74 MINUTES Alicia Crow, LOAN CLOSER.GIS ADMINISTRATOR [address] [place] [address] Referral ID Status Reason Start Date Expiration Date V isits Requested Visits Authorized [id number] Closed PCP Requested Referral 04/13/2022 04/13/2023 1 1 Specialty Diagnoses / Procedures Referred By Contac t Referred To Contact Ophthalmology Diagnoses Screening for diabetic retinopathy Procedures CONSULT TO OPHTHALMOLOGY OFFICE/OUTPATIENT NEW HIGH MDM 60-74 MINUTES Elie Amaya, LOAN CLOSER.GIS ADMINISTRATOR [address] [place] [address] Referral ID Status Reason Start Date Expiration Date Visits Requested Visits Authorized [id number] Authorized PCP Requested Referral 09/12/2022 09/12/2023 1 1 Medications Administered Section Inactive Administered Medications - up to 3 most recent administrations Medication Order MAR Action Action Date Dose Rate Site dexAMETHasone sodium phosphate 8 mg injection (DECADRON) 8 mg, Injection - FOR ORTHO USE ONLY, ONE TIME INJECTION, 1 dose, Starting on Mon01/14/22 at 0940, Until Mon01/14/22 at 0940 Given 01/14/2022 9:40 AM EST 8 mg K nee, Left lidocaine (PF) 10 mg/mL (1 %) 1 mL injection (XYLOCAINE) 1 mL, Injection - FOR ORTHO USE ONLY, ONE TIME INJECTION, 1 dose, Starting on Mon01/14/22 at 0940, Until Mon01/14/22 at 0940 Given 01/14/2022 9:40 AM EST 1 mL K nee, Left methylPREDNISolone acetate 40 mg injection (DEPO-Medrol) 40 mg, Injection - FOR ORTHO USE ONLY, ONE TIME INJECTION, 1 dose, Starting on Mon01/14/22 at 0940, Until Mon01/14/22 at 0940 Given 01/14/2022 9:40 AM EST 40 mg K nee, Left Active Administered Medications - up to 3 most recent administrations Medication Order MAR Action Action Date Dose Rate Site fluorescein-benoxinate 0.25-0.4 % 1 Drop (FLURESS) 1 Drop, BOTH EYES, DIRECTED, Starting on Mon09/19/22 at 0900, Until Mon09/19/22 at 2058, Administer for applanation tonometry. In the event of a Fluress shortage, administer [place]-Fluor 1 drop into both eyes as directed for applanation tonometry Given 09/19/2022 9:03 AM EDT 1 Drop PHENYLephrine 2.5 % 1 Drop (AK-DILATE, ROSANNA-SYNEPHRINE) 1 Drop, BOTH EYES, DIRECTED, Starting on Mon09/19/22 at 0900, Until Mon09/19/22 at 2058, Administer for dilation PROTECT FROM LIGHT Given 09/19/2022 9:03 AM EDT 1 Drop tropicamide 1 % 1 Drop (MYDRIACYL) 1 Drop, BOTH EYES, DIRECTED, Starting on Mon09/19/22 at 0900, Until Mon09/19/22 at 2058, Administer for dilation Given 09/19/2022 9:03 AM EDT 1 Drop Chief Complaint and Reason for Visit Chief Complaint RT SHOULDER PAIN, RA DICULOPATHY CERVICAL RADICULOPATHY Chief Complaint PREOP Endoscopic Carpal Tunnel Release Chief Complaint Endoscopic Carpal Tu nnel Release BILATERAL OSTEOARTHRITIS HAND. RX HERE Chief Complaint Admit Date COUGH, SINUS, BODY ACHES, HEADACHE Octob er 2024 7:49am Advance Directives No Advanced Directives Records Found Advance Directive Response Recorded Date/ Time Living Will No February 08, 023 8:13am Power of Procurement Specialist No February 08, 2023 8:13am Advance Directive Response Recorded Date/ Time Living Will No February 08, 2 023 9:13am Power of Procurement Specialist No February 08, 2023 9:13am Summary Purpose Family History No Family History Records FoundNo Family History Records Found Additional Source Comments Source Comments (unrecognize d section and content) In the event this informatio n is protected by the Federal Confidentiality of Alcohol and Drug Abuse Patient Records regulations: The Federal rules restrict any use of the information to criminally investigate or prosecute any alcohol or drug abuse patient.[facility] the event this information is protected by the Federal Confidentiality of Alcohol and Drug Abuse Patient Records regulations: The Federal rules restrict any use of the information to criminally investigate or prosecute any alcohol or drug abuse patient.[facility] the event this information is protected by the Federal Confidentiality of Alcohol and Drug Abuse Patient Records regulations: The Federal rules restrict any use of the information to criminally investigate or prosecute any alcohol or drug abuse patient.[facility] the event this information is protected by the Federal Confidentiality of Alcohol and Drug Abuse Patient Records regulations: The Federal rules restrict any use of the information to criminally investigate or prosecute any alcohol or drug abuse patient.[facility] the event this information is protected by the Federal Confidentiality of Alcohol and Drug Abuse Patient Records regulations: The Federal rules restrict any use of the information to criminally investigate or prosecute any alcohol or drug abuse patient.[facility] the event this information is protected by the Federal Confidentiality of Alcohol and Drug Abuse Patient Records regulations: The Federal rules restrict any use of the information to criminally investigate or prosecute any alcohol or drug abuse patient.[facility] the event this information is protected by the Federal Confidentiality of Alcohol and Drug Abuse Patient Records regulations: The Federal rules restrict any use of the information to criminally investigate or prosecute any alcohol or drug abuse patient.[facility] the event this information is protected by the Federal Confidentiality of Alcohol and Drug Abuse Patient Records regulations: The Federal rules restrict any use of the information to criminally investigate or prosecute any alcohol or drug abuse patient.[facility] the event this information is protected by the Federal Confidentiality of Alcohol and Drug Abuse Patient Records regulations: The Federal rules restrict any use of the information to criminally investigate or prosecute any alcohol or drug abuse patient.[facility] the event this information is protected by the Federal Confidentiality of Alcohol and Drug Abuse Patient Records regulations: The Federal rules restrict any use of the information to criminally investigate or prosecute any alcohol or drug abuse patient.[facility] the event this information is protected by the Federal Confidentiality of Alcohol and Drug Abuse Patient Records regulations: The Federal rules restrict any use of the information to criminally investigate or prosecute any alcohol or drug abuse patient.[facility] the event this information is protected by the Federal Confidentiality of Alcohol and Drug Abuse Patient Records regulations: The Federal rules restrict any use of the information to criminally investigate or prosecute any alcohol or drug abuse patient.[facility] the event this information is protected by the Federal Confidentiality of Alcohol and Drug Abuse Patient Records regulations: The Federal rules restrict any use of the information to criminally investigate or prosecute any alcohol or drug abuse patient.[facility] the event this information is protected by the Federal Confidentiality of Alcohol and Drug Abuse Patient Records regulations: The Federal rules restrict any use of the information to criminally investigate or prosecute any alcohol or drug abuse patient.[facility] the event this information is protected by the Federal Confidentiality of Alcohol and Drug Abuse Patient Records regulations: The Federal rules restrict any use of the information to criminally investigate or prosecute any alcohol or drug abuse patient.[facility] the event this information is protected by the Federal Confidentiality of Alcohol and Drug Abuse Patient Records regulations: The Federal rules restrict any use of the information to criminally investigate or prosecute any alcohol or drug abuse patient.[facility] the event this information is protected by the Federal Confidentiality of Alcohol and Drug Abuse Patient Records regulations: The Federal rules restrict any use of the information to criminally investigate or prosecute any alcohol or drug abuse patient.[facility] the event this information is protected by the Federal Confidentiality of Alcohol and Drug Abuse Patient Records regulations: The Federal rules restrict any use of the information to criminally investigate or prosecute any alcohol or drug abuse patient.[facility] the event this information is protected by the Federal Confidentiality of Alcohol and Drug Abuse Patient Records regulations: The Federal rules restrict any use of the information to criminally investigate or prosecute any alcohol or drug abuse patient.[facility] the event this information is protected by the Federal Confidentiality of Alcohol and Drug Abuse Patient Records regulations: The Federal rules restrict any use of the information to criminally investigate or prosecute any alcohol or drug abuse patient.[facility] the event this information is protected by the Federal Confidentiality of Alcohol and Drug Abuse Patient Records regulations: The Federal rules restrict any use of the information to criminally investigate or prosecute any alcohol or drug abuse patient.[facility] the event this information is protected by the Federal Confidentiality of Alcohol and Drug Abuse Patient Records regulations: The Federal rules restrict any use of the information to criminally investigate or prosecute any alcohol or drug abuse patient.[facility] the event this information is protected by the Federal Confidentiality of Alcohol and Drug Abuse Patient Records regulations: The Federal rules restrict any use of the information to criminally investigate or prosecute any alcohol or drug abuse patient.[facility] the event this information is protected by the Federal Confidentiality of Alcohol and Drug Abuse Patient Records regulations: The Federal rules restrict any use of the information to criminally investigate or prosecute any alcohol or drug abuse patient.[facility]In the event this information is protected by the Federal Confidentiality of Alcohol and Drug Abuse Patient Records regulations: The Federal rules restrict any use of the information to criminally investigate or prosecute any alcohol or drug abuse patient.[facility]In the event this information is protected by the Federal Confidentiality of Alcohol and Drug Abuse Patient Records regulations: The Federal rules restrict any use of the information to criminally investigate or prosecute any alcohol or drug abuse patient.[facility]In the event this information is protected by the Federal Confidentiality of Alcohol and Drug Abuse Patient Records regulations: The Federal rules restrict any use of the information to criminally investigate or prosecute any alcohol or drug abuse patient.[facility]In the event this information is protected by the Federal Confidentiality of Alcohol and Drug Abuse Patient Records regulations: The Federal rules restrict any use of the information to criminally investigate or prosecute any alcohol or drug abuse patient.[facility] the event this information is protected by the Federal Confidentiality of Alcohol and Drug Abuse Patient Records regulations: The Federal rules restrict any use of the information to criminally investigate or prosecute any alcohol or drug abuse patient.[facility]In the event this information is protected by the Federal Confidentiality of Alcohol and Drug Abuse Patient Records regulations: The Federal rules restrict any use of the information to criminally investigate or prosecute any alcohol or drug abuse patient.[facility]In the event this information is protected by the Federal Confidentiality of Alcohol and Drug Abuse Patient Records regulations: The Federal rules restrict any use of the information to criminally investigate or prosecute any alcohol or drug abuse patient.[facility]In the event this information is protected by the Federal Confidentiality of Alcohol and Drug Abuse Patient Records regulations: The Federal rules restrict any use of the information to criminally investigate or prosecute any alcohol or drug abuse patient.[facility]In the event this information is protected by the Federal Confidentiality of Alcohol and Drug Abuse Patient Records regulations: The Federal rules restrict any use of the information to criminally investigate or prosecute any alcohol or drug abuse patient.[facility] HospitalIn the event this information is protected by the Federal Confidentiality of Alcohol and Drug Abuse Patient Records regulations: The Federal rules restrict any use of the information to criminally investigate or prosecute any alcohol or drug abuse patient.[facility]In the event this information is protected by the Federal Confidentiality of Alcohol and Drug Abuse Patient Records regulations: The Federal rules restrict any use of the information to criminally investigate or prosecute any alcohol or drug abuse patient.[facility]In the event this information is protected by the Federal Confidentiality of Alcohol and Drug Abuse Patient Records regulations: The Federal rules restrict any use of the information to criminally investigate or prosecute any alcohol or drug abuse patient.[facility]In the event this information is protected by the Federal Confidentiality of Alcohol and Drug Abuse Patient Records regulations: The Federal rules restrict any use of the information to criminally investigate or prosecute any alcohol or drug abuse patient.[facility]In the event this information is protected by the Federal Confidentiality of Alcohol and Drug Abuse Patient Records regulations: The Federal rules restrict any use of the information to criminally investigate or prosecute any alcohol or drug abuse patient.[facility]In the event this information is protected by the Federal Confidentiality of Alcohol and Drug Abuse Patient Records regulations: The Federal rules restrict any use of the information to criminally investigate or prosecute any alcohol or drug abuse patient.[facility]In the event this information is protected by the Federal Confidentiality of Alcohol and Drug Abuse Patient Records regulations: The Federal rules restrict any use of the information to criminally investigate or prosecute any alcohol or drug abuse patient.[facility] HospitalIn the event this information is protected by the Federal Confidentiality of Alcohol and Drug Abuse Patient Records regulations: The Federal rules restrict any use of the information to criminally investigate or prosecute any alcohol or drug abuse patient.[facility]In the event this information is protected by the Federal Confidentiality of Alcohol and Drug Abuse Patient Records regulations: The Federal rules restrict any use of the information to criminally investigate or prosecute any alcohol or drug abuse patient.[facility]In the event this information is protected by the Federal Confidentiality of Alcohol and Drug Abuse Patient Records regulations: The Federal rules restrict any use of the information to criminally investigate or prosecute any alcohol or drug abuse patient.[facility]In the event this information is protected by the Federal Confidentiality of Alcohol and Drug Abuse Patient Records regulations: The Federal rules restrict any use of the information to criminally investigate or prosecute any alcohol or drug abuse patient.[facility]In the event this information is protected by the Federal Confidentiality of Alcohol and Drug Abuse Patient Records regulations: The Federal rules restrict any use of the information to criminally investigate or prosecute any alcohol or drug abuse patient.[facility]In the event this information is protected by the Federal Confidentiality of Alcohol and Drug Abuse Patient Records regulations: The Federal rules restrict any use of the information to criminally investigate or prosecute any alcohol or drug abuse patient.[facility]In the event this information is protected by the Federal Confidentiality of Alcohol and Drug Abuse Patient Records regulations: The Federal rules restrict any use of the information to criminally investigate or prosecute any alcohol or drug abuse patient.[facility] HospitalIn the event this information is protected by the Federal Confidentiality of Alcohol and Drug Abuse Patient Records regulations: The Federal rules restrict any use of the information to criminally investigate or prosecute any alcohol or drug abuse patient.[facility]In the event this information is protected by the Federal Confidentiality of Alcohol and Drug Abuse Patient Records regulations: The Federal rules restrict any use of the information to criminally investigate or prosecute any alcohol or drug abuse patient.[facility] Reason for Visit (unrecogniz ed section and content) Reason Comments Medication Problem Reason Comments Recheck Reason Comments Refill Request Reason Comments Establish Care Reason Comments Follow Up Reason Comments Acute Visit left knee pain Reason Comments New Knee Pain Specialty Diagnoses / Procedures Referred By Contac t Referred To Contact Orthopedics Diagnoses Chronic pain of left knee Procedures CONSULT TO ORTHOPAEDICS OFFICE/OUTPATIENT NEW HIGH MDM 60-74 MINUTES Alicia Crow, LOAN CLOSER.GIS ADMINISTRATOR [address] [place] [address] Referral ID Status Reason Start Date Expiration Date V isits Requested Visits Authorized [id number] Closed PCP Requested Referral 01/12/2022 01/12/2023 1 1 Reason Onset Date Comments Refill Request 03/10/2022 Reason Comments Acute Visit left foot 4th digit Reason Comments New Pain Callous Specialty Diagnoses / Procedures Referred By Contac t Referred To Contact Podiatry Diagnoses Callus between toes Procedures CONSULT TO PODIATRY OFFICE/OUTPATIENT [facility] MDM 60-74 MINUTES Alicia Crow, LOAN CLOSER.GIS ADMINISTRATOR [address] [place] [address] Referral ID Status Reason Start Date Expiration Date V isits Requested Visits Authorized [id number] Closed PCP Requested Referral 04/13/2022 04/13/2023 1 1 Reason Comments F/U 6 Month Reason Comments Insurance Authorization dulaglutide (WEI LICITY) 0.75 mg/0.5 mL pen injector- patient told last night when he went to picker box operator the medication that it was declined by his insurance Reason Comments 3 month f/u Reason Comments Results Reason Comments Diabetic Eye Exam Specialty Diagnoses / Procedures Referred By Contac t Referred To Contact Ophthalmology Diagnoses Screening for diabetic retinopathy Procedures CONSULT TO OPHTHALMOLOGY OFFICE/OUTPATIENT NEW HIGH MDM 60-74 MINUTES Elie Amaya, LOAN CLOSER.GIS ADMINISTRATOR [address] [place] [address] Referral ID Status Reason Start Date Expiration Date V isits Requested Visits Authorized [id number] Closed PCP Requested Referral 09/12/2022 09/12/2023 1 1 Reason Onset Date Comments Refill Request 12/14/2022 Reason Comments Established Patient Left foot hammer toe s Reason Comments Patient Question Appointment Reason Onset Date Comments Refill Request 04/06/2023 Reason Onset Date Comments Refill Request 05/09/2023 Reason Comments Established Patient Follow Up Pain Callous Hammer Toe Reason Comments Insurance Authorization trulicity Reason Comments Insurance Authorization Reason Comments Diabetic Eye Exam Type 2 IDDM Reason Comments Yearly Exam Reason Comments Follow Up 4 week Reason Comments Cough Reason Comments Hospital Follow Up Reason Comments Follow Up 5 month Reason Onset Date Comments Refill Request 05/06/2024 Reason Onset Date Comments Refill Request 08/26/2024 Reason Comments Established Patient Discuss test results and options Callous Discuss test results and options Reason Comments Diabetic Eye Exam Type 2 Reason Comments F/U 6 months Care Teams (unrecognized sec tion and content) Team Status: Active Member Role Status Dates Elie Amaya CAN SOLDERER, CAN SOLDERER-C Primary Care Provider Active Team Status: Inactive Member Role Status Dates Elie Amaya CAN SOLDERER, CAN SOLDERER-C Primary Care Provider Active Dr. Florentino Schneider DO Attending Provider, Referrin g Provider Active Team Status: Active Member Role Status Dates Elie Amaya NP, CAN SOLDERER-C Primary Care Provider Active Dr. Rohini Beckwith MD Attending Provider Activ e Dr. Florentino Schneider DO Referring Provider Active Tie Tamper Relationship Specialty Start Date End Date Jakob Dang, LOAN CLOSER.GIS ADMINISTRATOR, DNP [address] [place] [address] PCP - General Family Practice 09/23/19 Tie Tamper Relationship Specialty Start Date End Date Jakob Dang, LOAN CLOSER.GIS ADMINISTRATOR, DNP [address] [place], [place] [address] PCP - General Family Practice 09/23/19 Tie Tamper Relationship Specialty Start Date End Date Jakob Dang, LOAN CLOSER.[place], DNP [address] [place], [place] [address] PCP - General Family Practice 09/23/19 Tie Tamper Relationship Specialty Start Date End Date Ching Leonard MD [address] [facility] [address] PCP - General Family Practice 09/08/21 Tie Tamper Relationship Specialty Start Date End Date Ching Leonard MD [address] [facility] [address] PCP - General Family Medicine 09/08/21 Tie Tamper Relationship Specialty Start Date End Date Ching Leonard MD [address] [facility] [address] PCP - General Family Medicine 09/08/21 Tie Tamper Relationship Specialty Start Date End Date Ching Leonard MD [address] [facility] [address] PCP - General Family Medicine 09/08/21 Tie Tamper Relationship Specialty Start Date End Date Ching Leonard MD [address] [facility] [address] PCP - General Family Medicine 09/08/21 Tie Tamper Relationship Specialty Start Date End Date Ching Leonard MD [address] [facility] [address] PCP - General Family Medicine 09/08/21 Tie Tamper Relationship Specialty Start Date End Date Ching Leonard MD [address] [facility] [address] PCP - General Family Medicine 09/08/21 Tie Tamper Relationship Specialty Start Date End Date Ching Leonard MD [address] [facility] [address] PCP - General Family Medicine 09/08/21 Tie Tamper Relationship Specialty Start Date End Date Ching Leonard MD [address] [facility] [address] PCP - General Family Medicine 09/08/21 Team Status: Inactive Member Role Status Dates Elie Amaya CAN SOLDERER, CAN SOLDERER-C Primary Care Provider Active Dr. Josué Blackmon MD Attending Provider, Referring Pr ovider Active Tie Tamper Relationship Specialty Start Date End Date Ching Leonard MD [address] [facility] [address] PCP - General Family Medicine 09/08/21 Tie Tamper Relationship Specialty Start Date End Date Ching Leonard MD [address] [facility] [address] PCP - General Family Medicine 09/08/21 Tie Tamper Relationship Specialty Start Date End Date Ching Leonard MD [address] [facility] [address] PCP - General Family Medicine 09/08/21 Tie Tamper Relationship Specialty Start Date End Date Ching Leonard MD [address] [facility] [address] PCP - General Family Medicine 09/08/21 Tie Tamper Relationship Specialty Start Date End Date Ching Leonard MD [address] [facility] [address] PCP - General Family Medicine 09/08/21 Tie Tamper Relationship Specialty Start Date End Date Ching Leonard MD [address] [facility] [address] PCP - General Family Medicine 09/08/21 Tie Tamper Relationship Specialty Start Date End Date Ching Leonard MD [address] [facility] [address] PCP - General Family Medicine 09/08/21 Tie Tamper Relationship Specialty Start Date End Date Ching Leonard MD [address] [facility] [address] PCP - General Family Medicine 09/08/21 Tie Tamper Relationship Specialty Start Date End Date Ching Leonard MD [address] [place] [address] PCP - General Family Medicine 09/08/21 Tie Tamper Relationship Specialty Start Date End Date Ching Leonard MD [address] [place] [address] PCP - General Family Medicine 09/08/21 Tie Tamper Relationship Specialty Start Date End Date Ching Leonard MD [address] [place] [address] PCP - General Family Medicine 09/08/21 Tie Tamper Relationship Specialty Start Date End Date Ching Leonard MD [address] [place] [address] PCP - General Family Medicine 09/08/21 Tie Tamper Relationship Specialty Start Date End Date Ching Leonard MD [address] [facility] [address] PCP - General Family Medicine 09/08/21 Tie Tamper Relationship Specialty Start Date End Date Ching Leonard MD [address] [facility] [address] PCP - General Family Medicine 09/08/21 Tie Tamper Relationship Specialty Start Date End Date Ching Leonard MD [address] [facility] [address] PCP - General Family Medicine 09/08/21 Tie Tamper Relationship Specialty Start Date End Date Ching Leonard MD [address] [place] [address] PCP - General Family Medicine 09/08/21 Tie Tamper Relationship Specialty Start Date End Date Ching Leonard MD [address] [place] [address] PCP - General Family Medicine 09/08/21 Tie Tamper Relationship Specialty Start Date End Date Ching Leonard MD [address] [place] [address] PCP - General Family Medicine 09/08/21 Alicia Crow APRN.GIS ADMINISTRATOR [address] [place] [address] [employer] Family Medicine 02/04/24 Tie Tamper Relationship Specialty Start Date End Date Ching Leonard MD [address] [place] [address] PCP - General Family Medicine 09/08/21 Alicia Crow, EULOGIO.GIS ADMINISTRATOR [address] [place] [address] [employer] Family Medicine 02/04/24 Tie Tamper Relationship Specialty Start Date End Date Ching Leonard MD [address] [place] [address] PCP - General Family Medicine 09/08/21 Alicia Crow APRN.GIS ADMINISTRATOR [address] [place] [address] [employer] Family Medicine 02/04/24 Elie Amaya APRN.GIS ADMINISTRATOR [address] [facility] [address] [employer] Family Medicine 02/13/24 Tie Tamper Relationship Specialty Start Date End Date Ching Leonard MD [address] [place] [address] PCP - General Family Medicine 09/08/21 Alicia Crow APRN.GIS ADMINISTRATOR [address] [place] [address] [employer] Family Medicine 02/04/24 Elie Amaya APRN.GIS ADMINISTRATOR [address] [place] [address] [employer] [facility] 02/13/24 Tie Tamper Relationship Specialty Start Date End Date Ching Leonard MD [address] [place] [address] PCP - General Family Medicine 09/08/21 Alicia Crow APRN.GIS ADMINISTRATOR [address] [place] [address] [employer] Family Medicine 02/04/24 Elie Amaya APRN.GIS ADMINISTRATOR [address] [place] [address] [employer] Family Medicine 02/13/24 Tie Tamper Relationship Specialty Start Date End Date Ching Leonard MD [address] [place] [address] PCP - General Family Medicine 09/08/21 Alicia Crow APRN.GIS ADMINISTRATOR [address] [place] [address] [employer] Family Medicine 02/04/24 Elie Amaya APRN.GIS ADMINISTRATOR [address] [place] [address] [employer] [facility] 02/13/24 Tie Tamper Relationship Specialty Start Date End Date Ching Leonard MD [address] [place] [address] PCP - General Family Medicine 09/08/21 Alicia Crow APRN.GIS ADMINISTRATOR [address] [place] [address] [employer] Family Medicine 02/04/24 Elie Amaya LOAN CLOSER.GIS ADMINISTRATOR [address] [place] [address] [employer] [facility] 02/13/24 Tie Tamper Relationship Specialty Start Date End Date Ching Leonard MD [address] [place] [address] PCP - General Family Medicine 09/08/21 Elie Amaya LOAN CLOSER.GIS ADMINISTRATOR [address] [place] [address] [facility] 02/13/24 Tie Tamper Relationship Specialty Start Date End Date Ching Leonard MD [address] [place] [address] PCP - General Family Medicine 09/08/21 Elie Amaya APRN.GIS ADMINISTRATOR [address] [place] [address] [employer] Family Medicine 02/13/24 Tie Tamper Relationship Specialty Start Date End Date Ching Leonard MD [address] [place] [address] PCP - General Family Medicine 09/08/21 Elie Amaya APRN.GIS ADMINISTRATOR [address] [place] [address] [employer] Family Medicine 02/13/24 Tie Tamper Relationship Specialty Start Date End Date Ching Leonard MD [address] [place] [address] PCP - General Family Medicine 09/08/21 Elie Amaya APRN.GIS ADMINISTRATOR [address] [place] [address] [employer] Family Medicine 02/13/24 Tie Tamper Relationship Specialty Start Date End Date Ching Leonard MD [address] [place] [address] PCP - General Family Medicine 09/08/21 Elie Amaya APRN.GIS ADMINISTRATOR [address] [place] [address] [employer] Family Medicine 02/13/24 Tie Tamper Relationship Specialty Start Date End Date Ching Leonard MD [address] [place] [address] PCP - General Family Medicine 09/08/21 Elie Amaya APRN.GIS ADMINISTRATOR [address] [place] [address] [employer] Family Medicine 02/13/24 Team Status: Active Member Role/Relationship Status Dates Elie Amaya CAN SOLDERER, CAN SOLDERER-C Primary care physician Active Team Status: Inactive Member Role/Relationship Status Dates Elie Amaya NP, CAN SOLDERER-C Primary care physician Active Start: December 05, 2024 End: December 05, 2024 Elie Amaya NP, CAN SOLDERER-C Referring Provider Active S tart: December 05, 2024 End: December 05, 2024 Abbe BURROUGHS PA Attending physician Active St art: December 05, 2024 End: December 05, 2024 Goals (unrecognized section and content) Goals may be documented in a n alternate sectionGoals may be documented in an alternate sectionGoals may be documented in an alternate section (unrecognized sect ion and content) No Status Records FoundNo Status Records Found INFORMATION SOURCE (unrecogn ized section and content) DATE CREATED AUTHOR 12/03/2024 [facility] DATE CREATED AUTHOR AUTHOR'S ORGANIZ ATION 12/07/2024 [facility] FOR RECORDS PERTAINING TO PATIENTS WHO ARE OR HAVE BEEN ENROLLED IN A CHEMICAL DEPENDENCY/SUBSTANCEABUSE PROGRAM, SOME INFORMATION MAY BE OMITTED. This clinical summary was aggregated from multiple sources. Caution should be exercised in using it in the provision of clinical care. This summary normalizes information from multiple sources, and as a consequence, information in this document may materially change the coding, format and clinical context of patient data. In addition, data may be omitted in some cases. CLINICAL DECISIONS SHOULD BE BASED ON THE PRIMARY CLINICAL RECORDS. [employer] provides no warranty or guarantee of the accuracy or completeness of information in this document.
[2025-01-29 10:18] LABS: Hematocrit 40.5 % (40-54); Hemoglobin 13.9 g/dL (13.0-16.5); Immature Granulocytes Count 0.020 X10^3/uL (0.0-0.0); Mean Corp Hgb Conc 34.3 g/dL (32-36); Mean Corpuscular Volume 87.5 fL (80-94); Mean Platelet Vol. 10.3 fl (6.2-12.0); NRBC Flagged by Analyzer 0 % (0-5); Platelet Count 216 K/mm3 (150-450); RBC Distribution Width CV 11.9 % (11.6-14.6); RBC Distribution Width SD 38.5 fl (35.1-43.9); Red Blood Count 4.63 M/mm3 (4.6-6.2); White Blood Count 6.9 K/mm3 (4.4-11.0)
[2025-01-29 10:38] LABS: Anion Gap 10 (5-15); BUN 18 mg/dL (4-19); BUN/Creat Ratio 19.1 RATIO (10-20); Calcium,Total 8.8 mg/dL (7.6-11.0); Carbon Dioxide 24.6 mmol/L (21.0-32.0); Chloride 103 mmol/L (98-108); Glucose 128 mg/dL (70-99); Potassium 4.1 mmol/L (3.3-5.1)
== END | disposition home or self-care (01) ==
LOC: MTLAB 07:37
PROVIDERS: PCP Nurse Practitioner Family; Referring Provider Physician Assistant Surgical; Visit Provider Physician Assistant Surgical
DX: Z01.818 Encounter for other preprocedural examination (principal)
CPT/HCPCS: 36415; 80048; 83036; 85025